=== PATIENT | male | born 1955 | race Caucasian/White ===

== ENCOUNTER 2019-02-26 15:16 | Inpatient (IN) | payer OTHER ==
[~2019-02-26] VITALS: Ht 188 cm; Wt 81.7 kg
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
[2019-02-26 16:32] VITALS: BP 134/88
[2019-02-26] MEDS ORDERED: METHYL SALICYLATE/MENTHOL TOPICAL OINTMENT 29GM TUBE. TP PRN (16:45)
[2019-02-26] MEDS ORDERED: MAG HYDROX/AL HYDROX/SIMETH 30 ML ORAL.SUSP PO PRN (16:45)
[2019-02-26] MEDS ORDERED: MAGNESIUM HYDROXIDE 2,400 MG/30 ML ORAL.SUSP. PO PRN (16:45)
[2019-02-26] MEDS ORDERED: ATOR40TA59 PO (17:08)
[2019-02-26] MEDS ORDERED: METF10007 PO (17:08)
[2019-02-26] MEDS ORDERED: ASPI-630 PO (17:08)
[2019-02-26] MEDS ORDERED: DULO60CA6 PO (17:08)
[2019-02-26] MEDS ORDERED: CYAN10005 PO (17:08)
[2019-02-26] MEDS ORDERED: SAXA5TAB PO (17:08)
[2019-02-26] MEDS ORDERED: CYAN10002 IJ ×2 (17:08→17:12)
[2019-02-26 17:24] LABS: BASO % 0 % (0-3); EOS # 0.1 x10^3/uL (0.0-0.7); EOS % 1 % (0-3); HEMATOCRIT 51.3 % (39.0-53.0); HEMOGLOBIN 17.2 g/dL (13.0-17.5); LYMPH # 0.8 x10^3/uL (1.0-4.8); LYMPH % 8 % (24-48); MEAN CORPUSCULAR HEMOGLOBIN 29 pg (25-35); MEAN CORPUSCULAR HGB CONC 34 g/dL (31-37); MEAN CORPUSCULAR VOLUME 87 fL (79-100); MONO # 0.5 x10^3/uL (0.0-1.1); MONO % 5 % (0-9); NEUT # 8.7 x10^3uL (1.8-7.7); NEUT % 86 % (31-73); PLATELET COUNT 187 x10^3/uL (140-400); WHITE BLOOD COUNT 10.2 x10^3/uL (4.0-11.0)
[2019-02-26] MEDS: metFORMIN 500 MG TABLET PO SCH (17:33)
[2019-02-26 17:35] LABS: ALBUMIN 3.6 g/dL (3.4-5.0); ALBUMIN/GLOBULIN RATIO 0.8 (1.0-1.7); CALCIUM 9.9 mg/dL (8.5-10.1); CREATININE 1.3 mg/dL (0.7-1.3); GFR 56.1; MAGNESIUM 1.8 mg/dL (1.8-2.4); POTASSIUM 4.1 mmol/L (3.5-5.1); TOTAL BILIRUBIN 0.3 mg/dL (0.2-1.0)
--- NOTE | 2019-02-26 20:00 | NUR ---
Behavior Intervention Response and Plan: BIRP Note: Behavior: Assumed Care of patient, patient located in Hallway at shift change. Patient exhibited the following behavior Disorganized, Calm, Cooperative. Brief assessment on rounds of vital signs, medication needs, lab studies, and pain. Treatment plan problems . Intervention: Patient assessed and the following interventions initiated safety checks 15 Minute Checks Cognitive Assessment , Head to toe Assessment , Medications. Response: After interactions and interventions patient responded in the following manner, Drowsy , Calm ,Sleeping. Continue to assess behaviors and condition will continue to monitor throughout the shift as needed. Patient educated on ADL's, and hand hygiene. Plan: Continue to monitor Master Treatment Plan for patient's progress toward short term goals of No harm To self/ others, Decreased Anxiety, senior care goals to return to previous living setting vs placement. Continue to assess patient for changes in above assessment. Monitor for medication needs, pain, and safety concerns. Hourly rounding performed to ensure safe environment.
[2019-02-26] MEDS: ATORVASTATIN CALCIUM 20 MG TABLET PO SCH (21:12)
--- NOTE | 2019-02-26 22:44 | PDOC ---
Exam Note: Da Note: Please also refer to the separate dictated note~for this date of service dictated separately. Discussed the patient with Nursing staff reviewed the chart.~Reviewed interim history and current functioning. Reviewed vital signs,~ Labs/ Radiology~and current medications noted below. Continue current treatment with the changes noted in the dictated addendum note Assessment: Vital Signs: Vital Signs Date Time Temp Pulse Resp B/P (MAP) Pulse Ox O2 Delivery O2 Flow Rate FiO2 02/26/19 16:32 97.6 84 19 134/88 (103) 99 Room Air Labs: Laboratory Tests Test 02/26/19 17:10 White Blood Count 10.2 x10^3/uL (4.0-11.0) Red Blood Count 5.90 x10^6/uL (4.30-5.70) H Hemoglobin 17.2 g/dL (13.0-17.5) Hematocrit 51.3 % (39.0-53.0) Mean Corpuscular Volume 87 fL (79-100) Mean Corpuscular Hemoglobin 29 pg (25-35) Mean Corpuscular Hemoglobin Concent 34 g/dL (31-37) Red Cell Distribution Width 14.0 % (11.5-14.5) Platelet Count 187 x10^3/uL (140-400) Neutrophils (%) (Auto) 86 % (31-73) H Lymphocytes (%) (Auto) 8 % (24-48) L Monocytes (%) (Auto) 5 % (0-9) Eosinophils (%) (Auto) 1 % (0-3) Basophils (%) (Auto) 0 % (0-3) Neutrophils # (Auto) 8.7 x10^3uL (1.8-7.7) H Lymphocytes # (Auto) 0.8 x10^3/uL (1.0-4.8) L Monocytes # (Auto) 0.5 x10^3/uL (0.0-1.1) Eosinophils # (Auto) 0.1 x10^3/uL (0.0-0.7) Basophils # (Auto) 0.0 x10^3/uL (0.0-0.2) Sodium Level 140 mmol/L (136-145) Potassium Level 4.1 mmol/L (3.5-5.1) Chloride Level 102 mmol/L (98-107) Carbon Dioxide Level 31 mmol/L (21-32) Anion Gap 7 (6-14) Blood Urea Nitrogen 18 mg/dL (8-26) Creatinine 1.3 mg/dL (0.7-1.3) Estimated GFR (Cockcroft-Gault) 56.1 BUN/Creatinine Ratio 14 (6-20) Glucose Level 187 mg/dL (70-99) H Calcium Level 9.9 mg/dL (8.5-10.1) Magnesium Level 1.8 mg/dL (1.8-2.4) Total Bilirubin 0.3 mg/dL (0.2-1.0) Aspartate Amino Transferase (AST) 14 U/L (15-37) L Alanine Aminotransferase (ALT) 24 U/L (16-63) Alkaline Phosphatase 125 U/L (46-116) H Total Protein 8.0 g/dL (6.4-8.2) Albumin 3.6 g/dL (3.4-5.0) Albumin/Globulin Ratio 0.8 (1.0-1.7) L Current Medications: Meds: Current Medications Acetaminophen (Tylenol) 650 mg PRN Q6HRS PRN PO PAIN / TEMP; Start 02/26/19 at 16:45 Multi-Ingredient Ointment (Analgesic [place]) 1 kory PRN QID PRN TP MUSCLE PAIN; Start 02/26/19 at 16:45 Al Hydroxide/Mg Hydroxide (Mylanta Plus Xs) 15 ml PRN AFTMEALHC PRN PO DYSPEPSIA; Start 02/26/19 at 16:45 Magnesium Hydroxide (Milk Of Magnesia) 2,400 mg PRN QHS PRN PO CONSTIPATION; Start 02/26/19 at 16:45 Cyanocobalamin (Vitamin B-12) 1,000 mcg WEEKLY IM ; Start 03/04/19 at 09:00; Stop 03/04/19 at 09:00; Status DC Cyanocobalamin (Vitamin B-12) 1,000 mcg DAILY PO ; Start 02/27/19 at 09:00 Aspirin (Children'S Aspirin) 81 mg DAILYWBKFT PO ; Start 02/27/19 at 08:00 Atorvastatin Calcium (Lipitor) 40 mg QHS PO Last administered on 02/26/19at 21:12 ; Start 02/26/19 at 21:00 Duloxetine HCl (Cymbalta) 90 mg DAILY PO ; Start 02/27/19 at 09:00 Metformin HCl (Glucophage) 1,000 mg BIDWMEALS PO Last administered on 02/26/19at 17:33; Start 02/26/19 at 17:00 Linagliptin (Tradjenta) 5 mg DAILY PO ; Start 02/27/19 at 09:00 Cyanocobalamin (Vitamin B-12) 1,000 mcg [id number] IM ; Start 04/15/19 at 09:00 Active Scripts Active Reported Cyanocobalamin Injection (Cyanocobalamin (Vitamin B-12)) 1,000 Mcg/1 Ml Vial 1, 000 Mcg IJ [id number] Onglyza (Saxagliptin Hcl) 5 Mg Tablet 5 Mg PO DAILY Metformin Hcl 1,000 Mg Tablet 1,000 Mg PO BIDWMEALS Cymbalta (Duloxetine Hcl) 60 Mg Capsule.dr 90 Mg PO DAILY Atorvastatin Calcium 40 Mg Tablet 40 Mg PO QHS Aspirin 81 Mg Tab.chew 81 Mg PO DAILY Cyanocobalamin Injection (Cyanocobalamin (Vitamin B-12)) 1,000 Mcg/1 Ml Vial 1, 000 Mcg IJ WEEKLY Vitamin B-12 (Cyanocobalamin (Vitamin B-12)) 1,000 Mcg Tablet 1,000 Mcg PO DAILY I have reviewed the current psychotropics carefully including drug interactions. Risk benefit ratio favors no change other than as noted in my dictated progress note. 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
[2019-02-27 03:07] LABS: HEMOGLOBIN A1C 7.8 % (4.8-5.6)
[2019-02-27 04:11] LABS: THYROXINE 7.5 ug/dL (4.5-12.0)
[2019-02-27 05:51] VITALS: BP 129/80
[2019-02-27 08:18] LABS: BACTERIA,URINE 0 /HPF (0-FEW); BILIRUBIN,URINE NEG (NEG); CLARITY,URINE CLEAR; COLOR,URINE YELLOW; GLUCOSE,URINE NEG (NEG); NITRITE,URINE NEG (NEG); RBC,URINE RARE /HPF (0-2); SQUAMOUS EPITHELIAL CELL,UR OCC /LPF; UROBILINOGEN,URINE 0.2 mg/dL (0.2 mg/dL); WBC,URINE OCC /HPF (0-4)
[2019-02-27] MEDS: metFORMIN 500 MG TABLET PO SCH ×2 (08:30→17:19)
[2019-02-27] MEDS: CYANOCOBALAMIN (VITAMIN B-12) 1,000 MCG TABLET. PO SCH (08:31)
[2019-02-27] MEDS: LINAGLIPTIN 5 MG TABLET PO SCH (08:31)
[2019-02-27] MEDS: DULoxetine HCL 30 MG CAPSULE.DR PO SCH (08:31)
[2019-02-27] MEDS: ASPIRIN 81 MG TAB.CHEW PO SCH (08:31)
--- NOTE | 2019-02-27 08:35 | NUR ---
On 02/26/19, 9:29am, call placed to Ashely at [employer] to verify Loki has in patient psychiatric benefits. Ashely confirmed Loki has benefits. Upon admit to [facility], SW will need to call [phone] to provide diagnosis to determine if pre-authorization and concurrent reviews will be necessary. Call reference number is [id number].
--- NOTE | 2019-02-27 09:23 | NUR ---
SW received a call from pt sister to make sure that pt had all of the paperwork needed for pt admission. SW informed pt sister that she has not reviewed pt paperwork yet, as he was just admitted last night. However, SW will look through pt chart and will let pt sister know. She is just mainly concerned about whether or not his information from the physician was transferred with him. Her concerns are that pt is to receive a B12 shot and wants to make sure that he is able to receive that while here. REJI will return his sister's call with that information.
--- NOTE | 2019-02-27 11:09 | NUR ---
Nursing Note Calm, compliant w/ medications taken whole, talkative about acquiring antique radios and television and reselling them via the computer. Gave very detailed info about where he traveled, things he acquired, and what rare type of wood some the radios were made of. Pt lost his train of thought a number of times during the conversation.
--- NOTE | 2019-02-27 11:23 | NUR ---
REJI contacted arnie to complete potential prior authorization and spoke with Kat who would not take the prior auth over the phone. She requested that SW complete the online form and attach clinicals. Kat walked REJI through the process and made sure SW knew that they had a 24 hour time frame to inform SW of pt PA status and whether or not a concurrent review will be recommended.
[2019-02-27 13:54] LABS: THYROID STIM HORMONE (TSH) 2.281 uIU/mL (0.358-3.740)
[2019-02-27 16:50] VITALS: BP 106/70
--- NOTE | 2019-02-27 17:04 | RAD ---
CT HEAD WO CONTRAST Indication: BASELINE, FORGETFULLNESS, LOOSES TRAIN OF THOUGHT. Exposure: One or more of the following individualized dose reduction techniques were utilized for this examination: 1. Automated exposure control 2. Adjustment of the mA and/or kV according to patient size 3. Use of iterative reconstruction technique. Technique: Standard imaging without intravenous contrast. No prior study for comparison. Posterior fossa unremarkable. No acute intracranial hemorrhage, mass effect, midline shift or abnormal extra-axial fluid collection. Mild prominence of ventricles and sulci compatible with generalized atrophy. The partially visualized paranasal sinuses are clear. No acute skull abnormality. Orbits appear unremarkable. No evidence of large area of scalp swelling. IMPRESSION: No evidence of acute intracranial hemorrhage or mass effect. Consider MR brain if continued workup is warranted. Electronically signed by: Gabe Varner MD (02/27/2019 5:01 PM) [facility]
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
[2019-02-27] MEDS: QUEtiapine 25 MG TABLET. PO SCH (19:55)
[2019-02-27] MEDS: CHOLECALCIFEROL (VITAMIN D3) 50,000 UNIT CAPSULE PO SCH (19:55)
[2019-02-27] MEDS: ATORVASTATIN CALCIUM 20 MG TABLET PO SCH (19:55)
--- NOTE | 2019-02-27 22:36 | PDOC ---
Exam Note: Da Note: Please also refer to the separate dictated note~for this date of service dictated separately.~Patient seen individually. Discussed the patient with Nursing staff reviewed the chart.~Reviewed interim history and current functioning. Reviewed vital signs,~Labs/ Radiology~and current medications noted below. Continue current treatment with the changes noted in the dictated addendum note Assessment: Vital Signs: Vital Signs Date Time Temp Pulse Resp B/P (MAP) Pulse Ox O2 Delivery O2 Flow Rate FiO2 02/27/19 16:50 97.4 86 20 106/70 (82) 97 02/26/19 16:32 Room Air I&O Intake and Output 02/27/19 07:00 Intake Total 480 ml Balance 480 ml Intake Oral 480 ml Labs: Laboratory Tests Test 02/27/19 07:45 02/27/19 07:50 Urine Collection Type Void Urine Color Yellow Urine Clarity Clear Urine pH 5.0 Urine Specific [place] 1.025 Urine Protein Neg (NEG-TRACE) Urine Glucose (UA) Neg mg/dL (NEG) Urine Ketones (Stick) Neg mg/dL (NEG) Urine Blood Neg (NEG) Urine Nitrite Neg (NEG) Urine Bilirubin Neg (NEG) Urine Urobilinogen Dipstick 0.2 mg/dL (0.2 mg/dL) Urine Leukocyte Esterase Neg (NEG) Urine RBC Rare /HPF (0-2) Urine WBC Occ /HPF (0-4) Urine Squamous Epithelial Cells Occ /LPF Urine Bacteria 0 /HPF (0-FEW) Urine Mucus Slight /LPF Glucose (Fingerstick) 138 mg/dL (70-99) H Current Medications: Meds: Current Medications Acetaminophen (Tylenol) 650 mg PRN Q6HRS PRN PO PAIN / TEMP; Start 02/26/19 at 16:45 Multi-Ingredient Ointment (Analgesic [place]) 1 kory PRN QID PRN TP MUSCLE PAIN; Start 02/26/19 at 16:45 Al Hydroxide/Mg Hydroxide (Mylanta Plus Xs) 15 ml PRN AFTMEALHC PRN PO DYSPEPSIA; Start 02/26/19 at 16:45 Magnesium Hydroxide (Milk Of Magnesia) 2,400 mg PRN QHS PRN PO CONSTIPATION; Start 02/26/19 at 16:45 Cyanocobalamin (Vitamin B-12) 1,000 mcg WEEKLY IM ; Start 03/04/19 at 09:00; Stop 03/04/19 at 09:00; Status DC Cyanocobalamin (Vitamin B-12) 1,000 mcg DAILY PO Last administered on 02/27/19 08:31; Start 02/27/19 at 09:00 Aspirin (Children'S Aspirin) 81 mg DAILYWBKFT PO Last administered on 02/27/19 08:31; Start 02/27/19 at 08:00 Atorvastatin Calcium (Lipitor) 40 mg QHS PO Last administered on 02/27/19 19:55 ; Start 02/26/19 at 21:00 Duloxetine HCl (Cymbalta) 90 mg DAILY PO Last administered on 02/27/19 08:31; Start 02/27/19 at 09:00 Metformin HCl (Glucophage) 1,000 mg BIDWMEALS PO Last administered on 02/27/19 17:19; Start 02/26/19 at 17:00 Linagliptin (Tradjenta) 5 mg DAILY PO Last administered on 02/27/19 08:31; Start 02/27/19 at 09:00 Cyanocobalamin (Vitamin B-12) 1,000 mcg [id number] IM ; Start 04/15/19 at 09:00 Rivastigmine (Exelon) 1 patch DAILY TD ; Start 02/28/19 at 09:00; Stop 03/04/19 at 23:50 Rivastigmine (Exelon) 1 patch DAILY TD ; Start 03/05/19 at 09:00 Quetiapine Fumarate (SEROquel) 25 mg QHS PO Last administered on 02/27/19 19:55 ; Start 02/27/19 at 21:00 Vitamin D (Vitamin D3) 50,000 unit WEEKLY PO Last administered on 02/27/19 19: 55; Start 02/27/19 at 18:30 Active Scripts Active Reported Cyanocobalamin Injection (Cyanocobalamin (Vitamin B-12)) 1,000 Mcg/1 Ml Vial 1, 000 Mcg IJ [id number] Onglyza (Saxagliptin Hcl) 5 Mg Tablet 5 Mg PO DAILY Metformin Hcl 1,000 Mg Tablet 1,000 Mg PO BIDWMEALS Cymbalta (Duloxetine Hcl) 60 Mg Capsule.dr 90 Mg PO DAILY Atorvastatin Calcium 40 Mg Tablet 40 Mg PO QHS Aspirin 81 Mg Tab.chew 81 Mg PO DAILY Cyanocobalamin Injection (Cyanocobalamin (Vitamin B-12)) 1,000 Mcg/1 Ml Vial 1, 000 Mcg IJ WEEKLY Vitamin B-12 (Cyanocobalamin (Vitamin B-12)) 1,000 Mcg Tablet 1,000 Mcg PO DAILY I have reviewed the current psychotropics carefully including drug interactions. Risk benefit ratio favors no change other than as noted in my dictated progress note. 

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
[2019-02-28 06:05] VITALS: BP 102/67
[2019-02-28] MEDS: DULoxetine HCL 30 MG CAPSULE.DR PO SCH (08:41)
[2019-02-28] MEDS: CYANOCOBALAMIN (VITAMIN B-12) 1,000 MCG TABLET. PO SCH (08:41)
[2019-02-28] MEDS: ASPIRIN 81 MG TAB.CHEW PO SCH (08:41)
[2019-02-28] MEDS: LINAGLIPTIN 5 MG TABLET PO SCH (08:41)
[2019-02-28] MEDS: metFORMIN 500 MG TABLET PO SCH ×2 (08:41→16:55)
[2019-02-28] MEDS: RIVASTIGMINE 4.6MG PATCH. TD SCH (08:43)
[2019-02-28] MEDS: ACETAMINOPHEN 325 MG TABLET PO PRN (09:30)
--- NOTE | 2019-02-28 09:30 | NUR ---
Nursing Note Pt calm, talkative, compliant w/ meds taken whole. Pt C/O headache 03/06, Tylenol 650mg given. Will continue to monitor.
--- NOTE | 2019-02-28 10:09 | NUR ---
WEEKLY ACTIVITY THERAPY NOTE Date of Admission: 02/26/2019 Date of AT assessment: TBD Goal aimed: TBD Initial goal: TBD Weekly progress towards goal: NA Group participation level: NA Weekly highlights: TBD Beneficial adaptations: TBD Behaviors observed: TBD Plan: meet/ assess Pt
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
[2019-02-28 16:16] VITALS: BP 104/66
--- NOTE | 2019-02-28 16:53 | NUR ---
Nursing Note Pt rec a phone call from sister Lissy and seemed that call went well.
[2019-02-28] MEDS: ATORVASTATIN CALCIUM 20 MG TABLET PO SCH (20:54)
[2019-02-28] MEDS: QUEtiapine 25 MG TABLET. PO SCH (20:54)
--- NOTE | 2019-02-28 22:44 | PDOC ---
Exam Note: Da Note: Please also refer to the separate dictated note~for this date of service dictated separately.~Patient seen individually. Discussed the patient with Nursing staff reviewed the chart.~Reviewed interim history and current functioning. Reviewed vital signs,~Labs/ Radiology~and current medications noted below. Continue current treatment with the changes noted in the dictated addendum note Assessment: Vital Signs: Vital Signs Date Time Temp Pulse Resp B/P (MAP) Pulse Ox O2 Delivery O2 Flow Rate FiO2 02/28/19 16:16 97.2 87 19 104/66 (79) 99 Room Air I&O Intake and Output 02/28/19 07:00 Intake Total 1080 ml Balance 1080 ml Intake Oral 1080 ml Labs: Laboratory Tests Test 02/28/19 07:33 Glucose (Fingerstick) 150 mg/dL (70-99) H Current Medications: Meds: Current Medications Acetaminophen (Tylenol) 650 mg PRN Q6HRS PRN PO PAIN / TEMP Last administered on 02/28/19at 09:30; Start 02/26/19 at 16:45 Multi-Ingredient Ointment (Analgesic [place]) 1 kory PRN QID PRN TP MUSCLE PAIN; Start 02/26/19 at 16:45 Al Hydroxide/Mg Hydroxide (Mylanta Plus Xs) 15 ml PRN AFTMEALHC PRN PO DYSPEPSIA; Start 02/26/19 at 16:45 Magnesium Hydroxide (Milk Of Magnesia) 2,400 mg PRN QHS PRN PO CONSTIPATION; Start 02/26/19 at 16:45 Cyanocobalamin (Vitamin B-12) 1,000 mcg WEEKLY IM ; Start 03/04/19 at 09:00; Stop 03/04/19 at 09:00; Status DC Cyanocobalamin (Vitamin B-12) 1,000 mcg DAILY PO Last administered on 02/28/19at 08:41; Start 02/27/19 at 09:00 Aspirin (Children'S Aspirin) 81 mg [id number] PO Last administered on 02/28/19at 08:41; Start 02/27/19 at 08:00 Atorvastatin Calcium (Lipitor) 40 mg QHS PO Last administered on 02/28/19at 20:54 ; Start 02/26/19 at 21:00 Duloxetine HCl (Cymbalta) 90 mg DAILY PO Last administered on 4/4/19at 08:41; Start 02/27/19 at 09:00 Metformin HCl (Glucophage) 1,000 mg BIDWMEALS PO Last administered on 02/28/19 16:55; Start 02/26/19 at 17:00 Linagliptin (Tradjenta) 5 mg DAILY PO Last administered on 02/28/19 08:41; Start 02/27/19 at 09:00 Cyanocobalamin (Vitamin B-12) 1,000 mcg [id number] IM ; Start 04/15/19 at 09:00 Rivastigmine (Exelon) 1 patch DAILY TD Last administered on 02/28/19 08:43; Start 02/28/19 at 09:00; Stop 03/04/19 at 23:50 Rivastigmine (Exelon) 1 patch DAILY TD ; Start 03/05/19 at 09:00 Quetiapine Fumarate (SEROquel) 25 mg QHS PO Last administered on 02/28/19 20:54 ; Start 02/27/19 at 21:00 Vitamin D (Vitamin D3) 50,000 unit WEEKLY PO Last administered on 02/27/19 19: 55; Start 02/27/19 at 18:30 Cetirizine HCl (ZyrTEC) 10 mg DAILY PO ; Start 03/01/19 at 09:00 Active Scripts Active Reported Cyanocobalamin Injection (Cyanocobalamin (Vitamin B-12)) 1,000 Mcg/1 Ml Vial 1, 000 Mcg IJ [id number] Onglyza (Saxagliptin Hcl) 5 Mg Tablet 5 Mg PO DAILY Metformin Hcl 1,000 Mg Tablet 1,000 Mg PO BIDWMEALS Cymbalta (Duloxetine Hcl) 60 Mg Capsule.dr 90 Mg PO DAILY Atorvastatin Calcium 40 Mg Tablet 40 Mg PO QHS Aspirin 81 Mg Tab.chew 81 Mg PO DAILY Cyanocobalamin Injection (Cyanocobalamin (Vitamin B-12)) 1,000 Mcg/1 Ml Vial 1, 000 Mcg IJ WEEKLY Vitamin B-12 (Cyanocobalamin (Vitamin B-12)) 1,000 Mcg Tablet 1,000 Mcg PO DAILY I have reviewed the current psychotropics carefully including drug interactions. Risk benefit ratio favors no change other than as noted in my dictated progress note. 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
[2019-02-28] MEDS ORDERED: ONDANSETRON ODT 4 MG TAB.RAPDIS PO PRN (23:30)
[2019-02-28] MEDS ORDERED: BISACODYL 10 MG SUPP.RECT PR PRN (23:30)
--- NOTE | 2019-02-28 23:55 | NUR ---
Pt had two rounds of emesis this evening. On assessment pt denies any pain or abdominal discomfort. Pt has active bowel sounds, but LBM is 4/1. Pt reports, "I just feel it rumble before I vomit". Pt given a basin and sprite to sip on. Dr. Wayne notified, new orders for PRN Zofran and Dulcolax ordered at this time. Zofran and Dulcolax administered. Pt tolerated well, will continue to monitor.
[2019-03-01 05:41] VITALS: BP 117/76
[2019-03-01] MEDS: RIVASTIGMINE 4.6MG PATCH. TD SCH (08:10)
[2019-03-01] MEDS: LINAGLIPTIN 5 MG TABLET PO SCH (08:10)
[2019-03-01] MEDS: CYANOCOBALAMIN (VITAMIN B-12) 1,000 MCG TABLET. PO SCH (08:10)
[2019-03-01] MEDS: metFORMIN 500 MG TABLET PO SCH ×2 (08:10→18:02)
[2019-03-01] MEDS: DULoxetine HCL 30 MG CAPSULE.DR PO SCH (08:10)
[2019-03-01] MEDS: ASPIRIN 81 MG TAB.CHEW PO SCH (08:10)
[2019-03-01] MEDS: CETIRIZINE HCL 10 MG TABLET PO SCH (08:14)
[2019-03-01] MEDS: ACETAMINOPHEN 325 MG TABLET PO PRN (08:20)
--- NOTE | 2019-03-01 11:41 | NUR ---
Behavior Intervention Response and Plan: BIRP Note: Behavior: Assumed Care of patient, patient located in Patient Room at shift change. Patient exhibited the following behavior Disorganized, Calm, Withdrawn. Brief assessment on rounds of vital signs, medication needs, lab studies, and pain. Treatment plan problems . Intervention: Patient assessed and the following interventions initiated safety checks 15 Minute Checks Cognitive Assessment , Head to toe Assessment , Medications. Response: After interactions and interventions patient responded in the following manner, Disorganized , Calm ,Compliant. Continue to assess behaviors and condition will continue to monitor throughout the shift as needed. Patient educated on ADL's, and hand hygiene. Plan: Continue to monitor Master Treatment Plan for patient's progress toward short term goals of Decreased Agitation, Decreased Aggression, fci goals to return to previous living setting vs placement. Continue to assess patient for changes in above assessment. Monitor for medication needs, pain, and safety concerns. Hourly rounding performed to ensure safe environment.
--- NOTE | 2019-03-01 12:00 | NUR ---
PSYCHOSOCIAL ASSESSMENT ADMISSION DATE: 02/26/19 CONTACT INFORMATION: DPOA/Guardian Contact Name: Lissy Pleitez Contact Address: Contact Phone #: ETHNIC ORIGIN: REASONS FOR ADMISSION: Confusion/Disoriented Hallucinations Poor impulse control Suspicious/paranoid ADDITIONAL ADMISSION COMMENTS: REASON FOR ADMISSION IN PATIENT/FAMILY'S OWN WORDS: Concerns that pt really has Dementia but trying to cover it with other behaviors. PATIENT/FAMILY EXPECTATIONS FOR ADMISSION: Finalize more of an appropriate diagnosis LIVING SITUATION: Patient lives with: Alone FAMILY RELATIONS: Marital Status: Single # of Marriages: 0 # of Children: 0 [facility] Family Support: Concerned Involved in DC Planning Additional Comments r/t Family: Pt sister reports that pt never and never had children. Pt has not dated in over 30 years. SIGNIFICANT PSYCHIATRIC/MEDICAL HISTORY: Psychiatric/Treatment History: Pertinent Family History: Hx of depression and anxiety in the family. HISTORICAL DATA: Childhood Environment: [place] [facility] Supportive Comment: Pt sister reports that she and her brothers (3 boys and 1 girl) had a great family life. Their parents worked and they took family trips. As pt got older, he spent a lot of time with his father tinkering on cars and talked to his mother a couple times a day. When his parents (father 10 years ago and his mother 7 years ago), it was very traumatic for pt. Psychological Abuse: None Additional Comments: None that pt sister is aware Drug Abuse History last 12 months: No Comment: Last drank 30 years ago. 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 [employer] service: N Judaism background: No Preference Sexual orientation: N/A Educational Level: Bachelors Degree Past/Present Interests/Hobbies: computers, cars, games (trivia) Financial support/resources: [facility] Monthly income: Person handling finances: Pt sister helps with finances Do you have a history of legal problems: N Cultural considerations: None SOCIAL RELATIONSHIPS-CURRENT/PAST: Psychiatrist: Deysi [place] [facility] PCP: Tejinder Deng Counselor/Therapist: [facility]: Support Group: Junior Mechanical Engineer/Respiratory Services Manager: Other relationships: STRENGTHS & WEAKNESSES: Patient's strengths: Good family support Good verbal skills Other patient strengths: Patient's weaknesses: Impulsive Other patient weaknesses: Poor coping skills PRELIMINARY PLAN OF TREATMENT: Preliminary plan: Dec. Hallucination/Delus Decrease Isolation Promote Coping Skill Medication Stabilization Other preliminary treatment comments: DISCHARGE PLANNING: Discharge planning/disposition: Current Living Arrange. Other Additional discharge needs identified: Pt sister is concerned that pt may not be able to return home or if he does, he will need extra services. ADDITIONAL INFORMATION: Other Pertinent Data: REJI completed pt assessment with pt sister who expressed a lot of concerns about pt medical status. Pt sister reports that on Monday pt is to get a B12 shot that is to help with pt low levels. Pt levels were at 200 and she was informed that the normal levels were between 700 and 800. Pt sister is concerned about pt diagnosis as to whether or not this is Dementia, Clinical Depression or PTSD as pt suffered 5 losses within a year time frame. Pt sister also reports that pt is either not seeing well or his brain just can't compute things. REJI will continue to keep pt sister up to date and work with the insurance company in pt stay and discharge.
--- NOTE | 2019-03-01 13:00 | NUR ---
Activity Therapy Assessment Completed based on observation, interview, and [facility]. Pt. was in the dining room when therapist approached. Pt. asked for help finding a blanket, getting a glass of water and getting a file for his nails. Therapist assisted Pt. in obtaining these items and then Pt. agreed to meet in his room. Pt. is tall, ambulates independently, wears glasses, and is generally friendly with others, albeit reserved and withdrawn to his room unless invited to a group. Pt. talked at length about his old boss, how he lost his job, had difficulty finding another job and had to sell his home, and how he may lose his apartment soon, even though his sister and DPOA, Lissy, has been trying to help him. Pt. jumped topics frequently and would 'ramble' at times, easily getting off topic. 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 Pt. has been living in a high stress environment for a number of years and seems on edge or anxious often. Pt. 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 Pt. stated he is here because ' i think i have been hallucinating'. DPOA seems concerned that he may have dementia and is seeking a clearer diagnosis. Pt. needs significant financial and housing support upon discharge. Initial goal set to increase stress management skills: Pt. will participate in at least three Activity Therapy groups per week (needs invitation/reminder).
--- NOTE | 2019-03-01 13:45 | NUR ---
SW faxed over psychiatry, nursing notes and medication list for concurrent review to [facility] for continued stay on [facility]. REJI will await fax to receive information pt approval/denial.
--- NOTE | 2019-03-01 18:42 | PN ---
DATE: 02/27/2019 PSYCHIATRIC PROGRESS NOTE This late entry 02/27/2019 covers elements not covered in my initial note. SUBJECTIVE: I met with the patient in the evening. The patient slept 8-3/4 hours previous night. At night, he was compliant, disorganized. On 02/27/2019, compliant with his medications, more interactive. We will check a CT head if not done in one month. REVIEW OF SYSTEMS: No CV, , pulmonary, eye, ENT system symptoms on review. Reliability poor. MENTAL STATUS EXAM: Oriented to himself and situation. Speech has some latency, coherent, rapid at times. Abstraction fair, computation impaired, language function intact, attention span short. Mood and affect somewhat anxious, labile. LABORATORY DATA: Reviewed. IMPRESSION: Unchanged from initial note. PLAN: Start Exelon patch 4.6 mg a day, increasing in 5 days to 9.5 mg. Start Seroquel 25 mg at bedtime for his paranoia. Maintain Cymbalta [address] head as noted, get past psychiatric records. MAN Karyn STEVENS MD DR: YECENIA/will JOB#: [id number] / [id number]
--- NOTE | 2019-03-01 18:52 | NUR ---
pt up adl to meals. has been complaint with meds and cares. pt very disorganized. tried to put water into his cup of meds.
[2019-03-01] MEDS: ATORVASTATIN CALCIUM 20 MG TABLET PO SCH (19:43)
[2019-03-01] MEDS: QUEtiapine 25 MG TABLET. PO SCH (19:43)
[2019-03-01 21:00] VITALS: BP 117/76
--- NOTE | 2019-03-01 22:39 | PDOC ---
Exam Note: Ad Note: Please also refer to the separate dictated note~for this date of service dictated separately.~Patient seen individually. Discussed the patient with Nursing staff reviewed the chart.~Reviewed interim history and current functioning. Reviewed vital signs,~Labs/ Radiology~and current medications noted below. Continue current treatment with the changes noted in the dictated addendum note Assessment: Vital Signs: Vital Signs Date Time Temp Pulse Resp B/P (MAP) Pulse Ox O2 Delivery O2 Flow Rate FiO2 03/01/19 05:41 98.6 84 18 117/76 (90) 98 Room Air I&O Intake and Output 03/01/19 07:00 Intake Total 960 ml Balance 960 ml Intake Oral 960 ml # Bowel Movements 1 Labs: Laboratory Tests Test 03/01/19 07:31 Glucose (Fingerstick) 138 mg/dL (70-99) H Current Medications: Meds: Current Medications Acetaminophen (Tylenol) 650 mg PRN Q6HRS PRN PO PAIN / TEMP Last administered on 03/01/19at 08:20; Start 02/26/19 at 16:45 Multi-Ingredient Ointment (Analgesic [place]) 1 kory PRN QID PRN TP MUSCLE PAIN; Start 02/26/19 at 16:45 Al Hydroxide/Mg Hydroxide (Mylanta Plus Xs) 15 ml PRN AFTMEALHC PRN PO DYSPEPSIA; Start 02/26/19 at 16:45 Magnesium Hydroxide (Milk Of Magnesia) 2,400 mg PRN QHS PRN PO CONSTIPATION; Start 02/26/19 at 16:45 Cyanocobalamin (Vitamin B-12) 1,000 mcg WEEKLY IM ; Start 03/04/19 at 09:00; Stop 03/04/19 at 09:00; Status DC Cyanocobalamin (Vitamin B-12) 1,000 mcg DAILY PO Last administered on 03/01/19at 08:10; Start 02/27/19 at 09:00 Aspirin (Children'S Aspirin) 81 mg [id number] PO Last administered on 03/01/19at 08:10; Start 02/27/19 at 08:00 Atorvastatin Calcium (Lipitor) 40 mg QHS PO Last administered on 03/01/19at 19:43 ; Start 02/26/19 at 21:00 Duloxetine HCl (Cymbalta) 90 mg DAILY PO Last administered on 03/01/19 08:10; Start 02/27/19 at 09:00 Metformin HCl (Glucophage) 1,000 mg BIDWMEALS PO Last administered on 03/01/19 18:02; Start 02/26/19 at 17:00 Linagliptin (Tradjenta) 5 mg DAILY PO Last administered on 03/01/19 08:10; Start 02/27/19 at 09:00 Cyanocobalamin (Vitamin B-12) 1,000 mcg [id number] IM ; Start 04/15/19 at 09:00 Rivastigmine (Exelon) 1 patch DAILY TD Last administered on 03/01/19 08:10; Start 02/28/19 at 09:00; Stop 03/04/19 at 23:50 Rivastigmine (Exelon) 1 patch DAILY TD ; Start 03/05/19 at 09:00 Quetiapine Fumarate (SEROquel) 25 mg QHS PO Last administered on 03/01/19 19:43 ; Start 02/27/19 at 21:00 Vitamin D (Vitamin D3) 50,000 unit WEEKLY PO Last administered on 02/27/19 19: 55; Start 02/27/19 at 18:30 Cetirizine HCl (ZyrTEC) 10 mg DAILY PO Last administered on 03/01/19 08:14; Start 03/01/19 at 09:00 Ondansetron HCl (Zofran Odt) 4 mg PRN Q4HRS PRN PO NAUSEA/VOMITING Last administered on 02/28/19 23:51; Start 02/28/19 at 23:30 Bisacodyl (Dulcolax Supp) 10 mg PRN DAILY PRN AL CONSTIPATION Last administered on 02/28/19 23:51; Start 02/28/19 at 23:30 Cyanocobalamin (Vitamin B-12) 1,000 mcg [id number] IM ; Start 04/02/19 at 09:00 Active Scripts Active Reported Cyanocobalamin Injection (Cyanocobalamin (Vitamin B-12)) 1,000 Mcg/1 Ml Vial 1, 000 Mcg IJ [id number] Onglyza (Saxagliptin Hcl) 5 Mg Tablet 5 Mg PO DAILY Metformin Hcl 1,000 Mg Tablet 1,000 Mg PO BIDWMEALS Cymbalta (Duloxetine Hcl) 60 Mg Capsule.dr 90 Mg PO DAILY Atorvastatin Calcium 40 Mg Tablet 40 Mg PO QHS Aspirin 81 Mg Tab.chew 81 Mg PO DAILY Cyanocobalamin Injection (Cyanocobalamin (Vitamin B-12)) 1,000 Mcg/1 Ml Vial 1, 000 Mcg IJ WEEKLY Vitamin B-12 (Cyanocobalamin (Vitamin B-12)) 1,000 Mcg Tablet 1,000 Mcg PO DAILY I have reviewed the current psychotropics carefully including drug interactions. Risk benefit ratio favors no change other than as noted in my dictated progress note. 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
--- NOTE | 2019-03-02 02:17 | NUR ---
Nursing Note The patient was located in the day room for his assessment and medication pass. The patient was compliant with his medications and took them whole. The patient was very interactive and talked to this nurse about a wide variety of topics. The patient was appropriate during interactions with this nurse and peers. The patient is currently sleeping in his room.
[2019-03-02 06:10] VITALS: BP 104/72
[2019-03-02 07:32] LABS: BASO % 1 % (0-3); EOS # 0.3 x10^3/uL (0.0-0.7); EOS % 5 % (0-3); HEMATOCRIT 43.2 % (39.0-53.0); HEMOGLOBIN 14.8 g/dL (13.0-17.5); LYMPH # 1.7 x10^3/uL (1.0-4.8); LYMPH % 33 % (24-48); MEAN CORPUSCULAR HEMOGLOBIN 30 pg (25-35); MEAN CORPUSCULAR HGB CONC 34 g/dL (31-37); MEAN CORPUSCULAR VOLUME 86 fL (79-100); MONO # 0.6 x10^3/uL (0.0-1.1); MONO % 12 % (0-9); NEUT # 2.6 x10^3uL (1.8-7.7); NEUT % 50 % (31-73); PLATELET COUNT 172 x10^3/uL (140-400); RED BLOOD COUNT 5.02 x10^6/uL (4.30-5.70); RED CELL DISTRIBUTION WIDTH 13.8 % (11.5-14.5); WHITE BLOOD COUNT 5.2 x10^3/uL (4.0-11.0)
[2019-03-02] MEDS: DULoxetine HCL 30 MG CAPSULE.DR PO SCH (07:43)
[2019-03-02] MEDS: CETIRIZINE HCL 10 MG TABLET PO SCH (07:43)
[2019-03-02] MEDS: RIVASTIGMINE 4.6MG PATCH. TD SCH (07:43)
[2019-03-02] MEDS: metFORMIN 500 MG TABLET PO SCH ×2 (07:43→17:00)
[2019-03-02] MEDS: CYANOCOBALAMIN (VITAMIN B-12) 1,000 MCG TABLET. PO SCH (07:43)
[2019-03-02] MEDS: LINAGLIPTIN 5 MG TABLET PO SCH (07:44)
[2019-03-02] MEDS: ASPIRIN 81 MG TAB.CHEW PO SCH (07:44)
[2019-03-02 07:55] LABS: ALBUMIN 3.2 g/dL (3.4-5.0); ALBUMIN/GLOBULIN RATIO 0.9 (1.0-1.7); CALCIUM 9.4 mg/dL (8.5-10.1); CREATININE 1.1 mg/dL (0.7-1.3); GFR 68.1; POTASSIUM 4.2 mmol/L (3.5-5.1); TOTAL BILIRUBIN 0.4 mg/dL (0.2-1.0); TOTAL PROTEIN 6.9 g/dL (6.4-8.2)
--- NOTE | 2019-03-02 11:47 | NUR ---
Behavior Intervention Response and Plan: BIRP Note: Behavior: Assumed Care of patient, patient located in Patient Room at shift change. Patient exhibited the following behavior Disorganized, Calm, Withdrawn. Brief assessment on rounds of vital signs, medication needs, lab studies, and pain. Treatment plan problems . Intervention: Patient assessed and the following interventions initiated safety checks 15 Minute Checks Cognitive Assessment , Head to toe Assessment , Medications. Response: After interactions and interventions patient responded in the following manner, Disorganized , Calm ,Compliant. Continue to assess behaviors and condition will continue to monitor throughout the shift as needed. Patient educated on ADL's, and hand hygiene. Plan: Continue to monitor Master Treatment Plan for patient's progress toward short term goals of Decreased Agitation, Decreased Aggression, fdc goals to return to previous living setting vs placement. Continue to assess patient for changes in above assessment. Monitor for medication needs, pain, and safety concerns. Hourly rounding performed to ensure safe environment.
[2019-03-02 16:58] VITALS: BP 106/65
--- NOTE | 2019-03-02 18:05 | NUR ---
pt up for meals.. compliant with meds. pt very disorganized. withdrawn to room at times.
[2019-03-02] MEDS: QUEtiapine 25 MG TABLET. PO SCH (20:14)
[2019-03-02] MEDS: ATORVASTATIN CALCIUM 20 MG TABLET PO SCH (20:15)
--- NOTE | 2019-03-02 23:03 | PN ---
DATE: 02/28/2019 PSYCHIATRIC PROGRESS NOTE This late entry, date of service 02/28/2019, covers elements not covered in my initial note. SUBJECTIVE: Met with the patient in the evening. The patient was staffed at a treatment team meeting with the entire team in the morning. He slept 8-3/4 hours. Appetite is 100%, reasonably oriented, somewhat paranoid. Reviewed the patient's history and background information at length. He lives in an apartment by himself and his sister lives close by, helps take care of him. He has been getting increasingly forgetful. REVIEW OF SYSTEMS: No CV, , pulmonary, eye, ENT system symptoms on review. MENTAL STATUS EXAM: Oriented to himself and situation. Speech is coherent, abstraction fair, computation impaired, language function intact. Attention span is short. Short-term memory is impaired. LABORATORY DATA: Reviewed. IMPRESSION: Unchanged from initial note. PLAN: No change from initial note. Maintain Cymbalta, Seroquel. Gradually increase the Exelon patch. MAN Karyn STEVENS MD DR: YECENIA/will JOB#: [id number] / [id number]
[2019-03-03 05:44] VITALS: BP 102/69
[2019-03-03] MEDS: DULoxetine HCL 30 MG CAPSULE.DR PO SCH (07:24)
[2019-03-03] MEDS: metFORMIN 500 MG TABLET PO SCH ×2 (07:25→17:00)
[2019-03-03] MEDS: RIVASTIGMINE 4.6MG PATCH. TD SCH (07:25)
[2019-03-03] MEDS: CYANOCOBALAMIN (VITAMIN B-12) 1,000 MCG TABLET. PO SCH (07:25)
[2019-03-03] MEDS: ASPIRIN 81 MG TAB.CHEW PO SCH (07:25)
[2019-03-03] MEDS: LINAGLIPTIN 5 MG TABLET PO SCH (07:25)
[2019-03-03] MEDS: CETIRIZINE HCL 10 MG TABLET PO SCH (07:25)
--- NOTE | 2019-03-03 08:42 | NUR ---
Behavior Intervention Response and Plan: BIRP Note: Behavior: Assumed Care of patient, patient located in Patient Room at shift change. Patient exhibited the following behavior Disorganized, Calm, Withdrawn. Brief assessment on rounds of vital signs, medication needs, lab studies, and pain. Treatment plan problems . Intervention: Patient assessed and the following interventions initiated safety checks 15 Minute Checks Cognitive Assessment , Head to toe Assessment , Medications. Response: After interactions and interventions patient responded in the following manner, Disorganized , Calm ,Compliant. Continue to assess behaviors and condition will continue to monitor throughout the shift as needed. Patient educated on ADL's, and hand hygiene. Plan: Continue to monitor Master Treatment Plan for patient's progress toward short term goals of Decreased Agitation, Decreased Aggression, residential goals to return to previous living setting vs placement. Continue to assess patient for changes in above assessment. Monitor for medication needs, pain, and safety concerns. Hourly rounding performed to ensure safe environment.
--- NOTE | 2019-03-03 08:43 | NUR ---
Behavior Intervention Response and Plan: BIRP Note: Behavior: Assumed Care of patient, patient located in Patient Room at shift change. Patient exhibited the following behavior Disorganized, Calm, Withdrawn. Brief assessment on rounds of vital signs, medication needs, lab studies, and pain. Treatment plan problems . Intervention: Patient assessed and the following interventions initiated safety checks 15 Minute Checks Cognitive Assessment , Head to toe Assessment , Medications. Response: After interactions and interventions patient responded in the following manner, Disorganized , Calm ,Compliant. Continue to assess behaviors and condition will continue to monitor throughout the shift as needed. Patient educated on ADL's, and hand hygiene. Plan: Continue to monitor Master Treatment Plan for patient's progress toward short term goals of Decreased Agitation, Decreased Aggression, group home goals to return to previous living setting vs placement. Continue to assess patient for changes in above assessment. Monitor for medication needs, pain, and safety concerns. Hourly rounding performed to ensure safe environment.
--- NOTE | 2019-03-03 09:50 | PDOC ---
Exam Note: Da Note: Late entry for DOS 03/02/2019. Please also refer to the separate dictated note~ for this date of service dictated separately.~Patient seen individually. Discussed the patient with Nursing staff reviewed the chart.~Reviewed interim history and current functioning. Reviewed vital signs,~Labs/ Radiology~and current medications noted below. Continue current treatment with the changes noted in the dictated addendum note Assessment: Vital Signs: VS - Last 72 Hours, by Label Date Time Temp Pulse Resp B/P (MAP) Pulse Ox O2 Delivery O2 Flow Rate FiO2 03/03/19 05:44 97.5 75 18 102/69 (80) 98 03/02/19 16:58 98.1 89 16 106/65 (79) 97 Room Air 03/02/19 06:10 97.8 89 104/72 (83) 98 03/01/19 21:00 98.6 84 117/76 (90) 98 03/01/19 05:41 98.6 84 18 117/76 (90) 98 Room Air 02/28/19 16:16 97.2 87 19 104/66 (79) 99 Room Air Vital Signs Date Time Temp Pulse Resp B/P (MAP) Pulse Ox O2 Delivery O2 Flow Rate FiO2 03/03/19 05:44 97.5 75 18 102/69 (80) 98 03/02/19 16:58 Room Air I&O Intake and Output 03/03/19 07:00 Intake Total 1440 ml Balance 1440 ml Intake Oral 1440 ml # Voids 1 Labs: Laboratory Tests Test 03/03/19 07:25 Glucose (Fingerstick) 115 mg/dL (70-99) H Current Medications: Meds: Current Medications Acetaminophen (Tylenol) 650 mg PRN Q6HRS PRN PO PAIN / TEMP Last administered on 03/01/19at 08:20; Start 02/26/19 at 16:45 Multi-Ingredient Ointment (Analgesic [place]) 1 kory PRN QID PRN TP MUSCLE PAIN; Start 02/26/19 at 16:45 Al Hydroxide/Mg Hydroxide (Mylanta Plus Xs) 15 ml PRN AFTMEALHC PRN PO DYSPEPSIA; Start 02/26/19 at 16:45 Magnesium Hydroxide (Milk Of Magnesia) 2,400 mg PRN QHS PRN PO CONSTIPATION; Start 02/26/19 at 16:45 Cyanocobalamin (Vitamin B-12) 1,000 mcg WEEKLY IM ; Start 03/04/19 at 09:00; Stop 03/04/19 at 09:00; Status DC Cyanocobalamin (Vitamin B-12) 1,000 mcg DAILY PO Last administered on 03/03/19 07:25; Start 02/27/19 at 09:00 Aspirin (Children'S Aspirin) 81 mg [id number] PO Last administered on 03/03/19 07:25; Start 02/27/19 at 08:00 Atorvastatin Calcium (Lipitor) 40 mg QHS PO Last administered on 03/02/19 20:15 ; Start 02/26/19 at 21:00 Duloxetine HCl (Cymbalta) 90 mg DAILY PO Last administered on 03/03/19 07:24; Start 02/27/19 at 09:00 Metformin HCl (Glucophage) 1,000 mg BIDWMEALS PO Last administered on 03/03/19 07:25; Start 02/26/19 at 17:00 Linagliptin (Tradjenta) 5 mg DAILY PO Last administered on 03/03/19 07:25; Start 02/27/19 at 09:00 Cyanocobalamin (Vitamin B-12) 1,000 mcg [id number] IM ; Start 04/15/19 at 09:00 Rivastigmine (Exelon) 1 patch DAILY TD Last administered on 03/03/19 07:25; Start 02/28/19 at 09:00; Stop 03/04/19 at 23:50 Rivastigmine (Exelon) 1 patch DAILY TD ; Start 03/05/19 at 09:00 Quetiapine Fumarate (SEROquel) 25 mg QHS PO Last administered on 03/02/19 20:14 ; Start 02/27/19 at 21:00 Vitamin D (Vitamin D3) 50,000 unit WEEKLY PO Last administered on 02/27/19 19: 55; Start 02/27/19 at 18:30 Cetirizine HCl (ZyrTEC) 10 mg DAILY PO Last administered on 03/03/19 07:25; Start 03/01/19 at 09:00 Ondansetron HCl (Zofran Odt) 4 mg PRN Q4HRS PRN PO NAUSEA/VOMITING Last administered on 02/28/19at 23:51; Start 02/28/19 at 23:30 Bisacodyl (Dulcolax Supp) 10 mg PRN DAILY PRN [place] CONSTIPATION Last administered on 02/28/19at 23:51; Start 02/28/19 at 23:30 Cyanocobalamin (Vitamin B-12) 1,000 mcg [id number] IM ; Start 04/02/19 at 09:00 Active Scripts Active Reported Cyanocobalamin Injection (Cyanocobalamin (Vitamin B-12)) 1,000 Mcg/1 Ml Vial 1, 000 Mcg IJ [id number] Onglyza (Saxagliptin Hcl) 5 Mg Tablet 5 Mg PO DAILY Metformin Hcl 1,000 Mg Tablet 1,000 Mg PO BIDWMEALS Cymbalta (Duloxetine Hcl) 60 Mg Capsule.dr 90 Mg PO DAILY Atorvastatin Calcium 40 Mg Tablet 40 Mg PO QHS Aspirin 81 Mg Tab.chew 81 Mg PO DAILY Cyanocobalamin Injection (Cyanocobalamin (Vitamin B-12)) 1,000 Mcg/1 Ml Vial 1, 000 Mcg IJ WEEKLY Vitamin B-12 (Cyanocobalamin (Vitamin B-12)) 1,000 Mcg Tablet 1,000 Mcg PO DAILY I have reviewed the current psychotropics carefully including drug interactions. Risk benefit ratio favors no change other than as noted in my dictated progress note. 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
--- NOTE | 2019-03-03 10:17 | PN ---
DATE: 03/01/2019 PSYCHIATRIC PROGRESS NOTE This late entry 03/01/2019 covers elements not covered in my initial note. SUBJECTIVE: I met with the patient in the evening. The patient slept 7-1/2 hours previous night. He was somewhat confused, trying to put water in his medications. He had some constipation and episode of vomiting the day before. REVIEW OF SYSTEMS: No CV, , pulmonary, eye system symptoms on review. I met with him in his room. He was complaining of various issues on the unit and I addressed with him. MENTAL STATUS EXAM: Oriented to himself and situation. Speech has some latency, coherent, rapid at times. Abstraction fair, computation impaired, language function intact, attention span short. Mood and affect remain somewhat anxious, labile at times. LABORATORY DATA: Reviewed. IMPRESSION: Major neurocognitive disorder, Alzheimer, vascular with delusion, depression, behavioral disturbance; anxiety disorder, unspecified; impulse control disorder, unspecified. PLAN: Continue current psychotropics including Cymbalta, Seroquel; Exelon patch has been gradually increased, may consider adding Namenda as well. We will check for CT head if not done. We will do one here. BRANDY STEVENS MD DR: YECENIA/will JOB#: [id number] / [id number]
[2019-03-03 16:47] VITALS: BP 117/78
--- NOTE | 2019-03-03 18:24 | NUR ---
pt up for meals and out to groups. disorganized. more confused in eveing. kept forgeting his way back to day room after going to the bath room. Was irritable once in afternoon. told staff he heard someone banging on door and yelling for help. Pt became irritable when told there was no one yelling.has been compliant with meds and cares.
[2019-03-03] MEDS: QUEtiapine 25 MG TABLET. PO SCH (20:21)
[2019-03-03] MEDS: ATORVASTATIN CALCIUM 20 MG TABLET PO SCH (20:21)
--- NOTE | 2019-03-03 22:56 | PDOC ---
Exam Note: Da Note: Please also refer to the separate dictated note~for this date of service dictated separately.~Patient seen individually. Discussed the patient with Nursing staff reviewed the chart.~Reviewed interim history and current functioning. Reviewed vital signs,~Labs/ Radiology~and current medications noted below. Continue current treatment with the changes noted in the dictated addendum note Assessment: Vital Signs: Vital Signs Date Time Temp Pulse Resp B/P (MAP) Pulse Ox O2 Delivery O2 Flow Rate FiO2 03/03/19 16:47 98.0 85 18 117/78 (91) 98 03/02/19 16:58 Room Air I&O Intake and Output 03/03/19 07:00 Intake Total 1440 ml Balance 1440 ml Intake Oral 1440 ml # Voids 1 Labs: Laboratory Tests Test 03/03/19 07:25 Glucose (Fingerstick) 115 mg/dL (70-99) H Current Medications: Meds: Current Medications Acetaminophen (Tylenol) 650 mg PRN Q6HRS PRN PO PAIN / TEMP Last administered on 03/01/19at 08:20; Start 02/26/19 at 16:45 Multi-Ingredient Ointment (Analgesic [place]) 1 kory PRN QID PRN TP MUSCLE PAIN; Start 02/26/19 at 16:45 Al Hydroxide/Mg Hydroxide (Mylanta Plus Xs) 15 ml PRN AFTMEALHC PRN PO DYSPEPSIA; Start 02/26/19 at 16:45 Magnesium Hydroxide (Milk Of Magnesia) 2,400 mg PRN QHS PRN PO CONSTIPATION; Start 02/26/19 at 16:45 Cyanocobalamin (Vitamin B-12) 1,000 mcg WEEKLY IM ; Start 03/04/19 at 09:00; Stop 03/04/19 at 09:00; Status DC Cyanocobalamin (Vitamin B-12) 1,000 mcg DAILY PO Last administered on 03/03/19at 07:25; Start 02/27/19 at 09:00 Aspirin (Children'S Aspirin) 81 mg DAILYWBKFT PO Last administered on 03/03/19at 07:25; Start 02/27/19 at 08:00 Atorvastatin Calcium (Lipitor) 40 mg QHS PO Last administered on 03/03/19at 20:21 ; Start 02/26/19 at 21:00 Duloxetine HCl (Cymbalta) 90 mg DAILY PO Last administered on 03/03/19 07:24; Start 02/27/19 at 09:00 Metformin HCl (Glucophage) 1,000 mg BIDWMEALS PO Last administered on 03/03/19 17:00; Start 02/26/19 at 17:00 Linagliptin (Tradjenta) 5 mg DAILY PO Last administered on 03/03/19 07:25; Start 02/27/19 at 09:00 Cyanocobalamin (Vitamin B-12) 1,000 mcg [id number] IM ; Start 04/15/19 at 09:00 Rivastigmine (Exelon) 1 patch DAILY TD Last administered on 03/03/19 07:25; Start 02/28/19 at 09:00; Stop 03/04/19 at 23:50 Rivastigmine (Exelon) 1 patch DAILY TD ; Start 03/05/19 at 09:00 Quetiapine Fumarate (SEROquel) 25 mg QHS PO Last administered on 03/03/19 20:21 ; Start 02/27/19 at 21:00 Vitamin D (Vitamin D3) 50,000 unit WEEKLY PO Last administered on 02/27/19 19: 55; Start 02/27/19 at 18:30 Cetirizine HCl (ZyrTEC) 10 mg DAILY PO Last administered on 03/03/19 07:25; Start 03/01/19 at 09:00 Ondansetron HCl (Zofran Odt) 4 mg PRN Q4HRS PRN PO NAUSEA/VOMITING Last administered on 02/28/19 23:51; Start 02/28/19 at 23:30 Bisacodyl (Dulcolax Supp) 10 mg PRN DAILY PRN [place] CONSTIPATION Last administered on 02/28/19 23:51; Start 02/28/19 at 23:30 Cyanocobalamin (Vitamin B-12) 1,000 mcg [id number] IM ; Start 04/02/19 at 09:00 Active Scripts Active Reported Cyanocobalamin Injection (Cyanocobalamin (Vitamin B-12)) 1,000 Mcg/1 Ml Vial 1, 000 Mcg IJ [id number] Onglyza (Saxagliptin Hcl) 5 Mg Tablet 5 Mg PO DAILY Metformin Hcl 1,000 Mg Tablet 1,000 Mg PO BIDWMEALS Cymbalta (Duloxetine Hcl) 60 Mg Capsule.dr 90 Mg PO DAILY Atorvastatin Calcium 40 Mg Tablet 40 Mg PO QHS Aspirin 81 Mg Tab.chew 81 Mg PO DAILY Cyanocobalamin Injection (Cyanocobalamin (Vitamin B-12)) 1,000 Mcg/1 Ml Vial 1, 000 Mcg IJ WEEKLY Vitamin B-12 (Cyanocobalamin (Vitamin B-12)) 1,000 Mcg Tablet 1,000 Mcg PO DAILY I have reviewed the current psychotropics carefully including drug interactions. Risk benefit ratio favors no change other than as noted in my dictated progress note. 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
--- NOTE | 2019-03-03 23:30 | NUR ---
Nursing Note The patient was located in the day room for his assessment and medication pass. The patient was compliant with his medications and took them whole. The patient was appropriate during interactions with this nurse and peers. The patient is currently sleeping in his room.
[2019-03-04 05:37] VITALS: BP 99/67
[2019-03-04] MEDS: metFORMIN 500 MG TABLET PO SCH ×2 (08:30→17:33)
[2019-03-04] MEDS: DULoxetine HCL 30 MG CAPSULE.DR PO SCH (08:30)
[2019-03-04] MEDS: LINAGLIPTIN 5 MG TABLET PO SCH (08:31)
[2019-03-04] MEDS: CETIRIZINE HCL 10 MG TABLET PO SCH (08:31)
[2019-03-04] MEDS: ASPIRIN 81 MG TAB.CHEW PO SCH (08:31)
[2019-03-04] MEDS: RIVASTIGMINE 4.6MG PATCH. TD SCH (08:31)
[2019-03-04] MEDS: CYANOCOBALAMIN (VITAMIN B-12) 1,000 MCG TABLET. PO SCH (08:31)
[2019-03-04] MEDS ORDERED: CYANOCOBALAMIN (VITAMIN B-12) 1,000 MCG/ML VIAL IM SCH (09:00)
--- NOTE | 2019-03-04 09:30 | NUR ---
Nursing Note Pt located in his room at morning med pass. Pt calm, forgetful, compliant w/ medications taken whole. Pt was very talkative, and carrying a notebook taking notes about topics he wanted to remember details about.
--- NOTE | 2019-03-04 14:13 | NUR ---
REJI contacted pt sister and left a message wanting to clarify the discharge plans: home versus facility. REJI submitted pt insurance review; based on the notes submitted, REJI believes that pt will be discharging within the next few days.
[2019-03-04] MEDS ORDERED: POLYETHYLENE GLYCOL 3350 17 GM PACKET. PO PRN (15:30)
[2019-03-04 16:30] VITALS: BP 113/75
[2019-03-04] MEDS: QUEtiapine 25 MG TABLET. PO SCH (20:02)
[2019-03-04] MEDS: ATORVASTATIN CALCIUM 20 MG TABLET PO SCH (20:02)
[2019-03-04] MEDS: MEMANTINE 5 MG TABLET. PO SCH (20:04)
[2019-03-04] MEDS: DOCUSATE SODIUM 100 MG CAPSULE PO SCH (20:04)
--- NOTE | 2019-03-04 22:45 | PDOC ---
Exam Note: Da Note: Please also refer to the separate dictated note~for this date of service dictated separately.~Patient seen individually. Discussed the patient with Nursing staff reviewed the chart.~Reviewed interim history and current functioning. Reviewed vital signs,~Labs/ Radiology~and current medications noted below. Continue current treatment with the changes noted in the dictated addendum note Assessment: Vital Signs: Vital Signs Date Time Temp Pulse Resp B/P (MAP) Pulse Ox O2 Delivery O2 Flow Rate FiO2 03/04/19 16:30 97.7 91 18 113/75 (88) 100 03/02/19 16:58 Room Air I&O Intake and Output 03/04/19 06:59 Intake Total 1620 ml Balance 1620 ml Intake Oral 1620 ml # Voids 1 Labs: Laboratory Tests Test 03/04/19 07:34 Glucose (Fingerstick) 101 mg/dL (70-99) H Current Medications: Meds: Current Medications Acetaminophen (Tylenol) 650 mg PRN Q6HRS PRN PO PAIN / TEMP Last administered on 03/01/19at 08:20; Start 02/26/19 at 16:45 Multi-Ingredient Ointment (Analgesic [place]) 1 kory PRN QID PRN TP MUSCLE PAIN; Start 02/26/19 at 16:45 Al Hydroxide/Mg Hydroxide (Mylanta Plus Xs) 15 ml PRN AFTMEALHC PRN PO DYSPEPSIA; Start 02/26/19 at 16:45 Magnesium Hydroxide (Milk Of Magnesia) 2,400 mg PRN QHS PRN PO CONSTIPATION; Start 02/26/19 at 16:45 Cyanocobalamin (Vitamin B-12) 1,000 mcg WEEKLY IM ; Start 03/04/19 at 09:00; Stop 03/04/19 at 09:00; Status DC Cyanocobalamin (Vitamin B-12) 1,000 mcg DAILY PO Last administered on 03/04/19at 08:31; Start 02/27/19 at 09:00 Aspirin (Children'S Aspirin) 81 mg DAILYWBKFT PO Last administered on 03/04/19at 08:31; Start 02/27/19 at 08:00 Atorvastatin Calcium (Lipitor) 40 mg QHS PO Last administered on 03/04/19at 20:02 ; Start 02/26/19 at 21:00 Duloxetine HCl (Cymbalta) 90 mg DAILY PO Last administered on 03/04/19 08:30; Start 02/27/19 at 09:00; Stop 03/04/19 at 17:21; Status DC Metformin HCl (Glucophage) 1,000 mg BIDWMEALS PO Last administered on 03/04/19 17:33; Start 02/26/19 at 17:00 Linagliptin (Tradjenta) 5 mg DAILY PO Last administered on 03/04/19 08:31; Start 02/27/19 at 09:00 Cyanocobalamin (Vitamin B-12) 1,000 mcg [id number] IM ; Start 04/15/19 at 09:00 Rivastigmine (Exelon) 1 patch DAILY TD Last administered on 03/04/19 08:31; Start 02/28/19 at 09:00; Stop 03/04/19 at 23:50 Rivastigmine (Exelon) 1 patch DAILY TD ; Start 03/05/19 at 09:00 Quetiapine Fumarate (SEROquel) 25 mg QHS PO Last administered on 03/04/19 20:02 ; Start 02/27/19 at 21:00 Vitamin D (Vitamin D3) 50,000 unit WEEKLY PO Last administered on 02/27/19 19: 55; Start 02/27/19 at 18:30 Cetirizine HCl (ZyrTEC) 10 mg DAILY PO Last administered on 03/04/19 08:31; Start 03/01/19 at 09:00 Ondansetron HCl (Zofran Odt) 4 mg PRN Q4HRS PRN PO NAUSEA/VOMITING Last administered on 02/28/19 23:51; Start 02/28/19 at 23:30 Bisacodyl (Dulcolax Supp) 10 mg PRN DAILY PRN [place] CONSTIPATION Last administered on 02/28/19 23:51; Start 02/28/19 at 23:30 Cyanocobalamin (Vitamin B-12) 1,000 mcg [id number] IM ; Start 04/02/19 at 09:00 Cetirizine HCl (ZyrTEC) 10 mg DAILY PO ; Start 03/05/19 at 09:00 Fluticasone Propionate (Flonase) 2 spray DAILY NS ; Start 03/05/19 at 09:00 Docusate Sodium (Colace) 100 mg BID PO Last administered on 03/04/19at 20:04; Start 03/04/19 at 21:00 Polyethylene Glycol (miraLAX) 17 gm PRN DAILY PRN PO CONSTIPATION; Start at 15:30 Duloxetine HCl (Cymbalta) 60 mg DAILY PO ; Start 03/05/19 at 09:00 Memantine (Namenda) 5 mg BID PO Last administered on 03/04/19at 20:04; Start 03/04 at 21:00 Active Scripts Active Reported Cyanocobalamin Injection (Cyanocobalamin (Vitamin B-12)) 1,000 Mcg/1 Ml Vial 1, 000 Mcg IJ [id number] Onglyza (Saxagliptin Hcl) 5 Mg Tablet 5 Mg PO DAILY Metformin Hcl 1,000 Mg Tablet 1,000 Mg PO BIDWMEALS Cymbalta (Duloxetine Hcl) 60 Mg Capsule.dr 90 Mg PO DAILY Atorvastatin Calcium 40 Mg Tablet 40 Mg PO QHS Aspirin 81 Mg Tab.chew 81 Mg PO DAILY Cyanocobalamin Injection (Cyanocobalamin (Vitamin B-12)) 1,000 Mcg/1 Ml Vial 1, 000 Mcg IJ WEEKLY Vitamin B-12 (Cyanocobalamin (Vitamin B-12)) 1,000 Mcg Tablet 1,000 Mcg PO DAILY I have reviewed the current psychotropics carefully including drug interactions. Risk benefit ratio favors no change other than as noted in my dictated progress note. 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
[2019-03-05 06:06] VITALS: BP 106/68
[2019-03-05] MEDS: DOCUSATE SODIUM 100 MG CAPSULE PO SCH ×2 (07:44→19:14)
[2019-03-05] MEDS: LINAGLIPTIN 5 MG TABLET PO SCH (07:44)
[2019-03-05] MEDS: ASPIRIN 81 MG TAB.CHEW PO SCH (07:44)
[2019-03-05] MEDS: CYANOCOBALAMIN (VITAMIN B-12) 1,000 MCG TABLET. PO SCH (07:44)
[2019-03-05] MEDS: MEMANTINE 5 MG TABLET. PO SCH ×2 (07:44→19:14)
[2019-03-05] MEDS: CETIRIZINE HCL 10 MG TABLET PO SCH ×3 (07:44→07:47)
[2019-03-05] MEDS: metFORMIN 500 MG TABLET PO SCH ×2 (07:44→16:43)
[2019-03-05] MEDS: DULoxetine HCL 60 MG CAPSULE.DR PO SCH (07:46)
--- NOTE | 2019-03-05 08:25 | RAD ---
EXAM: Maxillofacial bone CT without contrast. HISTORY: Facial pressure. Headache. TECHNIQUE: Computed tomographic images of the maxillofacial bones were obtained without contrast. *One or more of the following individualized dose reduction techniques were utilized for this examination: 1. Automated exposure control. 2. Adjustment of the mA and/or kV according to patient size. 3. Use of iterative reconstruction technique. COMPARISON: None. FINDINGS: There is minimal bilateral maxillary sinus mucosal thickening. The ostiomeatal units are patent. There is minimal rightward nasal septal deviation. There is no sinus opacification or air-fluid level. There is no sinus wall erosion or sclerosis. The mastoid air cells are clear. The temporomandibular joints are intact. The orbits and visualized portions of the brain and calvarium are unremarkable. There are degenerative changes involving the proximal cervical spine, resulting in mild left foraminal stenosis at C2-C3 and mild right and moderate left foraminal stenosis at C3-C4. IMPRESSION: 1. Minimal bilateral maxillary sinus mucosal thickening. 2. No convincing acute sinusitis. Electronically signed by: Jennyfer Garber MD (03/05/2019 8:22 AM) [place] [id number]
[2019-03-05] MEDS: RIVASTIGMINE 9.5MG PATCH. TD SCH (08:48)
[2019-03-05] MEDS: FLUTICASONE 50MCG/NASAL SPRAY 16GM BOTTLE. NS SCH (08:48)
--- NOTE | 2019-03-05 09:29 | PN ---
DATE: 03/02/2019 PSYCHIATRIC PROGRESS NOTE This late entry 03/02/2019 covers elements not covered in my initial note. SUBJECTIVE: I met with the patient in the evening. Overall, the patient has been disorganized, but compliant, somewhat withdrawn. As I met with him, he had many questions on his diagnosis what he can do to help with his memory, prognosis, which were appropriate. REVIEW OF SYSTEMS: No CV, , pulmonary, eye system symptoms on review. MENTAL STATUS EXAM: Oriented to himself at times situation. Insight, judgment, recent memory is impaired. Language function intact. Attention span short. Mood and affect somewhat anxious. LABORATORY DATA: Reviewed. IMPRESSION: Major neurocognitive disorder, Alzheimer, vascular with delusion, depression, behavioral disturbance; anxiety disorder, unspecified; impulse control disorder, unspecified; obsessive compulsive disorder, psychotic disorder, unspecified. PLAN: Continue psychotropics from initial note including Cymbalta 90 mg a day, Exelon patch being increased to 9.5 mg a day, Seroquel 25 mg at bedtime, may need to be adjusted. MAN Karyn STEVENS MD DR: YECENIA/will JOB#: [id number] / [id number]
--- NOTE | 2019-03-05 09:31 | PN ---
DATE: 03/03/2019 PSYCHIATRIC PROGRESS NOTE This late entry 03/03/2019, covers elements not covered in my initial note. SUBJECTIVE: I met with the patient in the evening. The patient slept 7-1/4 hours previous night. He has been confused, anxious at times, suspicious, but no CV, , pulmonary, eye system symptoms on review. MENTAL STATUS EXAM: Oriented to himself and situation. Speech has some latency, coherent. Abstraction fair, computation impaired, language function intact. Attention span short, language function as noted is intact. LABORATORY DATA: Reviewed. IMPRESSION: Unchanged from initial note. PLAN: No change from initial note, but we may reduce the Cymbalta, consider starting Namenda. Maintain Seroquel for now and increase the Exelon patch gradually. MAN Karyn STEVENS MD DR: YECENIA/will JOB#: [id number] / [id number]
--- NOTE | 2019-03-05 13:34 | NUR ---
REJI received a letter stating that pt last covered day was 03/04/19. REJI attempted to contact pt sister again and left a voicemail asking her to contact REJI SHABNAM to make arrangements for pt to discharge today. REJI will continue to contact pt sister throughout the day.
--- NOTE | 2019-03-05 15:06 | NUR ---
SW returned call to Amarilys Pritchard at [facility] in [place], who expressed concerns about pt discharge plans. SW explained that she left a couple messges for pt sister to clarify pt plans, as he is unexpectedly having to discharge and none of those calls have been returned. Amarilys reports that pt sister/DPOA automatically called her. SW explained that pt may have to go home with an increase in services; however, [facility] reports that this is not an option as they have deemed pt unsafe to be at home. She states that the only place pt can go is to a facility. Pt has been assigned a payee and was just approved for disability; moreover, could not tell SW the amount that he was approved for. SW will follow up with a couple of facilities and get back to her. SW did note that pt would potentially be charged a bill as he is currently here without insurance coverage.
[2019-03-05] MEDS ORDERED: DOCU100C28 PO (15:34)
[2019-03-05] MEDS ORDERED: FLUT16SP21 NS (15:39)
[2019-03-05] MEDS ORDERED: MAG30ORA2 PO (15:45)
--- NOTE | 2019-03-05 15:45 | NUR ---
SW received a call from pt sister who reports that she took on a part-time gig and has to have her phone off when she works. She received my messages and reports that she cannot care for pt 19/06 if he were to come home. REJI informed pt sister/DPOA that SW had sent over a few referrals to see if they could take pt SHABNAM. Pt sister is concerned as to why insurance would refuse pt placement with [facility]. REJI went over concurrent reviews and how pt is not having behaviors, nor is he admitting to any SI, HI or hallucinations. His only behavior is confusion which will continue over time. Pt is compliant, interactive with staff and his peers. There is nothing showing that pt needs to stay on the unit. REJI informed pt sister that she has spoken to [facility] and has sent out referrals to facilities within the [facility] and will keep them up to date when a facility has been found.
[2019-03-05] MEDS ORDERED: MAGN2400 PO (15:47)
[2019-03-05] MEDS ORDERED: MEMA10TA PO (15:50)
[2019-03-05] MEDS ORDERED: ONDA4TAB12 PO (15:56)
[2019-03-05] MEDS ORDERED: POLY17PO5 PO (15:59)
[2019-03-05] MEDS ORDERED: METH29OI TP (16:09)
[2019-03-05] MEDS ORDERED: QUET25TA5 PO (16:11)
[2019-03-05] MEDS ORDERED: RIVA1PAT23 TD (16:12)
[2019-03-05 16:15] VITALS: BP 125/81
--- NOTE | 2019-03-05 16:38 | NUR ---
Referrals sent: [facility] -- considering [facility] -- no male beds available [facility] -- no male beds available [facility] -- considering [facility] -- considering [facility] -- considering
[2019-03-05] MEDS: ATORVASTATIN CALCIUM 20 MG TABLET PO SCH (19:14)
[2019-03-05] MEDS: QUEtiapine 25 MG TABLET. PO SCH (19:14)
--- NOTE | 2019-03-05 19:22 | NUR ---
Pt has been calm, cooperative, and compliant throughout shift. Pt was seen bear-crawling in hallway and was asked why he was doing so. Pt stated "my knee gave out and I can't walk." Pt was encouraged to use the handrail to stand himself upright; pt obliged and continued to walk to dining room unaffected. Pt told this nurse that another pt was telling him she loved him and wanted to him. This pt also had another pt tell him the same thing for her. Pt is very uncomfortable with this situation and was instructed to tell staff if it happens again. Pt verbalized understanding.
--- NOTE | 2019-03-05 22:34 | PDOC ---
Exam Note: Da Note: Please also refer to the separate dictated note~for this date of service dictated separately.~Patient seen individually. Discussed the patient with Nursing staff reviewed the chart.~Reviewed interim history and current functioning. Reviewed vital signs,~Labs/ Radiology~and current medications noted below. Continue current treatment with the changes noted in the dictated addendum note Assessment: Vital Signs: Vital Signs Date Time Temp Pulse Resp B/P (MAP) Pulse Ox O2 Delivery O2 Flow Rate FiO2 03/05/19 16:15 98.0 94 22 125/81 (96) 97 03/02/19 16:58 Room Air I&O Intake and Output 03/05/19 06:59 Intake Total 1200 ml Balance 1200 ml Intake Oral 1200 ml Labs: Laboratory Tests Test 03/05/19 07:39 Glucose (Fingerstick) 95 mg/dL (70-99) Current Medications: Meds: Current Medications Acetaminophen (Tylenol) 650 mg PRN Q6HRS PRN PO PAIN / TEMP Last administered on 03/01/19at 08:20; Start 02/26/19 at 16:45 Multi-Ingredient Ointment (Analgesic [place]) 1 ashlyn PRN QID PRN TP MUSCLE PAIN; Start 02/26/19 at 16:45 Al Hydroxide/Mg Hydroxide (Mylanta Plus Xs) 15 ml PRN AFTMEALHC PRN PO DYSPEPSIA; Start 02/26/19 at 16:45 Magnesium Hydroxide (Milk Of Magnesia) 2,400 mg PRN QHS PRN PO CONSTIPATION; Start 02/26/19 at 16:45 Cyanocobalamin (Vitamin B-12) 1,000 mcg WEEKLY IM ; Start 03/04/19 at 09:00; Stop 03/04/19 at 09:00; Status DC Cyanocobalamin (Vitamin B-12) 1,000 mcg DAILY PO Last administered on 03/05/19at 07:44; Start 02/27/19 at 09:00 Aspirin (Children'S Aspirin) 81 mg DAILYWBKFT PO Last administered on 03/05/19at 07:44; Start 02/27/19 at 08:00 Atorvastatin Calcium (Lipitor) 40 mg QHS PO Last administered on 03/05/19at 19:14 ; Start 02/26/19 at 21:00 Duloxetine HCl (Cymbalta) 90 mg DAILY PO Last administered on 03/04/19 08:30; Start 02/27/19 at 09:00; Stop 03/04/19 at 17:21; Status DC Metformin HCl (Glucophage) 1,000 mg BIDWMEALS PO Last administered on 03/05/19 16:43; Start 02/26/19 at 17:00 Linagliptin (Tradjenta) 5 mg DAILY PO Last administered on 03/05/19 07:44; Start 02/27/19 at 09:00 Cyanocobalamin (Vitamin B-12) 1,000 mcg [id number] IM ; Start 04/15/19 at 09:00 Rivastigmine (Exelon) 1 patch DAILY TD Last administered on 03/04/19 08:31; Start 02/28/19 at 09:00; Stop 03/04/19 at 23:50; Status DC Rivastigmine (Exelon) 1 patch DAILY TD Last administered on 03/05/19 08:48; Start 03/05/19 at 09:00 Quetiapine Fumarate (SEROquel) 25 mg QHS PO Last administered on 03/05/19 19:14 ; Start 02/27/19 at 21:00 Vitamin D (Vitamin D3) 50,000 unit WEEKLY PO Last administered on 02/27/19 19: 55; Start 02/27/19 at 18:30 Cetirizine HCl (ZyrTEC) 10 mg DAILY PO Last administered on 03/04/19 08:31; Start 03/01/19 at 09:00 Ondansetron HCl (Zofran Odt) 4 mg PRN Q4HRS PRN PO NAUSEA/VOMITING Last administered on 02/28/19 23:51; Start 02/28/19 at 23:30 Bisacodyl (Dulcolax Supp) 10 mg PRN DAILY PRN [place] CONSTIPATION Last administered on 02/28/19 23:51; Start 02/28/19 at 23:30 Cyanocobalamin (Vitamin B-12) 1,000 mcg [id number] IM ; Start 04/02/19 at 09:00 Cetirizine HCl (ZyrTEC) 10 mg DAILY PO Last administered on 03/05/19 07:46; Start 03/05/19 at 09:00 Fluticasone Propionate (Flonase) 2 spray DAILY NS Last administered on at 08:48; Start 03/05/19 at 09:00 Docusate Sodium (Colace) 100 mg BID PO Last administered on 03/05/19at 19:14; Start 03/04/19 at 21:00 Polyethylene Glycol (miraLAX) 17 gm PRN DAILY PRN PO CONSTIPATION; Start at 15:30 Duloxetine HCl (Cymbalta) 60 mg DAILY PO ; Start 03/05/19 at 09:00 Memantine (Namenda) 5 mg BID PO Last administered on 03/05/19at 19:14; Start 03/04 at 21:00 Active Scripts Active Reported EXELON 9.5mg/24hr (Rivastigmine) 1 Each Patch.td24 1 Patch TD DAILY Seroquel (Quetiapine Fumarate) 25 Mg Tablet 25 Mg PO QHS Analgesic [place] (Methyl Salicylate/Menthol) 28 Gm Oint...g. 1 Ashlyn TP QID Miralax (Polyethylene Glycol 3350) 17 Gm Powd.pack 17 Gm PO DAILY Ondansetron Odt (Ondansetron) 4 Mg Tab.rapdis 4 Mg PO Q4HRS Namenda (Memantine Hcl) 10 Mg Tablet 5 Mg PO BID Milk Of Magnesia (Magnesium Hydroxide) 2,400 Mg/10 Ml Oral.susp 2,400 Mg PO QHS Mag-Al Plus Xs Suspension (Mag Hydrox/Al Hydrox/Simeth) 30 Ml Oral.susp 15 Ml PO AFTMEALHC Fluticasone Propionate Nasal [place] (Fluticasone Propionate) 16 Gm [place].susp 2 Spr NS DAILY Docusate Sodium 100 Mg Capsule 100 Mg PO BID PRN Cyanocobalamin Injection (Cyanocobalamin (Vitamin B-12)) 1,000 Mcg/1 Ml Vial 1, 000 Mcg IJ [id number] Onglyza (Saxagliptin Hcl) 5 Mg Tablet 5 Mg PO DAILY Metformin Hcl 1,000 Mg Tablet 1,000 Mg PO BIDWMEALS Cymbalta (Duloxetine Hcl) 60 Mg Capsule.dr 90 Mg PO DAILY Atorvastatin Calcium 40 Mg Tablet 40 Mg PO QHS Aspirin 81 Mg Tab.chew 81 Mg PO DAILY Cyanocobalamin Injection (Cyanocobalamin (Vitamin B-12)) 1,000 Mcg/1 Ml Vial 1, 000 Mcg IJ WEEKLY Vitamin B-12 (Cyanocobalamin (Vitamin B-12)) 1,000 Mcg Tablet 1,000 Mcg PO DAILY I have reviewed the current psychotropics carefully including drug interactions. Risk benefit ratio favors no change other than as noted in my dictated progress note. 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
--- NOTE | 2019-03-05 22:51 | NUR ---
Nursing Note Pt resting in bed during time of assessment and medications. Pt calm, appropriate and compliant with medications. Pt encouraged to get up for snack and not withdrawto his room. Pt did go down to day room for snack and was interacting with peers.
--- NOTE | 2019-03-05 23:09 | PN ---
DATE: 03/04/2019 This late entry for 03/04/2019 covers elements not covered in my initial note. SUBJECTIVE: I met with the patient in the evening. The patient has been calm, talkative, somewhat forgetful, confused how to take his medications. He keeps a notebook to try and remember things. REVIEW OF SYSTEMS: No CV, , pulmonary, eye system symptoms on review. MENTAL STATUS EXAM: I met with him in his room. He is lying in bed, did sit up. Speech has some latency, coherent. Abstraction fair, computation impaired, language function intact. Short-term memory is impaired. No suicidal or homicidal ideation. LABORATORY DATA: Reviewed. IMPRESSION: Major neurocognitive disorder, Alzheimer, vascular with delusion, depression, behavioral disturbance. PLAN: Reduce Cymbalta from 90 mg a day to 60 mg a day and start Namenda 5 mg b.i.d., gradually increase Exelon patch. Continue Seroquel 25 mg at bedtime. BRANDY STEVENS MD DR: YECENIA/will JOB#: [id number] / [id number]
[2019-03-06] MEDS ORDERED: ACET325T9 PO (00:37)
[2019-03-06] MEDS ORDERED: BISA10SU2 RC (00:38)
[2019-03-06] MEDS ORDERED: CETI10TA16 PO (00:40)
[2019-03-06] MEDS ORDERED: CHOL500021 PO (00:41)
[2019-03-06 06:00] VITALS: BP 100/62
[2019-03-06] MEDS: DOCUSATE SODIUM 100 MG CAPSULE PO SCH (07:51)
[2019-03-06] MEDS: RIVASTIGMINE 9.5MG PATCH. TD SCH (07:51)
[2019-03-06] MEDS: CYANOCOBALAMIN (VITAMIN B-12) 1,000 MCG TABLET. PO SCH (07:51)
[2019-03-06] MEDS: CETIRIZINE HCL 10 MG TABLET PO SCH ×2 (07:51→07:53)
[2019-03-06] MEDS: LINAGLIPTIN 5 MG TABLET PO SCH (07:52)
[2019-03-06] MEDS: metFORMIN 500 MG TABLET PO SCH (07:52)
[2019-03-06] MEDS: ASPIRIN 81 MG TAB.CHEW PO SCH (07:52)
[2019-03-06] MEDS: MEMANTINE 5 MG TABLET. PO SCH (07:52)
[2019-03-06] MEDS: CHOLECALCIFEROL (VITAMIN D3) 50,000 UNIT CAPSULE PO SCH (07:52)
[2019-03-06] MEDS: DULoxetine HCL 60 MG CAPSULE.DR PO SCH (07:52)
[2019-03-06] MEDS: FLUTICASONE 50MCG/NASAL SPRAY 16GM BOTTLE. NS SCH (07:53)
--- NOTE | 2019-03-06 11:05 | NUR ---
Pt has been calm, cooperative, compliant, and pleasant. Pt was drowsy after breakfast and laid down for a short nap. Pt is sociable.
--- NOTE | 2019-03-06 12:58 | NUR ---
[facility] Social Work Discharge Planning Form Patient Name LORENZO LOWERY Admit Date: 02/26/19 DISCHARGE PLAN Discharge Destination: [facility] Care Assessment:Completed; attached with discharge papers Level II Assessment: N/A Transportation: [facility] will be picking pt up this afternoon Special Instructions/Notes: Please fax over all discharge forms and medication list to pt facility listed below. DISCHARGE TO FACILITY Facility: [facility] ; preferred FAX Address: [address] [place] [address] [address], [place] [address] Contact Name: Jimmie Serrano; Physical Therapy Resident: Contact Name: Ask for the nurse caring for pt upon admission: PCP: Tejinder Deng
--- NOTE | 2019-03-06 13:15 | NUR ---
REJI left a message for pt sister, Lissy to inform her that pt was discharged to [facility]. REJI also left on the message that pt was denied by by [facility] which was her request. Pt was accepted to [facility] but they did not wish to have him admitted until tomorrow. If pt sister has any questions, she can call up here or call and speak to nursing at [facility].
--- NOTE | 2019-03-06 13:58 | NUR ---
Transition Record was faxed to follow-up provider with the following elements: Reason for admission, procedures, tests, principal diagnosis, pending studies, patient instructions, 19/06 contact information for unit, phone number to obtain pending test results, plan for follow-up care, physician follow-up, advanced directive information, and medication list with dose, duration and instructions. This information was included in the following documents: History and physical, lab results, study results, progress notes, social work planning form, DC instruction form, patient visit summary, and medication reconciliation form. Date & time record faxed: 03/06/19 @ 1400 Record faxed to: Sage Quinn, Record discussed with/ report given to: COLIN Garcia @ [phone]
--- NOTE | 2019-03-06 22:43 | PDOC ---
Exam Note: Da Note: Please also refer to the separate dictated note~for this date of service dictated separately.~Patient seen individually. Discussed the patient with Nursing staff reviewed the chart.~Reviewed interim history and current functioning. Reviewed vital signs,~Labs/ Radiology~and current medications noted below. Continue current treatment with the changes noted in the dictated addendum note Assessment: Vital Signs: Vital Signs Date Time Temp Pulse Resp B/P (MAP) Pulse Ox O2 Delivery O2 Flow Rate FiO2 03/06/19 06:00 97.2 72 16 100/62 (75) 98 03/02/19 16:58 Room Air I&O Intake and Output 03/06/19 07:00 Intake Total 1080 ml Balance 1080 ml Intake Oral 1080 ml Labs: Laboratory Tests Test 03/06/19 07:31 Glucose (Fingerstick) 94 mg/dL (70-99) Current Medications: Meds: Current Medications Acetaminophen (Tylenol) 650 mg PRN Q6HRS PRN PO PAIN / TEMP Last administered on 03/01/19at 08:20; Start 02/26/19 at 16:45; Stop 03/06/19 at 14:13; Status DC Multi-Ingredient Ointment (Analgesic [place]) 1 ashlyn PRN QID PRN TP MUSCLE PAIN; Start 02/26/19 at 16:45; Stop 03/06/19 at 14:13; Status DC Al Hydroxide/Mg Hydroxide (Mylanta Plus Xs) 15 ml PRN AFTMEALHC PRN PO DYSPEPSIA; Start 02/26/19 at 16:45; Stop 03/06/19 at 14:13; Status DC Magnesium Hydroxide (Milk Of Magnesia) 2,400 mg PRN QHS PRN PO CONSTIPATION; Start 02/26/19 at 16:45; Stop 03/06/19 at 14:13; Status DC Cyanocobalamin (Vitamin B-12) 1,000 mcg WEEKLY IM ; Start 03/04/19 at 09:00; Stop 03/04/19 at 09:00; Status DC Cyanocobalamin (Vitamin B-12) 1,000 mcg DAILY PO Last administered on at 07:51; Start 02/27/19 at 09:00; Stop 03/06/19 at 14:13; Status DC Aspirin (Children'S Aspirin) 81 mg DAILYWBKFT PO Last administered on 07:52; Start 02/27/19 at 08:00; Stop 03/06/19 at 14:13; Status DC Atorvastatin Calcium (Lipitor) 40 mg QHS PO Last administered on 03/05/19 19:14 ; Start 02/26/19 at 21:00; Stop 03/06/19 at 14:13; Status DC Duloxetine HCl (Cymbalta) 90 mg DAILY PO Last administered on 03/04/19 08:30; Start 02/27/19 at 09:00; Stop 03/04/19 at 17:21; Status DC Metformin HCl (Glucophage) 1,000 mg BIDWMEALS PO Last administered on 07:52; Start 02/26/19 at 17:00; Stop 03/06/19 at 14:13; Status DC Linagliptin (Tradjenta) 5 mg DAILY PO Last administered on 03/06/19 07:52; Start 02/27/19 at 09:00; Stop 03/06/19 at 14:13; Status DC Cyanocobalamin (Vitamin B-12) 1,000 mcg [id number] IM ; Start 04/15/19 at 09:00; Stop 04/15/19 at 09:00; Status DC Rivastigmine (Exelon) 1 patch DAILY TD Last administered on 03/04/19 08:31; Start 02/28/19 at 09:00; Stop 03/04/19 at 23:50; Status DC Rivastigmine (Exelon) 1 patch DAILY TD Last administered on 03/06/19 07:51; Start 03/05/19 at 09:00; Stop 03/06/19 at 14:13; Status DC Quetiapine Fumarate (SEROquel) 25 mg QHS PO Last administered on 03/05/19 19:14 ; Start 02/27/19 at 21:00; Stop 03/06/19 at 14:13; Status DC Vitamin D (Vitamin D3) 50,000 unit WEEKLY PO Last administered on 03/06/19 07: 52; Start 02/27/19 at 18:30; Stop 03/06/19 at 14:13; Status DC Cetirizine HCl (ZyrTEC) 10 mg DAILY PO Last administered on 03/06/19 07:51; Start 03/01/19 at 09:00; Stop 03/06/19 at 14:13; Status DC Ondansetron HCl (Zofran Odt) 4 mg PRN Q4HRS PRN PO NAUSEA/VOMITING Last administered on 02/28/19 23:51; Start 02/28/19 at 23:30; Stop 03/06/19 at 14:13; Status DC Bisacodyl (Dulcolax Supp) 10 mg PRN DAILY PRN [place] CONSTIPATION Last administered on 02/28/19 23:51; Start 02/28/19 at 23:30; Stop 03/06/19 at 14:13; Status DC Cyanocobalamin (Vitamin B-12) 1,000 mcg [id number] IM ; Start 04/02/19 at 09:00; Stop 04/02/19 at 09:00; Status DC Cetirizine HCl (ZyrTEC) 10 mg DAILY PO Last administered on 03/05/19 07:46; Start 03/05/19 at 09:00; Stop 03/06/19 at 14:13; Status DC Fluticasone Propionate (Flonase) 2 spray DAILY NS Last administered on 07:53; Start 03/05/19 at 09:00; Stop 03/06/19 at 14:13; Status DC Docusate Sodium (Colace) 100 mg BID PO Last administered on 03/06/19 07:51; Start 03/04/19 at 21:00; Stop 03/06/19 at 14:13; Status DC Polyethylene Glycol (miraLAX) 17 gm PRN DAILY PRN PO CONSTIPATION; Start at 15:30; Stop 03/06/19 at 14:13; Status DC Duloxetine HCl (Cymbalta) 60 mg DAILY PO Last administered on 03/06/19 07:52; Start 03/05/19 at 09:00; Stop 03/06/19 at 14:13; Status DC Memantine (Namenda) 5 mg BID PO Last administered on 03/06/19 07:52; Start 03/04/19 at 21:00; Stop 03/06/19 at 14:13; Status DC Active Scripts Active Reported D3-50 (Cholecalciferol (Vitamin D3)) 50,000 Unit Capsule 50,000 Unit PO WEEKLY Cetirizine Hcl 10 Mg Tablet 10 Mg PO DAILY Bisacodyl 10 Mg Supp.rect 10 Mg RC PRN DAILY PRN Tylenol (Acetaminophen) 325 Mg Tablet 650 Mg PO PRN Q6HRS EXELON 9.5mg/24hr (Rivastigmine) 1 Each Patch.td24 1 Patch TD DAILY Seroquel (Quetiapine Fumarate) 25 Mg Tablet 25 Mg PO QHS Analgesic [place] (Methyl Salicylate/Menthol) 28 Gm Oint...g. 1 [place] TP PRN QID PRN Miralax (Polyethylene Glycol 3350) 17 Gm Powd.pack 17 Gm PO PRN DAILY PRN Ondansetron Odt (Ondansetron) 4 Mg Tab.rapdis 4 Mg PO PRN Q4HRS PRN Dissolve on tongue Namenda (Memantine Hcl) 10 Mg Tablet 5 Mg PO BID Milk Of Magnesia (Magnesium Hydroxide) 2,400 Mg/10 Ml Oral.susp 2,400 Mg PO PRN QHS PRN Mag-Al Plus Xs Suspension (Mag Hydrox/Al Hydrox/Simeth) 30 Ml Oral.susp 15 Ml PO AFTMEALHC Fluticasone Propionate Nasal [place] (Fluticasone Propionate) 16 Gm [place].susp 2 Spr NS DAILY Use in each nostril Docusate Sodium 100 Mg Capsule 100 Mg PO BID Cyanocobalamin Injection (Cyanocobalamin (Vitamin B-12)) 1,000 Mcg/1 Ml Vial 1, 000 Mcg IJ [id number] Onglyza (Saxagliptin Hcl) 5 Mg Tablet 5 Mg PO DAILY Metformin Hcl 1,000 Mg Tablet 1,000 Mg PO BIDWMEALS Cymbalta (Duloxetine Hcl) 60 Mg Capsule.dr 60 Mg PO DAILY Atorvastatin Calcium 40 Mg Tablet 40 Mg PO QHS Aspirin 81 Mg Tab.chew 81 Mg PO DAILY Cyanocobalamin Injection (Cyanocobalamin (Vitamin B-12)) 1,000 Mcg/1 Ml Vial 1, 000 Mcg IJ WEEKLY Vitamin B-12 (Cyanocobalamin (Vitamin B-12)) 1,000 Mcg Tablet 1,000 Mcg PO DAILY I have reviewed the current psychotropics carefully including drug interactions. Risk benefit ratio favors no change other than as noted in my dictated progress note. 

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
--- NOTE | 2019-03-07 19:54 | PN ---
DATE: 03/05/2019 PSYCHIATRIC PROGRESS NOTE This late entry on 03/05/2019 covers elements not covered in my initial note. SUBJECTIVE: I met with the patient at some length in his room in the evening. The patient slept 6-1/2 hours previous night, but he is somewhat disorganized and per nursing report was "bear" crawling on the floor, "acting as if his knee had given out." He did redirect and there was no knee problems That the nursing staff noticed. I addressed this with him. REVIEW OF SYSTEMS: No CV, , pulmonary, eye system symptoms on review. MENTAL STATUS EXAM: Oriented to himself and situation. Speech has some latency, often responses are monosyllabic. Abstraction fair, computation impaired, language function intact. Short term memory is impaired. No suicidal or homicidal ideation. No overt paranoia and no active hallucinations. LABORATORY DATA: Reviewed. IMPRESSION: Major neurocognitive disorder, Alzheimer's, vascular with delusion, depression; anxiety disorder, unspecified; impulse control disorder, unspecified. PLAN: No change from initial note with possible transition to a lower level of care on 03/06/2019. MAN Karyn STEVENS MD DR: YECENIA/will JOB#: [id number] / [id number]
--- NOTE | 2019-03-07 22:36 | PN ---
DATE: 03/05/2019 The note that I just dictated on the patient just now under dictation number [id number] was for 03/05/2019. This note clarifies this. MAN Karyn STEVENS MD DR: Gustabo JOB#: [id number] / [id number]
[2019-04-02] MEDS ORDERED: CYANOCOBALAMIN (VITAMIN B-12) 1,000 MCG/ML VIAL IM SCH (09:00)
[2019-04-15] MEDS ORDERED: CYANOCOBALAMIN (VITAMIN B-12) 1,000 MCG/ML VIAL IM SCH (09:00)
== END 2019-03-06 13:15 | DRG 57 ==
LOC: GEROPSY 16:04
PROVIDERS: ADMIT Psychiatry & Neurology Psychiatry; ATTEND Psychiatry & Neurology Psychiatry
DX: G30.9 Alzheimer's disease, unspecified (principal); F10.27 Alcohol dependence with alcohol-induced persisting dementia; F41.9 Anxiety disorder, unspecified; F01.50 Vascular dementia, unspecified severity, without behavioral disturbance, psychotic disturbance, mood disturbance, and anxiety; F02.80 Dementia in other diseases classified elsewhere, unspecified severity, without behavioral disturbance, psychotic disturbance, mood disturbance, and anxiety; E11.9 Type 2 diabetes mellitus without complications; R31.9 Hematuria, unspecified; F32.9 Major depressive disorder, single episode, unspecified; F63.9 Impulse disorder, unspecified; E55.9 Vitamin D deficiency, unspecified; F42.9 Obsessive-compulsive disorder, unspecified; E78.5 Hyperlipidemia, unspecified; Z86.718 Personal history of other venous thrombosis and embolism; Z79.899 Other long term (current) drug therapy; Z87.891 Personal history of nicotine dependence
CPT/HCPCS: 36415; 70450; 70486; 80053; 80061; 81001; 82306; 82947; 83036; 83540; 83550; 83735; 84436; 84443; 84480; 85025; 86592; Q0162

== ENCOUNTER 2021-03-12 15:27 | Inpatient (IN) | payer MEDICARE, OTHER ==
[~2021-03-12] VITALS: Ht 185.4 cm; Wt 73.5 kg
[~2021-03-12 15:27] MED LIST: ACET325T9 PO; ASPI-630 PO; ATOR40TA59 PO; BISA10SU4 RC; CETI10TA16 PO; CHOL500021 PO; CYAN-25 PO; CYAN10002 IJ; DOCU100C28 PO; DULO60CA6 PO; FLUT16SP21 NS; MAG30ORA2 PO; MAGN24003 PO; MEMA10TA PO; METF10007 PO; METH28OI2 TP; ONDA4TAB12 PO; POLY17PO5 PO; QUET25TA5 PO; RIVA1PAT23 TD; SAXA5TAB PO
[2021-03-12 18:10] VITALS: BP 134/79
[2021-03-12] MEDS ORDERED: MAG HYDROX/AL HYDROX/SIMETH 30 ML ORAL.SUSP PO PRN (18:15)
[2021-03-12] MEDS ORDERED: MAGNESIUM HYDROXIDE 2,400 MG/30 ML ORAL.SUSP. PO PRN (18:15)
[2021-03-12] MEDS ORDERED: METHYL SALICYLATE/MENTHOL TOPICAL OINTMENT 57GM TUBE. TP PRN (18:15)
[2021-03-12] MEDS ORDERED: ACETAMINOPHEN 325 MG TABLET PO PRN (18:15)
[2021-03-12] MEDS ORDERED: EXELON 13.3 MG TOP (18:30)
[2021-03-12] MEDS ORDERED: MIRT-37 PO (18:30)
[2021-03-12] MEDS ORDERED: GABA-586 PO (18:30)
[2021-03-12] MEDS ORDERED: SITA50TA PO (18:30)
[2021-03-12] MEDS ORDERED: VENL150T PO (18:30)
[2021-03-12] MEDS: GABAPENTIN 300 MG CAPSULE. PO SCH (20:40)
[2021-03-12] MEDS: MEMANTINE 10 MG TABLET. PO SCH (20:40)
--- NOTE | 2021-03-12 22:10 | PDOC ---
Exam Note: Da Note: Please also refer to the separate dictated note~for this date of service dictated separately.~Patient seen individually. Discussed the patient with Nursing staff reviewed the chart.~Reviewed interim history and current functioning. Reviewed vital signs,~Labs/ Radiology~and current medications noted below. Continue current treatment with the changes noted in the dictated addendum note Assessment: Vital Signs/I&O: Vital Signs Date Time Temp Pulse Resp B/P (MAP) Pulse Ox O2 Delivery O2 Flow Rate FiO2 03/12/21 18:10 97.2 97 22 134/79 (97) 96 Room Air Labs: Laboratory Tests Test 03/12/21 19:20 Glucose (Fingerstick) 184 mg/dL (70-99) H Current Medications: Meds: Current Medications Medications (Trade) Dose Ordered Sig/Cierra Route PRN Reason Start Time Stop Time Status Last Admin Dose Admin Gabapentin (Neurontin) 300 mg BID PO 03/12/21 21:00 03/12/21 20:40 Memantine (Namenda) 10 mg BID PO 03/12/21 21:00 03/12/21 20:40 I have reviewed the current psychotropics carefully including drug interactions. Risk benefit ratio favors no change other than as noted in my dictated progress note. Diagnosis: Problems: (1) Dementia with behavioral disturbance (2) Anxiety disorder (3) Dementia, vascular, with delusions (4) Dementia, vascular, with depression (5) Dementia in Alzheimer's disease with delusions (6) Dementia in Alzheimer's disease with depression (7) Impulse control disorder BRANDY STEVENS MD Mar 12, 2021 22:10
[2021-03-13 06:31] VITALS: BP 143/85
[2021-03-13 07:26] LABS: BASO % 0 % (0-3); EOS # 0.2 x10^3/uL (0.0-0.7); EOS % 2 % (0-3); HEMOGLOBIN 15.7 g/dL (13.0-17.5); LYMPH # 1.8 x10^3/uL (1.0-4.8); LYMPH % 21 % (24-48); MEAN CORPUSCULAR HEMOGLOBIN 29 pg (25-35); MEAN CORPUSCULAR HGB CONC 33 g/dL (31-37); MEAN CORPUSCULAR VOLUME 88 fL (79-100); MONO # 0.8 x10^3/uL (0.0-1.1); MONO % 9 % (0-9); NEUT # 5.9 x10^3uL (1.8-7.7); NEUT % 68 % (31-73); PLATELET COUNT 165 x10^3/uL (140-400); RED BLOOD COUNT 5.43 x10^6/uL (4.30-5.70); RED CELL DISTRIBUTION WIDTH 13.9 % (11.5-14.5); WHITE BLOOD COUNT 8.7 x10^3/uL (4.0-11.0)
[2021-03-13 07:52] LABS: ALBUMIN 3.5 g/dL (3.4-5.0); ALBUMIN/GLOBULIN RATIO 0.8 (1.0-1.7); CALCIUM 9.4 mg/dL (8.5-10.1); GFR 75.5; MAGNESIUM 1.8 mg/dL (1.8-2.4); POTASSIUM 3.6 mmol/L (3.5-5.1); TOTAL BILIRUBIN 0.6 mg/dL (0.2-1.0); TOTAL PROTEIN 7.7 g/dL (6.4-8.2)
[2021-03-13] MEDS: MEMANTINE 10 MG TABLET. PO SCH ×2 (08:18→19:47)
[2021-03-13] MEDS: GABAPENTIN 300 MG CAPSULE. PO SCH ×2 (08:18→19:47)
[2021-03-13] MEDS: VENLAFAXINE 50 MG TABLET. PO SCH ×3 (08:19→19:48)
[2021-03-13] MEDS: metFORMIN 500 MG TABLET PO SCH ×2 (08:20→17:27)
[2021-03-13] MEDS: MIRTAZAPINE 7.5 MG TABLET. PO SCH (08:20)
[2021-03-13] MEDS: DOCUSATE SODIUM 100 MG CAPSULE PO SCH ×2 (08:20→19:47)
[2021-03-13] MEDS: RIVASTIGMINE 13.3MG PATCH. TD SCH (08:25)
[2021-03-13 10:47] LABS: THYROID STIM HORMONE (TSH) 2.078 uIU/mL (0.358-3.740)
[2021-03-13 16:14] VITALS: BP 124/79
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
--- NOTE | 2021-03-13 21:05 | HP ---
ADMIT DATE: 03/12/2021 PSYCHIATRIC ADMISSION HISTORY/EVALUATION This late entry for date of service 03/12/2021 and covers the elements not covered in my initial note of 03/12/2021. IDENTIFYING DATA: The patient is a 65-year-old male referred to us from [facility] by his primary care physician/psychiatrist on account of worsening confusion within the context of his major neurocognitive disorder, vascular with delusion, depression, behavioral disturbance; anxiety disorder, unspecified; impulse control disorder, unspecified. Behaviors were significantly worsening out of control. He was urinating and defecating on the floor. He was wandering and attempting to elope. He was repeatedly pulling the fire alarm. He was hitting staff on the head and face. He was agitated, pacing, believes he was being stalked. He is paranoid, suspicious, more confused, worse with sundowning, had failed outpatient psychiatric interventions resulting in this referral. I met with the patient in the evening of 03/12/2021 for this evaluation. CHIEF COMPLAINT: "No." HISTORY OF PRESENT ILLNESS: The patient has a history of the above diagnosis with worsening dementia, vascular type. He has been psychotic in addition to above, having sleep and appetite changes. No active suicidal or homicidal ideation. No clear history of bipolar disorder. PAST PSYCHIATRIC HISTORY: As above. MEDICAL HISTORY: Hyperlipidemia, type 2 diabetes mellitus, COVID positive status in 08/2020. DIET: Diabetic. ACCU-CHEKS: Before meals and at bedtime. CODE STATUS: Full code. ALLERGIES: Negative. Takes medications crushed and mixed with ice cream. Ambulates ad edmond. CURRENT PSYCHOTROPICS: Effexor 50 mg t.i.d., Namenda 10 mg b.i.d., Neurontin 300 mg b.i.d., Remeron 7.5 mg daily, and Exelon patch 13.3 mg a day. FAMILY HISTORY: Noncontributory. SOCIAL HISTORY: No history of alcohol, drug abuse, physical, sexual or elder abuse. He is not known to be a perpetrator. REACTION TO HOSPITALIZATION: The patient oblivious of this. ASSETS: Supportive living at the above facility. REVIEW OF SYSTEMS: No CV, , pulmonary, eye, ENT system symptoms on review. Reliability is poor. He is smiling, oblivious of his surroundings, even unable to answer his name when I directly and repeatedly questioned him on this. MENTAL STATUS EXAMINATION: The patient is oriented to himself, quite withdrawn, otherwise smiling. Insight, judgment, recent and remote memory, attention, concentration, fund of knowledge poor, consistent with his diagnosis. IMPRESSION: Major neurocognitive disorder, vascular with delusion, depression, behavioral disturbance; anxiety disorder, unspecified; impulse control disorder, unspecified. Rest as above. PLAN: Admit to Geropsychiatry Unit at [facility]. I see the patient daily individually from a psychiatric standpoint. Medical followup with Dr. Wayne/Dr. Zambrano. Continue current psychotropics. Observe baseline. Add trazodone and staff called me around 1:00 a.m. and we did initiate this early this morning, 50 mg at bedtime p.r.n. insomnia, may repeat x 2 p.r.n. Consider changing Effexor to Zoloft. Consider using low dose Depakote as a mood stabilizer. We will make all of these decisions post baseline assessment. ESTIMATED LENGTH OF STAY: 10-12 days. DISPOSITION: Plans back to retirement when stable. MAN Karyn STEVENS MD DR: YECENIA/will JOB#: [id number] / [id number]
--- NOTE | 2021-03-13 21:17 | PN ---
DATE: 03/13/2021 PSYCHIATRIC PROGRESS NOTE This late entry date of service 03/13/2021 covers elements not covered in my initial note. SUBJECTIVE: I met with the patient in the evening of 03/13/2021. I had been called by the nursing staff middle of last night and then talked with him in the morning. The patient has had marked insomnia, initially slept just one hour, total of 5-3/4 hours. Discussed with nursing staff. He has been restless, anxious, but did go out to the [facility] area, totally oblivious of his surroundings. REVIEW OF SYSTEMS: No CV, , pulmonary, eye, ENT system symptoms on review. Reliability poor. MENTAL STATUS EXAM: Oriented to himself. Insight, judgment, recent and remote memory, attention, concentration, fund of knowledge poor, consistent with his diagnosis. IMPRESSION: Major neurocognitive disorder, Alzheimer, vascular with delusion, depression, behavioral disturbance; anxiety disorder, unspecified; impulse control disorder, unspecified. Rest unchanged. PLAN: Continue current psychotropics. Trazodone has been added bedtime p.r.n. for insomnia. Consider Depakote as a mood stabilizer. We will make further changes as clinically indicated post baseline assessment. BRANDY STEVENS MD DR: YECENIA/will JOB#: [id number] / [id number]
--- NOTE | 2021-03-13 21:56 | PDOC ---
Exam Note: Da Note: Please also refer to the separate dictated note~for this date of service dictated separately.~Patient seen individually. Discussed the patient with Nursing staff reviewed the chart.~Reviewed interim history and current functioning. Reviewed vital signs,~Labs/ Radiology~and current medications noted below. Continue current treatment with the changes noted in the dictated addendum note Assessment: Vital Signs/I&O: Vital Signs Date Time Temp Pulse Resp B/P (MAP) Pulse Ox O2 Delivery O2 Flow Rate FiO2 03/13/21 16:14 98.0 92 19 124/79 (94) 99 Room Air I & O 03/12/21 03/12/21 03/13/21 15:00 23:00 07:00 Intake Total 480 ml Balance 480 ml Labs: Laboratory Tests Test 03/13/21 06:22 White Blood Count 8.7 x10^3/uL (4.0-11.0) Red Blood Count 5.43 x10^6/uL (4.30-5.70) Hemoglobin 15.7 g/dL (13.0-17.5) Hematocrit 48.0 % (39.0-53.0) Mean Corpuscular Volume 88 fL (79-100) Mean Corpuscular Hemoglobin 29 pg (25-35) Mean Corpuscular Hemoglobin Concent 33 g/dL (31-37) Red Cell Distribution Width 13.9 % (11.5-14.5) Platelet Count 165 x10^3/uL (140-400) Neutrophils (%) (Auto) 68 % (31-73) Lymphocytes (%) (Auto) 21 % (24-48) L Monocytes (%) (Auto) 9 % (0-9) Eosinophils (%) (Auto) 2 % (0-3) Basophils (%) (Auto) 0 % (0-3) Neutrophils # (Auto) 5.9 x10^3uL (1.8-7.7) Lymphocytes # (Auto) 1.8 x10^3/uL (1.0-4.8) Monocytes # (Auto) 0.8 x10^3/uL (0.0-1.1) Eosinophils # (Auto) 0.2 x10^3/uL (0.0-0.7) Basophils # (Auto) 0.0 x10^3/uL (0.0-0.2) D-Dimer ([place]) 2.56 mg/L (0.00-0.50) H Sodium Level 140 mmol/L (136-145) Potassium Level 3.6 mmol/L (3.5-5.1) Chloride Level 104 mmol/L (98-107) Carbon Dioxide Level 28 mmol/L (21-32) Anion Gap 8 (6-14) Blood Urea Nitrogen 20 mg/dL (8-26) Creatinine 1.0 mg/dL (0.7-1.3) Estimated GFR (Cockcroft-Gault) 75.5 BUN/Creatinine Ratio 20 (6-20) Glucose Level 152 mg/dL (70-99) H Calcium Level 9.4 mg/dL (8.5-10.1) Magnesium Level 1.8 mg/dL (1.8-2.4) Iron Level 84 ug/dL (65-175) Total Iron Binding Capacity 295 ug/dL (250-450) Iron Saturation 28 % (15-34) Total Bilirubin 0.6 mg/dL (0.2-1.0) Aspartate Amino Transferase (AST) 14 U/L (15-37) L Alanine Aminotransferase (ALT) 23 U/L (16-63) Alkaline Phosphatase 90 U/L (46-116) Total Protein 7.7 g/dL (6.4-8.2) Albumin 3.5 g/dL (3.4-5.0) Albumin/Globulin Ratio 0.8 (1.0-1.7) L Triglycerides Level 85 mg/dL (0-150) Cholesterol Level 216 mg/dL (0-200) H LDL Cholesterol, Calculated 163 mg/dL (0-100) H VLDL Cholesterol, Calculated 17 mg/dL (0-40) Non-HDL Cholesterol Calculated 180 mg/dL (0-129) H HDL Cholesterol 36 mg/dL (40-60) L Cholesterol/HDL Ratio 6.0 Thyroid Stimulating Hormone (TSH) 2.078 uIU/mL (0.358-3.740) Current Medications: Meds: Laboratory Tests Test 03/13/21 06:22 White Blood Count 8.7 x10^3/uL Red Blood Count 5.43 x10^6/uL Hemoglobin 15.7 g/dL Hematocrit 48.0 % Mean Corpuscular Volume 88 fL Mean Corpuscular Hemoglobin 29 pg Mean Corpuscular Hemoglobin Concent 33 g/dL Red Cell Distribution Width 13.9 % Platelet Count 165 x10^3/uL Neutrophils (%) (Auto) 68 % Lymphocytes (%) (Auto) 21 % Monocytes (%) (Auto) 9 % Eosinophils (%) (Auto) 2 % Basophils (%) (Auto) 0 % Neutrophils # (Auto) 5.9 x10^3uL Lymphocytes # (Auto) 1.8 x10^3/uL Monocytes # (Auto) 0.8 x10^3/uL Eosinophils # (Auto) 0.2 x10^3/uL Basophils # (Auto) 0.0 x10^3/uL D-Dimer ([place]) 2.56 mg/L Sodium Level 140 mmol/L Potassium Level 3.6 mmol/L Chloride Level 104 mmol/L Carbon Dioxide Level 28 mmol/L Anion Gap 8 Blood Urea Nitrogen 20 mg/dL Creatinine 1.0 mg/dL Estimated GFR (Cockcroft-Gault) 75.5 BUN/Creatinine Ratio 20 Glucose Level 152 mg/dL Calcium Level 9.4 mg/dL Magnesium Level 1.8 mg/dL Iron Level 84 ug/dL Total Iron Binding Capacity 295 ug/dL Iron Saturation 28 % Total Bilirubin 0.6 mg/dL Aspartate Amino Transf (AST/SGOT) 14 U/L Alanine Aminotransferase (ALT/SGPT) 23 U/L Alkaline Phosphatase 90 U/L Total Protein 7.7 g/dL Albumin 3.5 g/dL Albumin/Globulin Ratio 0.8 Triglycerides Level 85 mg/dL Cholesterol Level 216 mg/dL LDL Cholesterol, Calculated 163 mg/dL VLDL Cholesterol, Calculated 17 mg/dL Non-HDL Cholesterol Calculated 180 mg/dL HDL Cholesterol 36 mg/dL Cholesterol/HDL Ratio 6.0 Thyroid Stimulating Hormone (TSH) 2.078 uIU/mL Current Medications Medications (Trade) Dose Ordered Sig/Cierra Route PRN Reason Start Time Stop Time Status Last Admin Dose Admin Acetaminophen (Tylenol) 650 mg PRN Q6HRS PRN PO MILD PAIN / TEMP > 100.3'F 03/12/21 18:15 Multi-Ingredient Ointment (Analgesic [place]) 1 kory PRN QID PRN TP MUSCLE PAIN 03/12/21 18:15 Al Hydroxide/Mg Hydroxide (Mylanta Plus Xs) 15 ml PRN AFTMEALHC PRN PO DYSPEPSIA 03/12/21 18:15 Magnesium Hydroxide (Milk Of Magnesia) 2,400 mg PRN QHS PRN PO CONSTIPATION 03/12/21 18:15 Rivastigmine (Exelon 13.3mg) 1 patch DAILY TD 03/13/21 09:00 03/13/21 08:25 Gabapentin (Neurontin) 300 mg BID PO 03/12/21 21:00 03/13/21 19:47 Memantine (Namenda) 10 mg BID PO 03/12/21 21:00 03/13/21 19:47 Mirtazapine (Remeron) 7.5 mg DAILY PO 03/13/21 09:00 03/13/21 08:20 Venlafaxine HCl (Effexor) 50 mg TID PO 03/13/21 09:00 03/13/21 19:48 Docusate Sodium (Colace) 100 mg BID PO 03/13/21 09:00 03/13/21 19:47 Metformin HCl (Glucophage) 1,000 mg BIDWMEALS PO 03/13/21 08:00 03/13/21 17:27 Olanzapine (ZyPREXA ZYDIS) 2.5 mg PRN Q2HR PRN PO PSYCHOSIS 03/13/21 07:30 Trazodone HCl (Desyrel) 50 mg PRN QHS PRN PO INSOMNIA 03/13/21 07:30 Current Medications Medications (Trade) Dose Ordered Sig/Cierra Route PRN Reason Start Time Stop Time Status Last Admin Dose Admin Rivastigmine (Exelon 13.3mg) 1 patch DAILY TD 03/13/21 09:00 03/13/21 08:25 Mirtazapine (Remeron) 7.5 mg DAILY PO 03/13/21 09:00 03/13/21 08:20 Venlafaxine HCl (Effexor) 50 mg TID PO 03/13/21 09:00 03/13/21 19:48 Docusate Sodium (Colace) 100 mg BID PO 03/13/21 09:00 03/13/21 19:47 Metformin HCl (Glucophage) 1,000 mg BIDWMEALS PO 03/13/21 08:00 03/13/21 17:27 I have reviewed the current psychotropics carefully including drug interactions. Risk benefit ratio favors no change other than as noted in my dictated progress note. Diagnosis: Problems: (1) Anxiety disorder (2) Dementia associated with alcoholism with behavioral disturbance (3) Dementia, vascular, with delusions (4) Dementia, vascular, with depression (5) Dementia in Alzheimer's disease with delusions (6) Dementia in Alzheimer's disease with depression (7) Impulse control disorder BRANDY STEVENS MD Mar 13, 2021 21:56
[2021-03-14 05:39] LABS: HEMOGLOBIN A1C 7.3 % (4.8-5.6)
[2021-03-14 06:45] VITALS: BP 134/76
--- NOTE | 2021-03-14 07:38 | PDOC ---
Exam Note: Da Note: This note is a late entry in addition to my dictated note on the patient on 03/13/2021. Discussed with [facility] nursing staff. The patient has been wandering and he has had a fall but no injury. His DPOA sister indicated that this happens a lot per nursing report because of his poor vision. Assessment: Vital Signs/I&O: Vital Signs Date Time Temp Pulse Resp B/P (MAP) Pulse Ox O2 Delivery O2 Flow Rate FiO2 03/14/21 06:45 97.7 86 23 134/76 (95) 96 03/13/21 16:14 Room Air I & O 03/13/21 03/13/21 03/14/21 15:00 23:00 07:00 Intake Total 600 ml 480 ml Balance 600 ml 480 ml Labs: Laboratory Tests Test 03/14/21 07:25 Glucose (Fingerstick) 193 mg/dL (70-99) H Current Medications: Meds: Laboratory Tests Test 03/14/21 07:25 Glucose (Fingerstick) 193 mg/dL Current Medications Medications (Trade) Dose Ordered Sig/Cierra Route PRN Reason Start Time Stop Time Status Last Admin Dose Admin Acetaminophen (Tylenol) 650 mg PRN Q6HRS PRN PO MILD PAIN / TEMP > 100.3'F 03/12/21 18:15 Multi-Ingredient Ointment (Analgesic [place]) 1 kory PRN QID PRN TP MUSCLE PAIN 03/12/21 18:15 Al Hydroxide/Mg Hydroxide (Mylanta Plus Xs) 15 ml PRN AFTMEALHC PRN PO DYSPEPSIA 03/12/21 18:15 Magnesium Hydroxide (Milk Of Magnesia) 2,400 mg PRN QHS PRN PO CONSTIPATION 03/12/21 18:15 Rivastigmine (Exelon 13.3mg) 1 patch DAILY TD 03/13/21 09:00 03/13/21 08:25 Gabapentin (Neurontin) 300 mg BID PO 03/12/21 21:00 03/13/21 19:47 Memantine (Namenda) 10 mg BID PO 03/12/21 21:00 03/13/21 19:47 Mirtazapine (Remeron) 7.5 mg DAILY PO 03/13/21 09:00 03/13/21 08:20 Venlafaxine HCl (Effexor) 50 mg TID PO 03/13/21 09:00 03/13/21 19:48 Docusate Sodium (Colace) 100 mg BID PO 03/13/21 09:00 03/13/21 19:47 Metformin HCl (Glucophage) 1,000 mg BIDWMEALS PO 03/13/21 08:00 03/13/21 17:27 Olanzapine (ZyPREXA ZYDIS) 2.5 mg PRN Q2HR PRN PO PSYCHOSIS 03/13/21 07:30 Trazodone HCl (Desyrel) 50 mg PRN QHS PRN PO INSOMNIA 03/13/21 07:30 Current Medications Medications (Trade) Dose Ordered Sig/Cierra Route PRN Reason Start Time Stop Time Status Last Admin Dose Admin Rivastigmine (Exelon 13.3mg) 1 patch DAILY TD 03/13/21 09:00 03/13/21 08:25 Mirtazapine (Remeron) 7.5 mg DAILY PO 03/13/21 09:00 03/13/21 08:20 Venlafaxine HCl (Effexor) 50 mg TID PO 03/13/21 09:00 03/13/21 19:48 Docusate Sodium (Colace) 100 mg BID PO 03/13/21 09:00 03/13/21 19:47 Metformin HCl (Glucophage) 1,000 mg BIDWMEALS PO 03/13/21 08:00 03/13/21 17:27 I have reviewed the current psychotropics carefully including drug interactions. Risk benefit ratio favors no change other than as noted in my dictated progress note. Diagnosis: Problems: (1) Major neurocognitive disorder (2) Dementia with behavioral disturbance (3) Anxiety disorder (4) Dementia associated with alcoholism with behavioral disturbance (5) Dementia, vascular, with delusions (6) Dementia, vascular, with depression (7) Dementia in Alzheimer's disease with delusions (8) Dementia in Alzheimer's disease with depression (9) Impulse control disorder BRANDY STEVENS MD Mar 14, 2021 07:38
[2021-03-14] MEDS: metFORMIN 500 MG TABLET PO SCH ×2 (08:10→17:17)
[2021-03-14] MEDS: VENLAFAXINE 50 MG TABLET. PO SCH ×2 (08:11→17:17)
[2021-03-14] MEDS: DOCUSATE SODIUM 100 MG CAPSULE PO SCH ×2 (08:11→20:51)
[2021-03-14] MEDS: MEMANTINE 10 MG TABLET. PO SCH ×2 (08:11→20:51)
[2021-03-14] MEDS: RIVASTIGMINE 13.3MG PATCH. TD SCH (08:11)
[2021-03-14] MEDS: GABAPENTIN 300 MG CAPSULE. PO SCH ×2 (08:11→20:51)
[2021-03-14] MEDS: MIRTAZAPINE 7.5 MG TABLET. PO SCH (08:12)
[2021-03-14 16:07] VITALS: BP 123/85
[2021-03-14 19:17] LABS: BACTERIA,URINE FEW /HPF (0-FEW); BILIRUBIN,URINE NEG (NEG); COLOR,URINE YELLOW; GLUCOSE,URINE NEG (NEG); NITRITE,URINE NEG (NEG); SQUAMOUS EPITHELIAL CELL,UR OCC /LPF; WBC,URINE 20-40 /HPF (0-4)
[2021-03-14 19:18] LABS: CLARITY,URINE CLEAR
--- NOTE | 2021-03-14 22:03 | PDOC ---
Exam Note: Da Note: Please also refer to the separate dictated note~for this date of service dictated separately.~Patient seen individually. Discussed the patient with Nursing staff reviewed the chart.~Reviewed interim history and current functioning. Reviewed vital signs,~Labs/ Radiology~and current medications noted below. Continue current treatment with the changes noted in the dictated addendum note Assessment: Vital Signs/I&O: Vital Signs Date Time Temp Pulse Resp B/P (MAP) Pulse Ox O2 Delivery O2 Flow Rate FiO2 03/14/21 16:07 97.2 83 18 123/85 (98) 98 03/13/21 16:14 Room Air I & O 03/13/21 03/13/21 03/14/21 15:00 23:00 07:00 Intake Total 600 ml 480 ml Balance 600 ml 480 ml Labs: Laboratory Tests Test 03/14/21 07:25 03/14/21 18:10 Glucose (Fingerstick) 193 mg/dL (70-99) H Urine Collection Type U cath Urine Color Yellow Urine Clarity Clear Urine pH 6.0 Urine Specific [place] >=1.030 Urine Protein Neg (NEG-TRACE) Urine Glucose (UA) Neg mg/dL (NEG) Urine Ketones (Stick) Neg mg/dL (NEG) Urine Blood Trace (NEG) Urine Nitrite Neg (NEG) Urine Bilirubin Neg (NEG) Urine Urobilinogen Dipstick 1.0 mg/dL (0.2 mg/dL) Urine Leukocyte Esterase Trace (NEG) Urine RBC 1-2 /HPF (0-2) Urine WBC 20-40 /HPF (0-4) Urine Squamous Epithelial Cells Occ /LPF Urine Bacteria Few /HPF (0-FEW) Current Medications: Meds: Laboratory Tests Test 03/14/21 07:25 03/14/21 18:10 Glucose (Fingerstick) 193 mg/dL Urine Collection Type U cath Urine Color Yellow Urine Clarity Clear Urine pH 6.0 Urine Specific [place] >=1.030 Urine Protein Neg Urine Glucose (UA) Neg mg/dL Urine Ketones (Stick) Neg mg/dL Urine Blood Trace Urine Nitrite Neg Urine Bilirubin Neg Urine Urobilinogen Dipstick 1.0 mg/dL Urine Leukocyte Esterase Trace Urine RBC 1-2 /HPF Urine WBC 20-40 /HPF Urine Squamous Epithelial Cells Occ /LPF Urine Bacteria Few /HPF Current Medications Medications (Trade) Dose Ordered Sig/Cierra Route PRN Reason Start Time Stop Time Status Last Admin Dose Admin Acetaminophen (Tylenol) 650 mg PRN Q6HRS PRN PO MILD PAIN / TEMP > 100.3'F 03/12/21 18:15 Multi-Ingredient Ointment (Analgesic [place]) 1 kory PRN QID PRN TP MUSCLE PAIN 03/12/21 18:15 Al Hydroxide/Mg Hydroxide (Mylanta Plus Xs) 15 ml PRN AFTMEALHC PRN PO DYSPEPSIA 03/12/21 18:15 Magnesium Hydroxide (Milk Of Magnesia) 2,400 mg PRN QHS PRN PO CONSTIPATION 03/12/21 18:15 Rivastigmine (Exelon 13.3mg) 1 patch DAILY TD 03/13/21 09:00 03/14/21 08:11 Gabapentin (Neurontin) 300 mg BID PO 03/12/21 21:00 03/14/21 20:51 Memantine (Namenda) 10 mg BID PO 03/12/21 21:00 03/14/21 20:51 Mirtazapine (Remeron) 7.5 mg DAILY PO 03/13/21 09:00 03/14/21 08:12 Venlafaxine HCl (Effexor) 50 mg TID PO 03/13/21 09:00 03/14/21 17:30 DC 03/14/21 17:17 Docusate Sodium (Colace) 100 mg BID PO 03/13/21 09:00 03/14/21 20:51 Metformin HCl (Glucophage) 1,000 mg BIDWMEALS PO 03/13/21 08:00 03/14/21 17:17 Olanzapine (ZyPREXA ZYDIS) 2.5 mg PRN Q2HR PRN PO PSYCHOSIS 03/13/21 07:30 Trazodone HCl (Desyrel) 50 mg PRN QHS PRN PO INSOMNIA 03/13/21 07:30 Sertraline HCl (Zoloft) 50 mg DAILY PO 03/15/21 09:00 I have reviewed the current psychotropics carefully including drug interactions. Risk benefit ratio favors no change other than as noted in my dictated progress note. Diagnosis: Problems: (1) Major neurocognitive disorder (2) Anxiety disorder (3) Dementia associated with alcoholism with behavioral disturbance (4) Dementia, vascular, with delusions (5) Dementia, vascular, with depression (6) Dementia in Alzheimer's disease with delusions (7) Dementia in Alzheimer's disease with depression (8) Impulse control disorder BRANDY STEVENS MD Mar 14, 2021 22:03
--- NOTE | 2021-03-15 06:28 | EKG ---
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
--- NOTE | 2021-03-15 06:32 | PDOC ---
Exam Note: Da Note: This note is a late entry for 03/14/2021 covers elements not covered in my initial note. Subjective: The patient was seen individually in the evening of 03/14/2021 with Neha SHAW, discussed and reviewed the chart. The patient slept 7 hours previous night. He remains confused, withdrawn. He was lying in bed in his room, which is where I met with him. He is compliant with his medications. Review of Systems: No CV, , pulmonary, eye system symptoms on review. He was lying in bed in his room, which is where I met with him. Later I saw him in the hallway. Reliability poor. Reliability poor. Mental Status Exam: The patient is oriented just to himself. Insight and judgment, recent and remote memory, attention and concentration, fund of knowledge is poor consistent with his diagnoses. Laboratory Data: Reviewed. Impression: Major neurocognitive disorder Alzheimer vascular with delusion, depression, behavioral disturbance. Impulse control disorder unspecified. Anxiety disorder unspecified. Plan: Change the patients Effexor 50 mg t.i.d. to Zoloft 50 mg a day. Maintain Neurontin, Namenda, Remeron Exelon patch along with trazodone p.r.n., Zyprexa p.r.n. Adjust further as clinically indicated. Assessment: Vital Signs/I&O: Vital Signs Date Time Temp Pulse Resp B/P (MAP) Pulse Ox O2 Delivery O2 Flow Rate FiO2 03/15/21 06:28 98.5 116 16 94 03/14/21 16:07 123/85 (98) 03/13/21 16:14 Room Air I & O 03/14/21 03/14/21 03/15/21 15:00 23:00 07:00 Intake Total 240 ml Output Total 30 ml Balance 210 ml Labs: Laboratory Tests Test 03/14/21 07:25 03/14/21 18:10 Glucose (Fingerstick) 193 mg/dL (70-99) H Urine Collection Type U cath Urine Color Yellow Urine Clarity Clear Urine pH 6.0 Urine Specific [place] >=1.030 Urine Protein Neg (NEG-TRACE) Urine Glucose (UA) Neg mg/dL (NEG) Urine Ketones (Stick) Neg mg/dL (NEG) Urine Blood Trace (NEG) Urine Nitrite Neg (NEG) Urine Bilirubin Neg (NEG) Urine Urobilinogen Dipstick 1.0 mg/dL (0.2 mg/dL) Urine Leukocyte Esterase Trace (NEG) Urine RBC 1-2 /HPF (0-2) Urine WBC 20-40 /HPF (0-4) Urine Squamous Epithelial Cells Occ /LPF Urine Bacteria Few /HPF (0-FEW) Current Medications: Meds: Laboratory Tests Test 03/14/21 07:25 03/14/21 18:10 Glucose (Fingerstick) 193 mg/dL Urine Collection Type U cath Urine Color Yellow Urine Clarity Clear Urine pH 6.0 Urine Specific [place] >=1.030 Urine Protein Neg Urine Glucose (UA) Neg mg/dL Urine Ketones (Stick) Neg mg/dL Urine Blood Trace Urine Nitrite Neg Urine Bilirubin Neg Urine Urobilinogen Dipstick 1.0 mg/dL Urine Leukocyte Esterase Trace Urine RBC 1-2 /HPF Urine WBC 20-40 /HPF Urine Squamous Epithelial Cells Occ /LPF Urine Bacteria Few /HPF Current Medications Medications (Trade) Dose Ordered Sig/Cierra Route PRN Reason Start Time Stop Time Status Last Admin Dose Admin Acetaminophen (Tylenol) 650 mg PRN Q6HRS PRN PO MILD PAIN / TEMP > 100.3'F 03/12/21 18:15 Multi-Ingredient Ointment (Analgesic [place]) 1 kory PRN QID PRN TP MUSCLE PAIN 03/12/21 18:15 Al Hydroxide/Mg Hydroxide (Mylanta Plus Xs) 15 ml PRN AFTMEALHC PRN PO DYSPEPSIA 03/12/21 18:15 Magnesium Hydroxide (Milk Of Magnesia) 2,400 mg PRN QHS PRN PO CONSTIPATION 03/12/21 18:15 Rivastigmine (Exelon 13.3mg) 1 patch DAILY TD 03/13/21 09:00 03/14/21 08:11 Gabapentin (Neurontin) 300 mg BID PO 03/12/21 21:00 03/14/21 20:51 Memantine (Namenda) 10 mg BID PO 03/12/21 21:00 03/14/21 20:51 Mirtazapine (Remeron) 7.5 mg DAILY PO 03/13/21 09:00 03/14/21 08:12 Venlafaxine HCl (Effexor) 50 mg TID PO 03/13/21 09:00 03/14/21 17:30 DC 03/14/21 17:17 Docusate Sodium (Colace) 100 mg BID PO 03/13/21 09:00 03/14/21 20:51 Metformin HCl (Glucophage) 1,000 mg BIDWMEALS PO 03/13/21 08:00 03/14/21 17:17 Olanzapine (ZyPREXA ZYDIS) 2.5 mg PRN Q2HR PRN PO PSYCHOSIS 03/13/21 07:30 Trazodone HCl (Desyrel) 50 mg PRN QHS PRN PO INSOMNIA 03/13/21 07:30 Sertraline HCl (Zoloft) 50 mg DAILY PO 03/15/21 09:00 I have reviewed the current psychotropics carefully including drug interactions. Risk benefit ratio favors no change other than as noted in my dictated progress note. Diagnosis: Problems: (1) Major neurocognitive disorder (2) Anxiety disorder (3) Dementia associated with alcoholism with behavioral disturbance (4) Dementia, vascular, with delusions (5) Dementia, vascular, with depression (6) Dementia in Alzheimer's disease with delusions (7) Dementia in Alzheimer's disease with depression (8) Impulse control disorder BRANDY STEVENS MD Mar 15, 2021 06:32
[2021-03-15] MEDS: MIRTAZAPINE 7.5 MG TABLET. PO SCH (08:18)
[2021-03-15] MEDS: SERTRALINE 25 MG TABLET. PO SCH (08:18)
[2021-03-15] MEDS: MEMANTINE 10 MG TABLET. PO SCH ×2 (08:18→19:59)
[2021-03-15] MEDS: RIVASTIGMINE 13.3MG PATCH. TD SCH (08:18)
[2021-03-15] MEDS: metFORMIN 500 MG TABLET PO SCH ×2 (08:19→16:18)
[2021-03-15] MEDS: DOCUSATE SODIUM 100 MG CAPSULE PO SCH (08:19)
[2021-03-15] MEDS: GABAPENTIN 300 MG CAPSULE. PO SCH ×2 (08:19→19:59)
[2021-03-15 15:50] VITALS: BP 129/78
[2021-03-15] MEDS: traZODone 50 MG TABLET. PO PRN (19:59)
--- NOTE | 2021-03-15 22:00 | PDOC ---
Exam Note: Da Note: Please also refer to the separate dictated note~for this date of service dictated separately.~Patient seen individually. Discussed the patient with Nursing staff reviewed the chart.~Reviewed interim history and current functioning. Reviewed vital signs,~Labs/ Radiology~and current medications noted below. Continue current treatment with the changes noted in the dictated addendum note Assessment: Vital Signs/I&O: Vital Signs Date Time Temp Pulse Resp B/P (MAP) Pulse Ox O2 Delivery O2 Flow Rate FiO2 03/15/21 15:50 98.3 74 18 129/78 (95) 98 03/13/21 16:14 Room Air I & O 03/14/21 03/14/21 03/15/21 14:59 22:59 06:59 Intake Total 240 ml Output Total 30 ml Balance 210 ml Labs: Laboratory Tests Test 03/15/21 07:37 Glucose (Fingerstick) 170 mg/dL (70-99) H Current Medications: Meds: Laboratory Tests Test 03/15/21 07:37 Glucose (Fingerstick) 170 mg/dL Current Medications Medications (Trade) Dose Ordered Sig/Cierra Route PRN Reason Start Time Stop Time Status Last Admin Dose Admin Acetaminophen (Tylenol) 650 mg PRN Q6HRS PRN PO MILD PAIN / TEMP > 100.3'F 03/12/21 18:15 Multi-Ingredient Ointment (Analgesic [place]) 1 kory PRN QID PRN TP MUSCLE PAIN 03/12/21 18:15 Al Hydroxide/Mg Hydroxide (Mylanta Plus Xs) 15 ml PRN AFTMEALHC PRN PO DYSPEPSIA 03/12/21 18:15 Magnesium Hydroxide (Milk Of Magnesia) 2,400 mg PRN QHS PRN PO CONSTIPATION 03/12/21 18:15 Rivastigmine (Exelon 13.3mg) 1 patch DAILY TD 03/13/21 09:00 03/15/21 08:18 Gabapentin (Neurontin) 300 mg BID PO 03/12/21 21:00 03/15/21 19:59 Memantine (Namenda) 10 mg BID PO 03/12/21 21:00 03/15/21 19:59 Mirtazapine (Remeron) 7.5 mg DAILY PO 03/13/21 09:00 03/15/21 12:40 DC 03/15/21 08:18 Venlafaxine HCl (Effexor) 50 mg TID PO 03/13/21 09:00 03/14/21 17:30 DC 03/14/21 17:17 Docusate Sodium (Colace) 100 mg BID PO 03/13/21 09:00 03/15/21 10:48 DC 03/15/21 08:19 Metformin HCl (Glucophage) 1,000 mg BIDWMEALS PO 03/13/21 08:00 03/15/21 16:18 Olanzapine (ZyPREXA ZYDIS) 2.5 mg PRN Q2HR PRN PO PSYCHOSIS 03/13/21 07:30 Trazodone HCl (Desyrel) 50 mg PRN QHS PRN PO INSOMNIA 03/13/21 07:30 03/15/21 19:59 Sertraline HCl (Zoloft) 50 mg DAILY PO 03/15/21 09:00 03/15/21 08:18 Mirtazapine (Remeron) 7.5 mg HS PO 03/16/21 21:00 Current Medications Medications (Trade) Dose Ordered Sig/Cierra Route PRN Reason Start Time Stop Time Status Last Admin Dose Admin Sertraline HCl (Zoloft) 50 mg DAILY PO 03/15/21 09:00 03/15/21 08:18 I have reviewed the current psychotropics carefully including drug interactions. Risk benefit ratio favors no change other than as noted in my dictated progress note. 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
[2021-03-16 06:02] VITALS: BP 104/65
--- NOTE | 2021-03-16 06:43 | PDOC ---
Exam Note: Da Note: This note is a late entry for 03/15/2021 covers elements not covered in my initial note. Subjective: The patient was reviewed in the morning of 03/15/2021 for a treatment team meeting with Edie Amanda, Dominique Mckay and Felicita (licensed master social worker), Letty, activity therapy and Neha SHAW, discussed and reviewed the chart. The patient slept 8 hours previous night. He has been confused. Often refuses to open his mouth for medications. We are awaiting his psychosocial history to clarify and fact is contributing to his dementia at such an early age. Review of Systems: No CV, , pulmonary, eye system symptoms on review. Reliability poor. Mental Status Exam: The patient is oriented to himself. Insight and judgment, recent and remote memory, attention and concentration, fund of knowledge is poor consistent with his diagnoses. Laboratory Data: Reviewed. Impression: Major neurocognitive disorder Alzheimer vascular with delusion, depression, behavioral disturbance. Impulse control disorder unspecified. Anxiety disorder unspecified. Plan: Change his Remeron 7.5 mg a.m. to 7.5 mg h.s. since the daytime dosage might worsen his sedation. Continue rest of the psychotropics unchanged. Assessment: Vital Signs/I&O: Vital Signs Date Time Temp Pulse Resp B/P (MAP) Pulse Ox O2 Delivery O2 Flow Rate FiO2 03/16/21 06:02 97.9 92 16 104/65 (78) 97 Room Air I & O 0 03/15/21 03/15/21 03/16/21 15:00 23:00 07:00 Intake Total 720 ml 360 ml 240 ml Balance 720 ml 360 ml 240 ml Labs: Laboratory Tests Test 03/15/21 07:37 Glucose (Fingerstick) 170 mg/dL (70-99) H Current Medications: Meds: Laboratory Tests Test 03/15/21 07:37 Glucose (Fingerstick) 170 mg/dL Current Medications Medications (Trade) Dose Ordered Sig/Cierra Route PRN Reason Start Time Stop Time Status Last Admin Dose Admin Acetaminophen (Tylenol) 650 mg PRN Q6HRS PRN PO MILD PAIN / TEMP > 100.3'F 03/12/21 18:15 Multi-Ingredient Ointment (Analgesic [place]) 1 kory PRN QID PRN TP MUSCLE PAIN 03/12/21 18:15 Al Hydroxide/Mg Hydroxide (Mylanta Plus Xs) 15 ml PRN AFTMEALHC PRN PO DYSPEPSIA 03/12/21 18:15 Magnesium Hydroxide (Milk Of Magnesia) 2,400 mg PRN QHS PRN PO CONSTIPATION 03/12/21 18:15 Rivastigmine (Exelon 13.3mg) 1 patch DAILY TD 03/13/21 09:00 03/15/21 08:18 Gabapentin (Neurontin) 300 mg BID PO 03/12/21 21:00 03/15/21 19:59 Memantine (Namenda) 10 mg BID PO 03/12/21 21:00 03/15/21 19:59 Mirtazapine (Remeron) 7.5 mg DAILY PO 03/13/21 09:00 03/15/21 12:40 DC 03/15/21 08:18 Venlafaxine HCl (Effexor) 50 mg TID PO 03/13/21 09:00 03/14/21 17:30 DC 03/14/21 17:17 Docusate Sodium (Colace) 100 mg BID PO 03/13/21 09:00 03/15/21 10:48 DC 03/15/21 08:19 Metformin HCl (Glucophage) 1,000 mg BIDWMEALS PO 03/13/21 08:00 03/15/21 16:18 Olanzapine (ZyPREXA ZYDIS) 2.5 mg PRN Q2HR PRN PO PSYCHOSIS 03/13/21 07:30 Trazodone HCl (Desyrel) 50 mg PRN QHS PRN PO INSOMNIA 03/13/21 07:30 03/15/21 19:59 Sertraline HCl (Zoloft) 50 mg DAILY PO 03/15/21 09:00 03/15/21 08:18 Mirtazapine (Remeron) 7.5 mg HS PO 03/16/21 21:00 Current Medications Medications (Trade) Dose Ordered Sig/Cierra Route PRN Reason Start Time Stop Time Status Last Admin Dose Admin Sertraline HCl (Zoloft) 50 mg DAILY PO 03/15/21 09:00 03/15/21 08:18 I have reviewed the current psychotropics carefully including drug interactions. Risk benefit ratio favors no change other than as noted in my dictated progress note. 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
[2021-03-16] MEDS: MEMANTINE 10 MG TABLET. PO SCH ×2 (08:06→21:13)
[2021-03-16] MEDS: metFORMIN 500 MG TABLET PO SCH ×2 (08:06→16:10)
[2021-03-16] MEDS: SERTRALINE 25 MG TABLET. PO SCH (08:06)
[2021-03-16] MEDS: RIVASTIGMINE 13.3MG PATCH. TD SCH (08:06)
[2021-03-16] MEDS: GABAPENTIN 300 MG CAPSULE. PO SCH ×2 (09:00→21:13)
--- NOTE | 2021-03-16 15:41 | TX PLAN ---
Interdisciplinary Tx Plan Admission Information Mar 12, 2021 at 15:55 Legal Status (on Admission): Voluntary DPOA/Guardian Name: Lissy Pleitez Contact [facility] Other Contact Verified Code Status: DNR Allergies: Coded Allergies: No Known Drug Allergies (Unverified , 02/26/19) Diagnoses Primary Diagnosis: Bipolar D/O recent episode, manic Reasons for Admission: Combative, Confusion/Disoriented, Poor impulse control, Other Problem in Patient's Words: His behavior is changing and becoming aggressive Additional Admission Comments: According to the intake, pt was urinating and defecating on the floor, wandering with elopement attempts, pulling fire alarms, hitting staff on the head and in the face, agitated, pacing, and believes he is being stalked Problems Active Problems: wandering confused disorganized Inactive Problems: medication compliance no aggression noted Pt Strengths/Limitations Ability for [place]: Poor Cognitive Functioning/Ability: Poor Communication Skills/Ability: Poor Financial Resources: Fair Insight/Judgement: Poor Intellectual Ability: Poor Physical Health: Poor Social Skills: Poor Stability in Family: Good Stability in School/Work: Poor Verbal Skills: Poor Discharge Criteria Discharge Criteria: No need for close observ., Adequate arrangements @DC, Improved behavior, Improved mood/thought Preliminary Discharge Plan Preliminary DC Plan: Current Living Arrange., Other Special Precautions Fall Risk: Low Initial D/C Plan Pt to [facility] Identified Discharge Needs: Pt sister believes that pt will return to placement; however has been told she needs to call and see if other placements have availability. Currently Utilized Resources Currently Utilized Resources/P: Primary Care Physician Identified Problems/Hx/Goals Objectives/Short-Term Goals Short Term Goals: Control abnormal behavior, Dec. Aggression, Dec. Outbursts, Medication Stabilization, Promote Coping Skill Short Term Goals in Patient's: N/A Interventions/Frequency Staff Interventions/Frequency&: Psychiatrist to assess pt at least 3x per week for medication mgmt. Social Work to assess pt at least 2x per week to identify barriers to care and discharge planning goals. Nursing to assess for medication effects, behavior modification and completion of 15 minute checks daily. Encourage participation in group activities (if applicable) or 1:1 engagement based off activity dept goals. 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 I am not sure what I am supposed to do next, but if you can guide me, I'll do what I can. Treatment Plan Explained Patient/Road Machine Operator had this treatment plan explained to him/her as indicated by the signature below and has been given the opportunity to ask questions and make suggestions: Date: Patient/Road Machine Operator Signature: Patient/Road Machine Operator Decline: No (Pt sister is actively involved in pt care.) SHASTA SAEED Mar 16, 2021 15:40
[2021-03-16 16:11] VITALS: BP 108/73
--- NOTE | 2021-03-16 18:50 | RAD ---
CT brain without contrast. HISTORY: Change in mental status CT scan of brain was done without contrast. Comparison is made with a study from February 2019. Sinuses are clear. A skull fracture is not identified. There is no intracranial hemorrhage or subdural hemato ma. There is no mass effect or shift of the midline. Ventricles are normal in size. An acute CVA is n ot identified. IMPRESSION: 1. No intracranial hemorrhage or acute finding noted. PQRS Compliance Statement: One or more of the following individualized dose reduction techniques were utilized for this examinat ion: 1. Automated exposure control 2. Adjustment of the mA and/or kV according to patient size 3. Use of iterative reconstruction technique Electronically signed by: Carter Celestin MD (03/16/2021 6:48 PM) [facility]
[2021-03-16] MEDS: MIRTAZAPINE 7.5 MG TABLET. PO SCH (21:13)
--- NOTE | 2021-03-16 23:04 | PDOC ---
Exam Note: Da Note: Please also refer to the separate dictated note~for this date of service dictated separately.~Patient seen individually. Discussed the patient with Nursing staff reviewed the chart.~Reviewed interim history and current functioning. Reviewed vital signs,~Labs/ Radiology~and current medications noted below. Continue current treatment with the changes noted in the dictated addendum note Assessment: Vital Signs/I&O: Vital Signs Date Time Temp Pulse Resp B/P (MAP) Pulse Ox O2 Delivery O2 Flow Rate FiO2 03/16/21 16:11 99.0 94 16 108/73 (85) 97 03/16/21 06:02 Room Air I & O 03/15/21 03/15/21 03/16/21 15:00 23:00 07:00 Intake Total 720 ml 360 ml 240 ml Balance 720 ml 360 ml 240 ml Labs: Laboratory Tests Test 03/16/21 07:40 03/16/21 12:03 Glucose (Fingerstick) 168 mg/dL (70-99) H 141 mg/dL (70-99) H Current Medications: Meds: Laboratory Tests Test 03/16/21 07:40 03/16/21 12:03 Glucose (Fingerstick) 168 mg/dL 141 mg/dL Current Medications Medications (Trade) Dose Ordered Sig/Cierra Route PRN Reason Start Time Stop Time Status Last Admin Dose Admin Acetaminophen (Tylenol) 650 mg PRN Q6HRS PRN PO MILD PAIN / TEMP > 100.3'F 03/12/21 18:15 Multi-Ingredient Ointment (Analgesic [place]) 1 kory PRN QID PRN TP MUSCLE PAIN 03/12/21 18:15 Al Hydroxide/Mg Hydroxide (Mylanta Plus Xs) 15 ml PRN AFTMEALHC PRN PO DYSPEPSIA 03/12/21 18:15 Magnesium Hydroxide (Milk Of Magnesia) 2,400 mg PRN QHS PRN PO CONSTIPATION 03/12/21 18:15 Rivastigmine (Exelon 13.3mg) 1 patch DAILY TD 03/13/21 09:00 03/16/21 08:06 Gabapentin (Neurontin) 300 mg BID PO 03/12/21 21:00 03/16/21 21:13 Memantine (Namenda) 10 mg BID PO 03/12/21 21:00 03/16/21 21:13 Mirtazapine (Remeron) 7.5 mg DAILY PO 03/13/21 09:00 03/15/21 12:40 DC 03/15/21 08:18 Venlafaxine HCl (Effexor) 50 mg TID PO 03/13/21 09:00 03/14/21 17:30 DC 03/14/21 17:17 Docusate Sodium (Colace) 100 mg BID PO 03/13/21 09:00 03/15/21 10:48 DC 03/15/21 08:19 Metformin HCl (Glucophage) 1,000 mg BIDWMEALS PO 03/13/21 08:00 03/16/21 16:10 Olanzapine (ZyPREXA ZYDIS) 2.5 mg PRN Q2HR PRN PO PSYCHOSIS 03/13/21 07:30 Trazodone HCl (Desyrel) 50 mg PRN QHS PRN PO INSOMNIA 03/13/21 07:30 03/15/21 19:59 Sertraline HCl (Zoloft) 50 mg DAILY PO 03/15/21 09:00 03/16/21 08:06 Mirtazapine (Remeron) 7.5 mg HS PO 03/16/21 21:00 03/16/21 21:13 Divalproex Sodium (Depakote Sprinkles) 125 mg 0900,1700 PO 03/17/21 09:00 Current Medications Medications (Trade) Dose Ordered Sig/Cierra Route PRN Reason Start Time Stop Time Status Last Admin Dose Admin Mirtazapine (Remeron) 7.5 mg HS PO 03/16/21 21:00 03/16/21 21:13 I have reviewed the current psychotropics carefully including drug interactions. Risk benefit ratio favors no change other than as noted in my dictated progress note. 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
[2021-03-17 05:56] VITALS: BP 112/74
[2021-03-17] MEDS: DIVALPROEX 125 MG CAP.SPRINK PO SCH ×2 (12:08→17:00)
[2021-03-17] MEDS: GABAPENTIN 300 MG CAPSULE. PO SCH ×2 (12:08→20:09)
[2021-03-17] MEDS: metFORMIN 500 MG TABLET PO SCH ×2 (12:08→17:00)
[2021-03-17] MEDS: MEMANTINE 10 MG TABLET. PO SCH (12:08)
[2021-03-17] MEDS: SERTRALINE 25 MG TABLET. PO SCH (12:08)
[2021-03-17] MEDS: RIVASTIGMINE 13.3MG PATCH. TD SCH (12:09)
[2021-03-17 15:42] VITALS: BP 116/77
[2021-03-17] MEDS: AMOXICILLIN 250 MG CAPSULE PO SCH (20:02)
[2021-03-17] MEDS: traZODone 50 MG TABLET. PO PRN (20:02)
[2021-03-17] MEDS: MIRTAZAPINE 7.5 MG TABLET. PO SCH (20:09)
--- NOTE | 2021-03-17 22:04 | PDOC ---
Exam Note: Da Note: Please also refer to the separate dictated note~for this date of service dictated separately.~Patient seen individually. Discussed the patient with Nursing staff reviewed the chart.~Reviewed interim history and current functioning. Reviewed vital signs,~Labs/ Radiology~and current medications noted below. Continue current treatment with the changes noted in the dictated addendum note Assessment: Vital Signs/I&O: Vital Signs Date Time Temp Pulse Resp B/P (MAP) Pulse Ox O2 Delivery O2 Flow Rate FiO2 03/17/21 15:42 97.7 77 18 116/77 (90) 94 03/16/21 06:02 Room Air I & O 03/16/21 03/16/21 03/17/21 15:00 23:00 07:00 Intake Total 480 ml 600 ml Balance 480 ml 600 ml Labs: Laboratory Tests Test 03/17/21 07:35 Glucose (Fingerstick) 152 mg/dL (70-99) H Current Medications: Meds: Laboratory Tests Test 03/17/21 07:35 Glucose (Fingerstick) 152 mg/dL Current Medications Medications (Trade) Dose Ordered Sig/Cierra Route PRN Reason Start Time Stop Time Status Last Admin Dose Admin Acetaminophen (Tylenol) 650 mg PRN Q6HRS PRN PO MILD PAIN / TEMP > 100.3'F 03/12/21 18:15 Multi-Ingredient Ointment (Analgesic [place]) 1 kory PRN QID PRN TP MUSCLE PAIN 03/12/21 18:15 Al Hydroxide/Mg Hydroxide (Mylanta Plus Xs) 15 ml PRN AFTMEALHC PRN PO DYSPEPSIA 03/12/21 18:15 Magnesium Hydroxide (Milk Of Magnesia) 2,400 mg PRN QHS PRN PO CONSTIPATION 03/12/21 18:15 03/17/21 21:27 Rivastigmine (Exelon 13.3mg) 1 patch DAILY TD 03/13/21 09:00 03/17/21 16:13 DC 03/17/21 12:09 Gabapentin (Neurontin) 300 mg BID PO 03/12/21 21:00 03/17/21 20:09 Memantine (Namenda) 10 mg BID PO 03/12/21 21:00 03/17/21 16:13 DC 03/17/21 12:08 Mirtazapine (Remeron) 7.5 mg DAILY PO 03/13/21 09:00 03/15/21 12:40 DC 03/15/21 08:18 Venlafaxine HCl (Effexor) 50 mg TID PO 03/13/21 09:00 03/14/21 17:30 DC 03/14/21 17:17 Docusate Sodium (Colace) 100 mg BID PO 03/13/21 09:00 03/15/21 10:48 DC 03/15/21 08:19 Metformin HCl (Glucophage) 1,000 mg BIDWMEALS PO 03/13/21 08:00 03/17/21 17:00 Olanzapine (ZyPREXA ZYDIS) 2.5 mg PRN Q2HR PRN PO PSYCHOSIS 03/13/21 07:30 Trazodone HCl (Desyrel) 50 mg PRN QHS PRN PO INSOMNIA 03/13/21 07:30 03/17/21 20:02 Sertraline HCl (Zoloft) 50 mg DAILY PO 03/15/21 09:00 03/17/21 16:13 DC 03/17/21 12:08 Mirtazapine (Remeron) 7.5 mg HS PO 03/16/21 21:00 03/17/21 20:09 Divalproex Sodium (Depakote Sprinkles) 125 mg 0900,1700 PO 03/17/21 09:00 03/17/21 17:00 Amoxicillin (Amoxil) 500 mg [id number] PO 03/17/21 21:00 03/24/21 21:00 03/17/21 20:02 Sertraline HCl (Zoloft) 75 mg DAILY PO 03/18/21 09:00 Current Medications Medications (Trade) Dose Ordered Sig/Cierra Route PRN Reason Start Time Stop Time Status Last Admin Dose Admin Divalproex Sodium (Depakote Sprinkles) 125 mg 0900,1700 PO 03/17/21 09:00 03/17/21 17:00 Amoxicillin (Amoxil) 500 mg [id number] PO 03/17/21 21:00 03/24/21 21:00 03/17/21 20:02 I have reviewed the current psychotropics carefully including drug interactions. Risk benefit ratio favors no change other than as noted in my dictated progress note. 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
[2021-03-18 05:45] VITALS: BP 113/76
[2021-03-18 09:55] VITALS: BP 112/76
[2021-03-18] MEDS: SERTRALINE 25 MG TABLET. PO SCH (11:40)
[2021-03-18] MEDS: DIVALPROEX 125 MG CAP.SPRINK PO SCH ×2 (11:41→18:21)
[2021-03-18] MEDS: AMOXICILLIN 250 MG CAPSULE PO SCH ×3 (11:41→20:05)
[2021-03-18] MEDS: metFORMIN 500 MG TABLET PO SCH ×2 (11:41→18:21)
[2021-03-18] MEDS: GABAPENTIN 300 MG CAPSULE. PO SCH ×2 (11:41→20:05)
[2021-03-18 16:08] VITALS: BP 130/83
--- NOTE | 2021-03-18 18:44 | CONS ---
DATE OF CONSULTATION: 03/17/2021 NEURO CONSULT REFERRING PHYSICIAN: Dr. Rosas REASON FOR CONSULTATION: Rule out seizure. HISTORY OF PRESENT ILLNESS: This is a 65-year-old right-handed male, who has had a longstanding history of dementia of Alzheimer versus vascular type, was admitted on 03/12/2021 on account of worsening of his behavior, depressions, delusions, and agitation. Neuro consult was requested as the patient woke up for lunch yesterday. He was very confused, lethargic and stumbling on his feet. He did not have any falls or complete loss of consciousness. The patient was not responding to verbal commands. His fingers were purple for a few minutes then he is back to normal. His vital signs at that time were reportedly within normal range. Currently, the patient is drowsy, not able to provide any information. However, he did not answer most of the questions. Neuro consult was requested as the patient has acute onset of mental status changes and a possible brief seizure-like activities. The patient has been on psychotropic medications and Depakote for mood disorder. Due to excessive sedation, Effexor was changed to Zoloft. The patient has not had any seizure activity since admission. PAST MEDICAL HISTORY: Significant for hyperlipidemia, diabetes mellitus type 2, COVID positive status in 08/2020, history of dementia, anxiety disorder and behavior disturbances as described above. FAMILY HISTORY: Not obtainable. SOCIAL HISTORY: The patient has no history of smoking, drinking alcohol or illegal drug use. He is and [facility] CURRENT MEDICATIONS: Depakote sprinkles 125 mg twice daily, mirtazapine 7.5 mg at bedtime, Zoloft 50 mg daily, Exelon patch 13.3 mg 1 patch daily, metformin 1000 mg b.i.d., trazodone 50 mg at bedtime, olanzapine 2.5 mg every 2 hours p.r.n. for agitation, memantine 10 mg twice daily, gabapentin 300 mg twice daily, Tylenol 650 mg q. 6 hours p.r.n. for pain. ALLERGIES: No known drug allergies. REVIEW OF SYSTEMS: A 12-point review of systems was performed as mentioned above, history of present illness, otherwise unremarkable. PHYSICAL EXAMINATION: GENERAL: Well-developed, well-nourished male in no acute distress. VITAL SIGNS: Blood pressure 112/74, respiratory rate 20, pulse is 87, temperature 97.9, oxygen saturation 95% on room air. HEENT: Normocephalic, atraumatic, otherwise unremarkable. NECK: Supple. Negative for carotid bruit, lymphadenopathy or thyromegaly. LUNGS: Clear to A and P. HEART: Regular rate and rhythm. Normal S1, S2. ABDOMEN: Soft. Bowel sounds positive. EXTREMITIES: Negative for cyanosis, clubbing or edema. NEUROLOGICAL: Mental status: The patient is drowsy, but arousable, but he does not follow any commands. His speech is low volume, but not able to communicate at this time and answer any questions. Further evaluation of his mental status is limited because of underlying severe dementia. Cranial nerves: Pupils are equal and reactive to light and accommodation. The extraocular movements are intact. There is no nystagmus. There is no facial motor or sensory deficit. Hearing appeared to be intact. Further evaluation is limited at this time. Motor examination: No focal muscle bulk wasting. The tone is slightly increased. The strength is 4/5 throughout. Sensory examination revealed normal pinprick and light touch senses. Deep tendon reflexes were asymmetric and hypoactive with absent Achilles responses. Gait not tested. LABORATORY DATA: From 03/13/2021 revealed white blood cells of 8.7, hemoglobin 15.7, hematocrit 48, platelet count 165,000. Chemistry revealed sodium of 140, potassium 3.6, chloride 104, CO2 of 28, BUN 20, creatinine 1, glucose 152. Hemoglobin A1c is 7.3. Liver enzymes not elevated. Lipid profile revealed high cholesterol and high LDL and low HDL. Vitamin D is low at 27.8. Thyroid profile is normal. Urinalysis performed on 03/14/2021 revealed evidence of urinary tract infections. IMAGING: Head CT scan performed on 03/16/2021 revealed no intracranial hemorrhage or acute changes. IMPRESSION: 1. Acute mental status changes, presented with excessive drowsiness and sedation, probably due to medication side effects. 2. Advanced dementia of Alzheimer versus vascular type. 3. Multiple medical problems include hyperlipidemia, diabetes mellitus type 2 and history of a positive COVID, anxiety disorder, behavior disturbances. RECOMMENDATIONS: 1. Avoid excessive sedation. 2. Continue with current medical and psychiatric care. LALA/DELIA DR: MEENA/will TID: [id number]
[2021-03-18] MEDS: MIRTAZAPINE 7.5 MG TABLET. PO SCH (20:05)
--- NOTE | 2021-03-18 21:55 | PDOC ---
Exam Note: Da Note: Please also refer to the separate dictated note~for this date of service dictated separately.~Patient seen individually. Discussed the patient with Nursing staff reviewed the chart.~Reviewed interim history and current functioning. Reviewed vital signs,~Labs/ Radiology~and current medications noted below. Continue current treatment with the changes noted in the dictated addendum note Assessment: Vital Signs/I&O: Vital Signs Date Time Temp Pulse Resp B/P (MAP) Pulse Ox O2 Delivery O2 Flow Rate FiO2 03/18/21 16:08 98.8 82 16 130/83 (99) 96 03/16/21 06:02 Room Air I & O 03/17/21 03/17/21 03/18/21 14:59 22:59 06:59 Intake Total 360 ml 480 ml Balance 360 ml 480 ml Labs: Laboratory Tests Test 03/18/21 07:52 Glucose (Fingerstick) 164 mg/dL (70-99) H Current Medications: Meds: Laboratory Tests Test 03/18/21 07:52 Glucose (Fingerstick) 164 mg/dL Current Medications Medications (Trade) Dose Ordered Sig/Cierra Route PRN Reason Start Time Stop Time Status Last Admin Dose Admin Acetaminophen (Tylenol) 650 mg PRN Q6HRS PRN PO MILD PAIN / TEMP > 100.3'F 03/12/21 18:15 Multi-Ingredient Ointment (Analgesic [place]) 1 kory PRN QID PRN TP MUSCLE PAIN 03/12/21 18:15 Al Hydroxide/Mg Hydroxide (Mylanta Plus Xs) 15 ml PRN AFTMEALHC PRN PO DYSPEPSIA 03/12/21 18:15 Magnesium Hydroxide (Milk Of Magnesia) 2,400 mg PRN QHS PRN PO CONSTIPATION 03/12/21 18:15 03/17/21 21:27 Rivastigmine (Exelon 13.3mg) 1 patch DAILY TD 03/13/21 09:00 03/17/21 16:13 DC 03/17/21 12:09 Gabapentin (Neurontin) 300 mg BID PO 03/12/21 21:00 03/18/21 20:05 Memantine (Namenda) 10 mg BID PO 03/12/21 21:00 03/17/21 16:13 DC 03/17/21 12:08 Mirtazapine (Remeron) 7.5 mg DAILY PO 03/13/21 09:00 03/15/21 12:40 DC 03/15/21 08:18 Venlafaxine HCl (Effexor) 50 mg TID PO 03/13/21 09:00 03/14/21 17:30 DC 03/14/21 17:17 Docusate Sodium (Colace) 100 mg BID PO 03/13/21 09:00 03/15/21 10:48 DC 03/15/21 08:19 Metformin HCl (Glucophage) 1,000 mg BIDWMEALS PO 03/13/21 08:00 03/18/21 18:21 Olanzapine (ZyPREXA ZYDIS) 2.5 mg PRN Q2HR PRN PO PSYCHOSIS 03/13/21 07:30 Trazodone HCl (Desyrel) 50 mg PRN QHS PRN PO INSOMNIA 03/13/21 07:30 03/17/21 20:02 Sertraline HCl (Zoloft) 50 mg DAILY PO 03/15/21 09:00 03/17/21 16:13 DC 03/17/21 12:08 Mirtazapine (Remeron) 7.5 mg HS PO 03/16/21 21:00 03/18/21 20:05 Divalproex Sodium (Depakote Sprinkles) 125 mg 0900,1700 PO 03/17/21 09:00 03/18/21 18:21 Amoxicillin (Amoxil) 500 mg [id number] PO 03/17/21 21:00 03/24/21 21:00 03/18/21 20:05 Sertraline HCl (Zoloft) 75 mg DAILY PO 03/18/21 09:00 03/18/21 11:40 Current Medications Medications (Trade) Dose Ordered Sig/Cierra Route PRN Reason Start Time Stop Time Status Last Admin Dose Admin Sertraline HCl (Zoloft) 75 mg DAILY PO 03/18/21 09:00 03/18/21 11:40 I have reviewed the current psychotropics carefully including drug interactions. Risk benefit ratio favors no change other than as noted in my dictated progress note. Diagnosis: Problems: (1) Major neurocognitive disorder (2) Anxiety disorder (3) Dementia, vascular, with delusions (4) Dementia, vascular, with depression (5) Dementia in Alzheimer's disease with delusions (6) Dementia in Alzheimer's disease with depression (7) Impulse control disorder (8) Dementia with behavioral disturbance BRANDY STEVENS MD Mar 18, 2021 21:55
[2021-03-19 05:49] VITALS: BP 123/72
[2021-03-19 06:46] LABS: BASO % 0 % (0-3); EOS # 0.1 x10^3/uL (0.0-0.7); EOS % 1 % (0-3); HEMATOCRIT 43.8 % (39.0-53.0); HEMOGLOBIN 14.8 g/dL (13.0-17.5); LYMPH # 1.4 x10^3/uL (1.0-4.8); LYMPH % 13 % (24-48); MEAN CORPUSCULAR HEMOGLOBIN 30 pg (25-35); MEAN CORPUSCULAR HGB CONC 34 g/dL (31-37); MEAN CORPUSCULAR VOLUME 88 fL (79-100); MONO # 1.1 x10^3/uL (0.0-1.1); MONO % 11 % (0-9); NEUT # 8.1 x10^3uL (1.8-7.7); NEUT % 75 % (31-73); PLATELET COUNT 131 x10^3/uL (140-400); RED CELL DISTRIBUTION WIDTH 13.3 % (11.5-14.5); WHITE BLOOD COUNT 10.7 x10^3/uL (4.0-11.0)
--- NOTE | 2021-03-19 06:53 | PDOC ---
Exam Note: Da Note: This note is a late entry for 03/16/2021 covers elements not covered in my initial note. Subjective: The patient was seen individually in the evening of 03/16/2021 with Neha SHAW, discussed and reviewed the chart. The patient slept 7 hours previous night. He has been confused in the morning. He took a nap later in the morning, woke up in the afternoon and then was more confused. He appeared quite perplexed per nursing report. He had another nap, then woke up and was much clearer after that. There was a question whether he had had a seizure like episode in post-ictal phase. We did do CT head which is unremarkable and we have consulted Dr. Whitfield, Neurology. We are also starting Depakote Sprinkle 125 mg 9 a.m. and 5 p.m. with a check of CBC, CMP, valproic acid level in 3 days both for his behavioral dyscontrol and questionable seizure control. Review of Systems: Impaired ambulation. No CV, , pulmonary, eye system symptoms on review. Unsteady in his gait. Reliability poor. Mental Status Exam: The patient is oriented to himself. Insight and judgment, recent and remote memory, attention and concentration, fund of knowledge is poor consistent with his diagnoses. Laboratory Data: Reviewed. His blood sugars, rest of the labs, vital signs were all unremarkable and he was reviewed by Dr. Zambrano. Impression: Major neurocognitive disorder Alzheimer vascular with delusion, depression, behavioral disturbance. Impulse control disorder unspecified. Anxiety disorder unspecified. Plan: No change from initial note other than what is noted above. Assessment: Vital Signs/I&O: Vital Signs Date Time Temp Pulse Resp B/P (MAP) Pulse Ox O2 Delivery O2 Flow Rate FiO2 03/19/21 05:49 98.1 88 20 123/72 (89) 96 03/16/21 06:02 Room Air I & O 03/18/21 03/18/21 03/19/21 15:00 23:00 07:00 Intake Total 240 ml 0 ml Balance 240 ml 0 ml Labs: Laboratory Tests Test 03/18/21 07:52 Glucose (Fingerstick) 164 mg/dL (70-99) H Current Medications: Meds: Laboratory Tests Test 03/18/21 07:52 Glucose (Fingerstick) 164 mg/dL Current Medications Medications (Trade) Dose Ordered Sig/Cierra Route PRN Reason Start Time Stop Time Status Last Admin Dose Admin Acetaminophen (Tylenol) 650 mg PRN Q6HRS PRN PO MILD PAIN / TEMP > 100.3'F 03/12/21 18:15 Multi-Ingredient Ointment (Analgesic [place]) 1 kory PRN QID PRN TP MUSCLE PAIN 03/12/21 18:15 Al Hydroxide/Mg Hydroxide (Mylanta Plus Xs) 15 ml PRN AFTMEALHC PRN PO DYSPEPSIA 03/12/21 18:15 Magnesium Hydroxide (Milk Of Magnesia) 2,400 mg PRN QHS PRN PO CONSTIPATION 03/12/21 18:15 03/17/21 21:27 Rivastigmine (Exelon 13.3mg) 1 patch DAILY TD 03/13/21 09:00 03/17/21 16:13 DC 03/17/21 12:09 Gabapentin (Neurontin) 300 mg BID PO 03/12/21 21:00 03/18/21 20:05 Memantine (Namenda) 10 mg BID PO 03/12/21 21:00 03/17/21 16:13 DC 03/17/21 12:08 Mirtazapine (Remeron) 7.5 mg DAILY PO 03/13/21 09:00 03/15/21 12:40 DC 03/15/21 08:18 Venlafaxine HCl (Effexor) 50 mg TID PO 03/13/21 09:00 03/14/21 17:30 DC 03/14/21 17:17 Docusate Sodium (Colace) 100 mg BID PO 03/13/21 09:00 03/15/21 10:48 DC 03/15/21 08:19 Metformin HCl (Glucophage) 1,000 mg BIDWMEALS PO 03/13/21 08:00 03/18/21 18:21 Olanzapine (ZyPREXA ZYDIS) 2.5 mg PRN Q2HR PRN PO PSYCHOSIS 03/13/21 07:30 Trazodone HCl (Desyrel) 50 mg PRN QHS PRN PO INSOMNIA 03/13/21 07:30 03/17/21 20:02 Sertraline HCl (Zoloft) 50 mg DAILY PO 03/15/21 09:00 03/17/21 16:13 DC 03/17/21 12:08 Mirtazapine (Remeron) 7.5 mg HS PO 03/16/21 21:00 03/18/21 20:05 Divalproex Sodium (Depakote Sprinkles) 125 mg 0900,1700 PO 03/17/21 09:00 03/18/21 18:21 Amoxicillin (Amoxil) 500 mg [id number] PO 03/17/21 21:00 03/24/21 21:00 03/18/21 20:05 Sertraline HCl (Zoloft) 75 mg DAILY PO 03/18/21 09:00 03/18/21 11:40 Current Medications Medications (Trade) Dose Ordered Sig/Cierra Route PRN Reason Start Time Stop Time Status Last Admin Dose Admin Sertraline HCl (Zoloft) 75 mg DAILY PO 03/18/21 09:00 03/18/21 11:40 I have reviewed the current psychotropics carefully including drug interactions. Risk benefit ratio favors no change other than as noted in my dictated progress note. Diagnosis: Problems: (1) Dementia with behavioral disturbance (2) Major neurocognitive disorder (3) Anxiety disorder (4) Dementia, vascular, with delusions (5) Dementia, vascular, with depression (6) Dementia in Alzheimer's disease with delusions (7) Dementia in Alzheimer's disease with depression (8) Impulse control disorder BRANDY STEVENS MD Mar 19, 2021 06:53
[2021-03-19 06:54] LABS: ALBUMIN/GLOBULIN RATIO 0.7 (1.0-1.7); CALCIUM 9.1 mg/dL (8.5-10.1); CREATININE 1.1 mg/dL (0.7-1.3); GFR 67.6; POTASSIUM 3.9 mmol/L (3.5-5.1); TOTAL BILIRUBIN 0.8 mg/dL (0.2-1.0); TOTAL PROTEIN 7.4 g/dL (6.4-8.2)
--- NOTE | 2021-03-19 07:15 | PDOC ---
Exam Note: Da Note: This note is a late entry for 03/17/2021 covers elements not covered in my initial note. Subjective: The patient was seen individually in the evening of 03/17/2021 with Antonina SHAW, discussed and reviewed the chart. The patient slept 6-3/4 hours previous night. He slept in, in the morning. No p.r.n.s. have been given. He remains confused but has not had any more episodes of sedation, which was quite significant almost like post-ictal but he has been seen by Dr. Whitfield who does not believe it was post-ictal per nursing report. Review of Systems: Impaired ambulation. No CV, , pulmonary, eye system symptoms on review. Unsteady in his gait. Mental Status Exam: The patient is oriented to himself. Insight and judgment, recent and remote memory, attention and concentration, fund of knowledge is poor consistent with his diagnoses. Laboratory Data: Reviewed. His blood sugars, rest of the labs, vital signs were all unremarkable and he was reviewed by Dr. Zambrano. Impression: Major neurocognitive disorder Alzheimer vascular with delusion, depression, behavioral disturbance. Impulse control disorder unspecified. Anxiety disorder unspecified. Plan: Stop Namenda and Exelon patch since they probably have a little benefit at this stage of his vascular dementia. Increase Zoloft to 75 mg a day. Maintain Remeron. Continue Neurontin and he is on Zyprexa and trazodone p.r.n. and Depakote Sprinkle initiated with labs to be checked on 03/20. Adjust further as clinically indicated. Assessment: Vital Signs/I&O: Vital Signs Date Time Temp Pulse Resp B/P (MAP) Pulse Ox O2 Delivery O2 Flow Rate FiO2 03/19/21 05:49 98.1 88 20 123/72 (89) 96 03/16/21 06:02 Room Air I & O 03/18/21 03/18/21 03/19/21 15:00 23:00 07:00 Intake Total 240 ml 0 ml Balance 240 ml 0 ml Labs: Laboratory Tests Test 03/18/21 07:52 03/19/21 06:05 Glucose (Fingerstick) 164 mg/dL (70-99) H White Blood Count 10.7 x10^3/uL (4.0-11.0) Red Blood Count 5.00 x10^6/uL (4.30-5.70) Hemoglobin 14.8 g/dL (13.0-17.5) Hematocrit 43.8 % (39.0-53.0) Mean Corpuscular Volume 88 fL (79-100) Mean Corpuscular Hemoglobin 30 pg (25-35) Mean Corpuscular Hemoglobin Concent 34 g/dL (31-37) Red Cell Distribution Width 13.3 % (11.5-14.5) Platelet Count 131 x10^3/uL (140-400) L Neutrophils (%) (Auto) 75 % (31-73) H Lymphocytes (%) (Auto) 13 % (24-48) L Monocytes (%) (Auto) 11 % (0-9) H Eosinophils (%) (Auto) 1 % (0-3) Basophils (%) (Auto) 0 % (0-3) Neutrophils # (Auto) 8.1 x10^3uL (1.8-7.7) H Lymphocytes # (Auto) 1.4 x10^3/uL (1.0-4.8) Monocytes # (Auto) 1.1 x10^3/uL (0.0-1.1) Eosinophils # (Auto) 0.1 x10^3/uL (0.0-0.7) Basophils # (Auto) 0.0 x10^3/uL (0.0-0.2) Sodium Level 137 mmol/L (136-145) Potassium Level 3.9 mmol/L (3.5-5.1) Chloride Level 101 mmol/L (98-107) Carbon Dioxide Level 28 mmol/L (21-32) Anion Gap 8 (6-14) Blood Urea Nitrogen 13 mg/dL (8-26) Creatinine 1.1 mg/dL (0.7-1.3) Estimated GFR (Cockcroft-Gault) 67.6 BUN/Creatinine Ratio 12 (6-20) Glucose Level 147 mg/dL (70-99) H Calcium Level 9.1 mg/dL (8.5-10.1) Total Bilirubin 0.8 mg/dL (0.2-1.0) Aspartate Amino Transferase (AST) 20 U/L (15-37) Alanine Aminotransferase (ALT) 26 U/L (16-63) Alkaline Phosphatase 108 U/L (46-116) Total Protein 7.4 g/dL (6.4-8.2) Albumin 3.0 g/dL (3.4-5.0) L Albumin/Globulin Ratio 0.7 (1.0-1.7) L Current Medications: Meds: Laboratory Tests Test 03/18/21 07:52 03/19/21 06:05 Glucose (Fingerstick) 164 mg/dL White Blood Count 10.7 x10^3/uL Red Blood Count 5.00 x10^6/uL Hemoglobin 14.8 g/dL Hematocrit 43.8 % Mean Corpuscular Volume 88 fL Mean Corpuscular Hemoglobin 30 pg Mean Corpuscular Hemoglobin Concent 34 g/dL Red Cell Distribution Width 13.3 % Platelet Count 131 x10^3/uL Neutrophils (%) (Auto) 75 % Lymphocytes (%) (Auto) 13 % Monocytes (%) (Auto) 11 % Eosinophils (%) (Auto) 1 % Basophils (%) (Auto) 0 % Neutrophils # (Auto) 8.1 x10^3uL Lymphocytes # (Auto) 1.4 x10^3/uL Monocytes # (Auto) 1.1 x10^3/uL Eosinophils # (Auto) 0.1 x10^3/uL Basophils # (Auto) 0.0 x10^3/uL Sodium Level 137 mmol/L Potassium Level 3.9 mmol/L Chloride Level 101 mmol/L Carbon Dioxide Level 28 mmol/L Anion Gap 8 Blood Urea Nitrogen 13 mg/dL Creatinine 1.1 mg/dL Estimated GFR (Cockcroft-Gault) 67.6 BUN/Creatinine Ratio 12 Glucose Level 147 mg/dL Calcium Level 9.1 mg/dL Total Bilirubin 0.8 mg/dL Aspartate Amino Transf (AST/SGOT) 20 U/L Alanine Aminotransferase (ALT/SGPT) 26 U/L Alkaline Phosphatase 108 U/L Total Protein 7.4 g/dL Albumin 3.0 g/dL Albumin/Globulin Ratio 0.7 Current Medications Medications (Trade) Dose Ordered Sig/Cierra Route PRN Reason Start Time Stop Time Status Last Admin Dose Admin Acetaminophen (Tylenol) 650 mg PRN Q6HRS PRN PO MILD PAIN / TEMP > 100.3'F 03/12/21 18:15 Multi-Ingredient Ointment (Analgesic [place]) 1 kory PRN QID PRN TP MUSCLE PAIN 03/12/21 18:15 Al Hydroxide/Mg Hydroxide (Mylanta Plus Xs) 15 ml PRN AFTMEALHC PRN PO DYSPEPSIA 03/12/21 18:15 Magnesium Hydroxide (Milk Of Magnesia) 2,400 mg PRN QHS PRN PO CONSTIPATION 03/12/21 18:15 03/17/21 21:27 Rivastigmine (Exelon 13.3mg) 1 patch DAILY TD 03/13/21 09:00 03/17/21 16:13 DC 03/17/21 12:09 Gabapentin (Neurontin) 300 mg BID PO 03/12/21 21:00 03/18/21 20:05 Memantine (Namenda) 10 mg BID PO 03/12/21 21:00 03/17/21 16:13 DC 03/17/21 12:08 Mirtazapine (Remeron) 7.5 mg DAILY PO 03/13/21 09:00 03/15/21 12:40 DC 03/15/21 08:18 Venlafaxine HCl (Effexor) 50 mg TID PO 03/13/21 09:00 03/14/21 17:30 DC 03/14/21 17:17 Docusate Sodium (Colace) 100 mg BID PO 03/13/21 09:00 03/15/21 10:48 DC 03/15/21 08:19 Metformin HCl (Glucophage) 1,000 mg BIDWMEALS PO 03/13/21 08:00 03/18/21 18:21 Olanzapine (ZyPREXA ZYDIS) 2.5 mg PRN Q2HR PRN PO PSYCHOSIS 03/13/21 07:30 Trazodone HCl (Desyrel) 50 mg PRN QHS PRN PO INSOMNIA 03/13/21 07:30 03/17/21 20:02 Sertraline HCl (Zoloft) 50 mg DAILY PO 03/15/21 09:00 03/17/21 16:13 DC 03/17/21 12:08 Mirtazapine (Remeron) 7.5 mg HS PO 03/16/21 21:00 03/18/21 20:05 Divalproex Sodium (Depakote Sprinkles) 125 mg 0900,1700 PO 03/17/21 09:00 03/18/21 18:21 Amoxicillin (Amoxil) 500 mg [id number] PO 03/17/21 21:00 03/24/21 21:00 03/18/21 20:05 Sertraline HCl (Zoloft) 75 mg DAILY PO 03/18/21 09:00 03/18/21 11:40 Current Medications Medications (Trade) Dose Ordered Sig/Cierra Route PRN Reason Start Time Stop Time Status Last Admin Dose Admin Sertraline HCl (Zoloft) 75 mg DAILY PO 03/18/21 09:00 03/18/21 11:40 I have reviewed the current psychotropics carefully including drug interactions. Risk benefit ratio favors no change other than as noted in my dictated progress note. 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
--- NOTE | 2021-03-19 07:37 | PDOC ---
Exam Note: Da Note: This note is a late entry for 03/18/2021 covers elements not covered in my initial note. Subjective: The patient was seen individually in the evening of 03/18/2021 with Neha SHAW, discussed and reviewed the chart. The patient slept 7 hours previous night. He does have UTI, was started on Amoxil. He had a fall at 9.[address] Wayne was consulted. He seemed to have tripped on the frame of the door of his room. No head injury noted. Review of Systems: Impaired ambulation. No CV, , pulmonary, eye system symptoms on review. Gait remains unsteady. Reliability poor. Mental Status Exam: The patient is oriented to himself. Insight and judgment, recent and remote memory, attention and concentration, fund of knowledge is poor consistent with his diagnoses. Laboratory Data: Reviewed. Impression: Major neurocognitive disorder Alzheimer vascular with delusion, depression, behavioral disturbance. Impulse control disorder unspecified. Anxiety disorder unspecified. Plan: No change from initial note. Assessment: Vital Signs/I&O: Vital Signs Date Time Temp Pulse Resp B/P (MAP) Pulse Ox O2 Delivery O2 Flow Rate FiO2 03/19/21 05:49 98.1 88 20 123/72 (89) 96 03/16/21 06:02 Room Air I & O 03/18/21 03/18/21 03/19/21 15:00 23:00 07:00 Intake Total 240 ml 0 ml Balance 240 ml 0 ml Labs: Laboratory Tests Test 03/18/21 07:52 03/19/21 06:05 Glucose (Fingerstick) 164 mg/dL (70-99) H White Blood Count 10.7 x10^3/uL (4.0-11.0) Red Blood Count 5.00 x10^6/uL (4.30-5.70) Hemoglobin 14.8 g/dL (13.0-17.5) Hematocrit 43.8 % (39.0-53.0) Mean Corpuscular Volume 88 fL (79-100) Mean Corpuscular Hemoglobin 30 pg (25-35) Mean Corpuscular Hemoglobin Concent 34 g/dL (31-37) Red Cell Distribution Width 13.3 % (11.5-14.5) Platelet Count 131 x10^3/uL (140-400) L Neutrophils (%) (Auto) 75 % (31-73) H Lymphocytes (%) (Auto) 13 % (24-48) L Monocytes (%) (Auto) 11 % (0-9) H Eosinophils (%) (Auto) 1 % (0-3) Basophils (%) (Auto) 0 % (0-3) Neutrophils # (Auto) 8.1 x10^3uL (1.8-7.7) H Lymphocytes # (Auto) 1.4 x10^3/uL (1.0-4.8) Monocytes # (Auto) 1.1 x10^3/uL (0.0-1.1) Eosinophils # (Auto) 0.1 x10^3/uL (0.0-0.7) Basophils # (Auto) 0.0 x10^3/uL (0.0-0.2) Sodium Level 137 mmol/L (136-145) Potassium Level 3.9 mmol/L (3.5-5.1) Chloride Level 101 mmol/L (98-107) Carbon Dioxide Level 28 mmol/L (21-32) Anion Gap 8 (6-14) Blood Urea Nitrogen 13 mg/dL (8-26) Creatinine 1.1 mg/dL (0.7-1.3) Estimated GFR (Cockcroft-Gault) 67.6 BUN/Creatinine Ratio 12 (6-20) Glucose Level 147 mg/dL (70-99) H Calcium Level 9.1 mg/dL (8.5-10.1) Total Bilirubin 0.8 mg/dL (0.2-1.0) Aspartate Amino Transferase (AST) 20 U/L (15-37) Alanine Aminotransferase (ALT) 26 U/L (16-63) Alkaline Phosphatase 108 U/L (46-116) Total Protein 7.4 g/dL (6.4-8.2) Albumin 3.0 g/dL (3.4-5.0) L Albumin/Globulin Ratio 0.7 (1.0-1.7) L Current Medications: Meds: Laboratory Tests Test 03/18/21 07:52 03/19/21 06:05 Glucose (Fingerstick) 164 mg/dL White Blood Count 10.7 x10^3/uL Red Blood Count 5.00 x10^6/uL Hemoglobin 14.8 g/dL Hematocrit 43.8 % Mean Corpuscular Volume 88 fL Mean Corpuscular Hemoglobin 30 pg Mean Corpuscular Hemoglobin Concent 34 g/dL Red Cell Distribution Width 13.3 % Platelet Count 131 x10^3/uL Neutrophils (%) (Auto) 75 % Lymphocytes (%) (Auto) 13 % Monocytes (%) (Auto) 11 % Eosinophils (%) (Auto) 1 % Basophils (%) (Auto) 0 % Neutrophils # (Auto) 8.1 x10^3uL Lymphocytes # (Auto) 1.4 x10^3/uL Monocytes # (Auto) 1.1 x10^3/uL Eosinophils # (Auto) 0.1 x10^3/uL Basophils # (Auto) 0.0 x10^3/uL Sodium Level 137 mmol/L Potassium Level 3.9 mmol/L Chloride Level 101 mmol/L Carbon Dioxide Level 28 mmol/L Anion Gap 8 Blood Urea Nitrogen 13 mg/dL Creatinine 1.1 mg/dL Estimated GFR (Cockcroft-Gault) 67.6 BUN/Creatinine Ratio 12 Glucose Level 147 mg/dL Calcium Level 9.1 mg/dL Total Bilirubin 0.8 mg/dL Aspartate Amino Transf (AST/SGOT) 20 U/L Alanine Aminotransferase (ALT/SGPT) 26 U/L Alkaline Phosphatase 108 U/L Total Protein 7.4 g/dL Albumin 3.0 g/dL Albumin/Globulin Ratio 0.7 Current Medications Medications (Trade) Dose Ordered Sig/Cierra Route PRN Reason Start Time Stop Time Status Last Admin Dose Admin Acetaminophen (Tylenol) 650 mg PRN Q6HRS PRN PO MILD PAIN / TEMP > 100.3'F 03/12/21 18:15 Multi-Ingredient Ointment (Analgesic [place]) 1 kory PRN QID PRN TP MUSCLE PAIN 03/12/21 18:15 Al Hydroxide/Mg Hydroxide (Mylanta Plus Xs) 15 ml PRN AFTMEALHC PRN PO DYSPEPSIA 03/12/21 18:15 Magnesium Hydroxide (Milk Of Magnesia) 2,400 mg PRN QHS PRN PO CONSTIPATION 03/12/21 18:15 03/17/21 21:27 Rivastigmine (Exelon 13.3mg) 1 patch DAILY TD 03/13/21 09:00 03/17/21 16:13 DC 03/17/21 12:09 Gabapentin (Neurontin) 300 mg BID PO 03/12/21 21:00 03/18/21 20:05 Memantine (Namenda) 10 mg BID PO 03/12/21 21:00 03/17/21 16:13 DC 03/17/21 12:08 Mirtazapine (Remeron) 7.5 mg DAILY PO 03/13/21 09:00 03/15/21 12:40 DC 03/15/21 08:18 Venlafaxine HCl (Effexor) 50 mg TID PO 03/13/21 09:00 03/14/21 17:30 DC 03/14/21 17:17 Docusate Sodium (Colace) 100 mg BID PO 03/13/21 09:00 03/15/21 10:48 DC 03/15/21 08:19 Metformin HCl (Glucophage) 1,000 mg BIDWMEALS PO 03/13/21 08:00 03/18/21 18:21 Olanzapine (ZyPREXA ZYDIS) 2.5 mg PRN Q2HR PRN PO PSYCHOSIS 03/13/21 07:30 Trazodone HCl (Desyrel) 50 mg PRN QHS PRN PO INSOMNIA 03/13/21 07:30 03/17/21 20:02 Sertraline HCl (Zoloft) 50 mg DAILY PO 03/15/21 09:00 03/17/21 16:13 DC 03/17/21 12:08 Mirtazapine (Remeron) 7.5 mg HS PO 03/16/21 21:00 03/18/21 20:05 Divalproex Sodium (Depakote Sprinkles) 125 mg 0900,1700 PO 03/17/21 09:00 03/18/21 18:21 Amoxicillin (Amoxil) 500 mg [id number] PO 03/17/21 21:00 03/24/21 21:00 03/18/21 20:05 Sertraline HCl (Zoloft) 75 mg DAILY PO 03/18/21 09:00 03/18/21 11:40 Current Medications Medications (Trade) Dose Ordered Sig/Cierra Route PRN Reason Start Time Stop Time Status Last Admin Dose Admin Sertraline HCl (Zoloft) 75 mg DAILY PO 03/18/21 09:00 03/18/21 11:40 I have reviewed the current psychotropics carefully including drug interactions. Risk benefit ratio favors no change other than as noted in my dictated progress note. Diagnosis: Problems: (1) Dementia with behavioral disturbance (2) Major neurocognitive disorder (3) Anxiety disorder (4) Dementia, vascular, with delusions (5) Dementia, vascular, with depression (6) Dementia in Alzheimer's disease with delusions (7) Dementia in Alzheimer's disease with depression (8) Impulse control disorder BRANDY STEVENS MD Mar 19, 2021 07:36
[2021-03-19] MEDS: AMOXICILLIN 250 MG CAPSULE PO SCH ×3 (08:31→20:56)
[2021-03-19] MEDS: GABAPENTIN 300 MG CAPSULE. PO SCH ×2 (08:31→20:56)
[2021-03-19] MEDS: DIVALPROEX 125 MG CAP.SPRINK PO SCH ×2 (08:32→17:14)
[2021-03-19] MEDS: metFORMIN 500 MG TABLET PO SCH ×2 (08:32→17:14)
[2021-03-19] MEDS: SERTRALINE 25 MG TABLET. PO SCH (08:32)
[2021-03-19 15:31] VITALS: BP 109/72
[2021-03-19] MEDS: LACTOBACILLUS RHAMNOSUS GG 1 CAPSULE. PO SCH (20:56)
[2021-03-19] MEDS: MIRTAZAPINE 7.5 MG TABLET. PO SCH (20:56)
--- NOTE | 2021-03-19 22:02 | PDOC ---
Exam Note: Da Note: Please also refer to the separate dictated note~for this date of service dictated separately.~Patient seen individually. Discussed the patient with Nursing staff reviewed the chart.~Reviewed interim history and current functioning. Reviewed vital signs,~Labs/ Radiology~and current medications noted below. Continue current treatment with the changes noted in the dictated addendum note Assessment: Vital Signs/I&O: Vital Signs Date Time Temp Pulse Resp B/P (MAP) Pulse Ox O2 Delivery O2 Flow Rate FiO2 03/19/21 15:31 97.6 85 17 109/72 (84) 97 Room Air I & O 03/18/21 03/18/21 03/19/21 15:00 23:00 07:00 Intake Total 240 ml 0 ml Balance 240 ml 0 ml Labs: Laboratory Tests Test 03/19/21 06:05 03/19/21 07:54 White Blood Count 10.7 x10^3/uL (4.0-11.0) Red Blood Count 5.00 x10^6/uL (4.30-5.70) Hemoglobin 14.8 g/dL (13.0-17.5) Hematocrit 43.8 % (39.0-53.0) Mean Corpuscular Volume 88 fL (79-100) Mean Corpuscular Hemoglobin 30 pg (25-35) Mean Corpuscular Hemoglobin Concent 34 g/dL (31-37) Red Cell Distribution Width 13.3 % (11.5-14.5) Platelet Count 131 x10^3/uL (140-400) L Neutrophils (%) (Auto) 75 % (31-73) H Lymphocytes (%) (Auto) 13 % (24-48) L Monocytes (%) (Auto) 11 % (0-9) H Eosinophils (%) (Auto) 1 % (0-3) Basophils (%) (Auto) 0 % (0-3) Neutrophils # (Auto) 8.1 x10^3uL (1.8-7.7) H Lymphocytes # (Auto) 1.4 x10^3/uL (1.0-4.8) Monocytes # (Auto) 1.1 x10^3/uL (0.0-1.1) Eosinophils # (Auto) 0.1 x10^3/uL (0.0-0.7) Basophils # (Auto) 0.0 x10^3/uL (0.0-0.2) Sodium Level 137 mmol/L (136-145) Potassium Level 3.9 mmol/L (3.5-5.1) Chloride Level 101 mmol/L (98-107) Carbon Dioxide Level 28 mmol/L (21-32) Anion Gap 8 (6-14) Blood Urea Nitrogen 13 mg/dL (8-26) Creatinine 1.1 mg/dL (0.7-1.3) Estimated GFR (Cockcroft-Gault) 67.6 BUN/Creatinine Ratio 12 (6-20) Glucose Level 147 mg/dL (70-99) H Calcium Level 9.1 mg/dL (8.5-10.1) Total Bilirubin 0.8 mg/dL (0.2-1.0) Aspartate Amino Transferase (AST) 20 U/L (15-37) Alanine Aminotransferase (ALT) 26 U/L (16-63) Alkaline Phosphatase 108 U/L (46-116) Total Protein 7.4 g/dL (6.4-8.2) Albumin 3.0 g/dL (3.4-5.0) L Albumin/Globulin Ratio 0.7 (1.0-1.7) L Glucose (Fingerstick) 138 mg/dL (70-99) H Current Medications: Meds: Laboratory Tests Test 03/19/21 06:05 03/19/21 07:54 White Blood Count 10.7 x10^3/uL Red Blood Count 5.00 x10^6/uL Hemoglobin 14.8 g/dL Hematocrit 43.8 % Mean Corpuscular Volume 88 fL Mean Corpuscular Hemoglobin 30 pg Mean Corpuscular Hemoglobin Concent 34 g/dL Red Cell Distribution Width 13.3 % Platelet Count 131 x10^3/uL Neutrophils (%) (Auto) 75 % Lymphocytes (%) (Auto) 13 % Monocytes (%) (Auto) 11 % Eosinophils (%) (Auto) 1 % Basophils (%) (Auto) 0 % Neutrophils # (Auto) 8.1 x10^3uL Lymphocytes # (Auto) 1.4 x10^3/uL Monocytes # (Auto) 1.1 x10^3/uL Eosinophils # (Auto) 0.1 x10^3/uL Basophils # (Auto) 0.0 x10^3/uL Sodium Level 137 mmol/L Potassium Level 3.9 mmol/L Chloride Level 101 mmol/L Carbon Dioxide Level 28 mmol/L Anion Gap 8 Blood Urea Nitrogen 13 mg/dL Creatinine 1.1 mg/dL Estimated GFR (Cockcroft-Gault) 67.6 BUN/Creatinine Ratio 12 Glucose Level 147 mg/dL Calcium Level 9.1 mg/dL Total Bilirubin 0.8 mg/dL Aspartate Amino Transf (AST/SGOT) 20 U/L Alanine Aminotransferase (ALT/SGPT) 26 U/L Alkaline Phosphatase 108 U/L Total Protein 7.4 g/dL Albumin 3.0 g/dL Albumin/Globulin Ratio 0.7 Glucose (Fingerstick) 138 mg/dL Current Medications Medications (Trade) Dose Ordered Sig/Cierra Route PRN Reason Start Time Stop Time Status Last Admin Dose Admin Acetaminophen (Tylenol) 650 mg PRN Q6HRS PRN PO MILD PAIN / TEMP > 100.3'F 03/12/21 18:15 Multi-Ingredient Ointment (Analgesic [place]) 1 kory PRN QID PRN TP MUSCLE PAIN 03/12/21 18:15 Al Hydroxide/Mg Hydroxide (Mylanta Plus Xs) 15 ml PRN AFTMEALHC PRN PO DYSPEPSIA 03/12/21 18:15 Magnesium Hydroxide (Milk Of Magnesia) 2,400 mg PRN QHS PRN PO CONSTIPATION 03/12/21 18:15 03/17/21 21:27 Rivastigmine (Exelon 13.3mg) 1 patch DAILY TD 03/13/21 09:00 03/17/21 16:13 DC 03/17/21 12:09 Gabapentin (Neurontin) 300 mg BID PO 03/12/21 21:00 03/19/21 20:56 Memantine (Namenda) 10 mg BID PO 03/12/21 21:00 03/17/21 16:13 DC 03/17/21 12:08 Mirtazapine (Remeron) 7.5 mg DAILY PO 03/13/21 09:00 03/15/21 12:40 DC 03/15/21 08:18 Venlafaxine HCl (Effexor) 50 mg TID PO 03/13/21 09:00 03/14/21 17:30 DC 03/14/21 17:17 Docusate Sodium (Colace) 100 mg BID PO 03/13/21 09:00 03/15/21 10:48 DC 03/15/21 08:19 Metformin HCl (Glucophage) 1,000 mg BIDWMEALS PO 03/13/21 08:00 03/19/21 17:14 Olanzapine (ZyPREXA ZYDIS) 2.5 mg PRN Q2HR PRN PO PSYCHOSIS 03/13/21 07:30 Trazodone HCl (Desyrel) 50 mg PRN QHS PRN PO INSOMNIA 03/13/21 07:30 03/17/21 20:02 Sertraline HCl (Zoloft) 50 mg DAILY PO 03/15/21 09:00 03/17/21 16:13 DC 03/17/21 12:08 Mirtazapine (Remeron) 7.5 mg HS PO 03/16/21 21:00 03/19/21 20:56 Divalproex Sodium (Depakote Sprinkles) 125 mg 0900,1700 PO 03/17/21 09:00 03/19/21 17:14 Amoxicillin (Amoxil) 500 mg [id number] PO 03/17/21 21:00 03/24/21 21:00 03/19/21 20:56 Sertraline HCl (Zoloft) 75 mg DAILY PO 03/18/21 09:00 03/19/21 08:32 Lactobacillus Rhamnosus (Culturelle) 1 cap BID PO 03/19/21 21:00 03/19/21 20:56 Current Medications Medications (Trade) Dose Ordered Sig/Cierra Route PRN Reason Start Time Stop Time Status Last Admin Dose Admin Lactobacillus Rhamnosus (Culturelle) 1 cap BID PO 03/19/21 21:00 03/19/21 20:56 I have reviewed the current psychotropics carefully including drug interactions. Risk benefit ratio favors no change other than as noted in my dictated progress note. 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
[2021-03-20 06:30] VITALS: BP 113/82
[2021-03-20] MEDS: metFORMIN 500 MG TABLET PO SCH ×2 (08:51→17:40)
[2021-03-20] MEDS: AMOXICILLIN 250 MG CAPSULE PO SCH ×3 (08:52→20:12)
[2021-03-20] MEDS: LACTOBACILLUS RHAMNOSUS GG 1 CAPSULE. PO SCH ×2 (08:52→20:13)
[2021-03-20] MEDS: DIVALPROEX 125 MG CAP.SPRINK PO SCH ×2 (08:52→17:40)
[2021-03-20] MEDS: GABAPENTIN 300 MG CAPSULE. PO SCH ×2 (08:52→20:13)
[2021-03-20] MEDS: SERTRALINE 25 MG TABLET. PO SCH (08:52)
[2021-03-20 10:38] LABS: BASO % 0 % (0-3); EOS # 0.1 x10^3/uL (0.0-0.7); EOS % 1 % (0-3); HEMATOCRIT 44.3 % (39.0-53.0); HEMOGLOBIN 14.8 g/dL (13.0-17.5); LYMPH # 1.4 x10^3/uL (1.0-4.8); LYMPH % 13 % (24-48); MEAN CORPUSCULAR HEMOGLOBIN 29 pg (25-35); MEAN CORPUSCULAR HGB CONC 33 g/dL (31-37); MEAN CORPUSCULAR VOLUME 88 fL (79-100); MONO # 1.1 x10^3/uL (0.0-1.1); MONO % 10 % (0-9); NEUT % 76 % (31-73); PLATELET COUNT 132 x10^3/uL (140-400); RED BLOOD COUNT 5.04 x10^6/uL (4.30-5.70); RED CELL DISTRIBUTION WIDTH 13.4 % (11.5-14.5); WHITE BLOOD COUNT 10.5 x10^3/uL (4.0-11.0)
[2021-03-20 10:57] LABS: ALBUMIN 2.9 g/dL (3.4-5.0); ALBUMIN/GLOBULIN RATIO 0.6 (1.0-1.7); ALK PHOS 111 U/L (46-116); ALT (SGPT) 20 U/L (16-63); ANION GAP 7 (6-14); AST (SGOT) 19 U/L (15-37); BLOOD UREA NITROGEN 16 mg/dL (8-26); BUN/CREATININE RATIO 15 (6-20); CALCIUM 9.1 mg/dL (8.5-10.1); CARBON DIOXIDE 28 mmol/L (21-32); CHLORIDE 102 mmol/L (98-107); CREATININE 1.1 mg/dL (0.7-1.3); GFR 67.6; GLUCOSE 161 mg/dL (70-99); POTASSIUM 4.2 mmol/L (3.5-5.1); SODIUM 137 mmol/L (136-145); TOTAL BILIRUBIN 0.5 mg/dL (0.2-1.0); TOTAL PROTEIN 7.5 g/dL (6.4-8.2)
[2021-03-20 10:59] LABS: VAL ACID 17 mcg/mL (50-100)
[2021-03-20 15:46] VITALS: BP 116/77
[2021-03-20] MEDS: MIRTAZAPINE 7.5 MG TABLET. PO SCH (20:13)
--- NOTE | 2021-03-20 21:53 | PDOC ---
Exam Note: Da Note: Please also refer to the separate dictated note~for this date of service dictated separately.~Patient seen individually. Discussed the patient with Nursing staff reviewed the chart.~Reviewed interim history and current functioning. Reviewed vital signs,~Labs/ Radiology~and current medications noted below. Continue current treatment with the changes noted in the dictated addendum note Assessment: Vital Signs/I&O: Vital Signs Date Time Temp Pulse Resp B/P (MAP) Pulse Ox O2 Delivery O2 Flow Rate FiO2 03/20/21 15:46 96.9 84 18 116/77 (90) 97 03/19/21 15:31 Room Air I & O 03/19/21 03/19/21 03/20/21 15:00 23:00 07:00 Intake Total 240 ml 240 ml 120 ml Balance 240 ml 240 ml 120 ml Labs: Laboratory Tests Test 03/20/21 07:41 03/20/21 09:55 Glucose (Fingerstick) 164 mg/dL (70-99) H White Blood Count 10.5 x10^3/uL (4.0-11.0) Red Blood Count 5.04 x10^6/uL (4.30-5.70) Hemoglobin 14.8 g/dL (13.0-17.5) Hematocrit 44.3 % (39.0-53.0) Mean Corpuscular Volume 88 fL (79-100) Mean Corpuscular Hemoglobin 29 pg (25-35) Mean Corpuscular Hemoglobin Concent 33 g/dL (31-37) Red Cell Distribution Width 13.4 % (11.5-14.5) Platelet Count 132 x10^3/uL (140-400) L Neutrophils (%) (Auto) 76 % (31-73) H Lymphocytes (%) (Auto) 13 % (24-48) L Monocytes (%) (Auto) 10 % (0-9) H Eosinophils (%) (Auto) 1 % (0-3) Basophils (%) (Auto) 0 % (0-3) Neutrophils # (Auto) 8.0 x10^3uL (1.8-7.7) H Lymphocytes # (Auto) 1.4 x10^3/uL (1.0-4.8) Monocytes # (Auto) 1.1 x10^3/uL (0.0-1.1) Eosinophils # (Auto) 0.1 x10^3/uL (0.0-0.7) Basophils # (Auto) 0.0 x10^3/uL (0.0-0.2) Sodium Level 137 mmol/L (136-145) Potassium Level 4.2 mmol/L (3.5-5.1) Chloride Level 102 mmol/L (98-107) Carbon Dioxide Level 28 mmol/L (21-32) Anion Gap 7 (6-14) Blood Urea Nitrogen 16 mg/dL (8-26) Creatinine 1.1 mg/dL (0.7-1.3) Estimated GFR (Cockcroft-Gault) 67.6 BUN/Creatinine Ratio 15 (6-20) Glucose Level 161 mg/dL (70-99) H Calcium Level 9.1 mg/dL (8.5-10.1) Total Bilirubin 0.5 mg/dL (0.2-1.0) Aspartate Amino Transferase (AST) 19 U/L (15-37) Alanine Aminotransferase (ALT) 20 U/L (16-63) Alkaline Phosphatase 111 U/L (46-116) Total Protein 7.5 g/dL (6.4-8.2) Albumin 2.9 g/dL (3.4-5.0) L Albumin/Globulin Ratio 0.6 (1.0-1.7) L Valproic Acid Level 17 mcg/mL (50-100) L Valproic Acid Last Dose Date 03/19/2021 Valproic Acid Last Dose Time 1700 Current Medications: Meds: Laboratory Tests Test 03/20/21 07:41 03/20/21 09:55 Glucose (Fingerstick) 164 mg/dL White Blood Count 10.5 x10^3/uL Red Blood Count 5.04 x10^6/uL Hemoglobin 14.8 g/dL Hematocrit 44.3 % Mean Corpuscular Volume 88 fL Mean Corpuscular Hemoglobin 29 pg Mean Corpuscular Hemoglobin Concent 33 g/dL Red Cell Distribution Width 13.4 % Platelet Count 132 x10^3/uL Neutrophils (%) (Auto) 76 % Lymphocytes (%) (Auto) 13 % Monocytes (%) (Auto) 10 % Eosinophils (%) (Auto) 1 % Basophils (%) (Auto) 0 % Neutrophils # (Auto) 8.0 x10^3uL Lymphocytes # (Auto) 1.4 x10^3/uL Monocytes # (Auto) 1.1 x10^3/uL Eosinophils # (Auto) 0.1 x10^3/uL Basophils # (Auto) 0.0 x10^3/uL Sodium Level 137 mmol/L Potassium Level 4.2 mmol/L Chloride Level 102 mmol/L Carbon Dioxide Level 28 mmol/L Anion Gap 7 Blood Urea Nitrogen 16 mg/dL Creatinine 1.1 mg/dL Estimated GFR (Cockcroft-Gault) 67.6 BUN/Creatinine Ratio 15 Glucose Level 161 mg/dL Calcium Level 9.1 mg/dL Total Bilirubin 0.5 mg/dL Aspartate Amino Transf (AST/SGOT) 19 U/L Alanine Aminotransferase (ALT/SGPT) 20 U/L Alkaline Phosphatase 111 U/L Total Protein 7.5 g/dL Albumin 2.9 g/dL Albumin/Globulin Ratio 0.6 Valproic Acid (Depakene) Level 17 mcg/mL Valproic Acid Last Dose Date 03/19/2021 Valproic Acid Last Dose Time 1700 Current Medications Medications (Trade) Dose Ordered Sig/Cierra Route PRN Reason Start Time Stop Time Status Last Admin Dose Admin Acetaminophen (Tylenol) 650 mg PRN Q6HRS PRN PO MILD PAIN / TEMP > 100.3'F 03/12/21 18:15 03/20/21 05:14 Multi-Ingredient Ointment (Analgesic [place]) 1 kory PRN QID PRN TP MUSCLE PAIN 03/12/21 18:15 Al Hydroxide/Mg Hydroxide (Mylanta Plus Xs) 15 ml PRN AFTMEALHC PRN PO DYSPEPSIA 03/12/21 18:15 Magnesium Hydroxide (Milk Of Magnesia) 2,400 mg PRN QHS PRN PO CONSTIPATION 03/12/21 18:15 03/17/21 21:27 Rivastigmine (Exelon 13.3mg) 1 patch DAILY TD 03/13/21 09:00 03/17/21 16:13 DC 03/17/21 12:09 Gabapentin (Neurontin) 300 mg BID PO 03/12/21 21:00 03/20/21 20:13 Memantine (Namenda) 10 mg BID PO 03/12/21 21:00 03/17/21 16:13 DC 03/17/21 12:08 Mirtazapine (Remeron) 7.5 mg DAILY PO 03/13/21 09:00 03/15/21 12:40 DC 03/15/21 08:18 Venlafaxine HCl (Effexor) 50 mg TID PO 03/13/21 09:00 03/14/21 17:30 DC 03/14/21 17:17 Docusate Sodium (Colace) 100 mg BID PO 03/13/21 09:00 03/15/21 10:48 DC 03/15/21 08:19 Metformin HCl (Glucophage) 1,000 mg BIDWMEALS PO 03/13/21 08:00 03/20/21 17:40 Olanzapine (ZyPREXA ZYDIS) 2.5 mg PRN Q2HR PRN PO PSYCHOSIS 03/13/21 07:30 Trazodone HCl (Desyrel) 50 mg PRN QHS PRN PO INSOMNIA 03/13/21 07:30 03/17/21 20:02 Sertraline HCl (Zoloft) 50 mg DAILY PO 03/15/21 09:00 03/17/21 16:13 DC 03/17/21 12:08 Mirtazapine (Remeron) 7.5 mg HS PO 03/16/21 21:00 03/20/21 20:13 Divalproex Sodium (Depakote Sprinkles) 125 mg 0900,1700 PO 03/17/21 09:00 03/20/21 17:40 Amoxicillin (Amoxil) 500 mg [id number] PO 03/17/21 21:00 03/24/21 21:00 03/20/21 20:12 Sertraline HCl (Zoloft) 75 mg DAILY PO 03/18/21 09:00 03/20/21 08:52 Lactobacillus Rhamnosus (Culturelle) 1 cap BID PO 03/19/21 21:00 03/20/21 20:13 I have reviewed the current psychotropics carefully including drug interactions. Risk benefit ratio favors no change other than as noted in my dictated progress note. Diagnosis: Problems: (1) Dementia with behavioral disturbance (2) Major neurocognitive disorder (3) Anxiety disorder (4) Dementia, vascular, with delusions (5) Dementia, vascular, with depression (6) Dementia in Alzheimer's disease with delusions (7) Dementia in Alzheimer's disease with depression (8) Impulse control disorder BRANDY STEVENS MD Mar 20, 2021 21:52
[2021-03-21 06:12] VITALS: BP 108/68
[2021-03-21] MEDS: AMOXICILLIN 250 MG CAPSULE PO SCH ×3 (08:46→20:16)
[2021-03-21] MEDS: metFORMIN 500 MG TABLET PO SCH ×2 (08:46→16:58)
[2021-03-21] MEDS: DIVALPROEX 125 MG CAP.SPRINK PO SCH ×2 (08:46→16:58)
[2021-03-21] MEDS: SERTRALINE 25 MG TABLET. PO SCH (08:47)
[2021-03-21] MEDS: LACTOBACILLUS RHAMNOSUS GG 1 CAPSULE. PO SCH ×2 (08:47→20:15)
[2021-03-21] MEDS: GABAPENTIN 300 MG CAPSULE. PO SCH ×2 (08:47→20:16)
[2021-03-21 15:51] VITALS: BP 117/78
[2021-03-21] MEDS: MIRTAZAPINE 7.5 MG TABLET. PO SCH (20:16)
--- NOTE | 2021-03-21 22:02 | PDOC ---
Exam Note: Da Note: Please also refer to the separate dictated note~for this date of service dictated separately.~Patient seen individually. Discussed the patient with Nursing staff reviewed the chart.~Reviewed interim history and current functioning. Reviewed vital signs,~Labs/ Radiology~and current medications noted below. Continue current treatment with the changes noted in the dictated addendum note Assessment: Vital Signs/I&O: Vital Signs Date Time Temp Pulse Resp B/P (MAP) Pulse Ox O2 Delivery O2 Flow Rate FiO2 03/21/21 15:51 97.2 77 19 117/78 (91) 98 03/19/21 15:31 Room Air I & O 03/20/21 03/20/21 03/21/21 15:00 23:00 07:00 Intake Total 120 ml 480 ml Balance 120 ml 480 ml Labs: Laboratory Tests Test 03/21/21 08:17 Glucose (Fingerstick) 142 mg/dL (70-99) H Current Medications: Meds: Laboratory Tests Test 03/21/21 08:17 Glucose (Fingerstick) 142 mg/dL Current Medications Medications (Trade) Dose Ordered Sig/Cierra Route PRN Reason Start Time Stop Time Status Last Admin Dose Admin Acetaminophen (Tylenol) 650 mg PRN Q6HRS PRN PO MILD PAIN / TEMP > 100.3'F 03/12/21 18:15 03/20/21 05:14 Multi-Ingredient Ointment (Analgesic [place]) 1 kory PRN QID PRN TP MUSCLE PAIN 03/12/21 18:15 Al Hydroxide/Mg Hydroxide (Mylanta Plus Xs) 15 ml PRN AFTMEALHC PRN PO DYSPEPSIA 03/12/21 18:15 Magnesium Hydroxide (Milk Of Magnesia) 2,400 mg PRN QHS PRN PO CONSTIPATION 03/12/21 18:15 03/17/21 21:27 Rivastigmine (Exelon 13.3mg) 1 patch DAILY TD 03/13/21 09:00 03/17/21 16:13 DC 03/17/21 12:09 Gabapentin (Neurontin) 300 mg BID PO 03/12/21 21:00 03/21/21 20:16 Memantine (Namenda) 10 mg BID PO 03/12/21 21:00 03/17/21 16:13 DC 03/17/21 12:08 Mirtazapine (Remeron) 7.5 mg DAILY PO 03/13/21 09:00 03/15/21 12:40 DC 03/15/21 08:18 Venlafaxine HCl (Effexor) 50 mg TID PO 03/13/21 09:00 03/14/21 17:30 DC 03/14/21 17:17 Docusate Sodium (Colace) 100 mg BID PO 03/13/21 09:00 03/15/21 10:48 DC 03/15/21 08:19 Metformin HCl (Glucophage) 1,000 mg BIDWMEALS PO 03/13/21 08:00 03/21/21 16:58 Olanzapine (ZyPREXA ZYDIS) 2.5 mg PRN Q2HR PRN PO PSYCHOSIS 03/13/21 07:30 Trazodone HCl (Desyrel) 50 mg PRN QHS PRN PO INSOMNIA 03/13/21 07:30 03/17/21 20:02 Sertraline HCl (Zoloft) 50 mg DAILY PO 03/15/21 09:00 03/17/21 16:13 DC 03/17/21 12:08 Mirtazapine (Remeron) 7.5 mg HS PO 03/16/21 21:00 03/21/21 20:16 Divalproex Sodium (Depakote Sprinkles) 125 mg 0900,1700 PO 03/17/21 09:00 03/21/21 16:58 Amoxicillin (Amoxil) 500 mg [id number] PO 03/17/21 21:00 03/24/21 21:00 03/21/21 20:16 Sertraline HCl (Zoloft) 75 mg DAILY PO 03/18/21 09:00 03/21/21 08:47 Lactobacillus Rhamnosus (Culturelle) 1 cap BID PO 03/19/21 21:00 03/21/21 20:15 I have reviewed the current psychotropics carefully including drug interactions. Risk benefit ratio favors no change other than as noted in my dictated progress note. Diagnosis: Problems: (1) Dementia with behavioral disturbance (2) Major neurocognitive disorder (3) Anxiety disorder (4) Dementia, vascular, with delusions (5) Dementia, vascular, with depression (6) Dementia in Alzheimer's disease with delusions (7) Dementia in Alzheimer's disease with depression (8) Impulse control disorder BRANDY STEVENS MD Mar 21, 2021 22:02
--- NOTE | 2021-03-22 06:25 | PDOC ---
Exam Note: Da Note: This note is a late entry for 03/19/2021 covers elements not covered in my initial note. Subjective: The patient was seen individually in the evening of 03/19/2021 with Leigha SHAW, discussed and reviewed the chart. The patient slept 6-1/2 hours previous night. Overall he remains confused. He put himself on the ground but no injuries were noted. He slept in late and later went for lunch and was calmer after that. Review of Systems: Impaired ambulation. No CV, , pulmonary, eye system symptoms on review. Gait remains unsteady. Mental Status Exam: The patient is oriented to himself. Insight and judgment, recent and remote memory, attention and concentration, fund of knowledge is poor consistent with his diagnoses. Laboratory Data: Reviewed. Impression: Major neurocognitive disorder Alzheimer vascular with delusion, depression, behavioral disturbance. Impulse control disorder unspecified. Anxiety disorder unspecified. Plan: No change from initial note. Assessment: Vital Signs/I&O: Vital Signs Date Time Temp Pulse Resp B/P (MAP) Pulse Ox O2 Delivery O2 Flow Rate FiO2 03/21/21 15:51 97.2 77 19 117/78 (91) 98 03/19/21 15:31 Room Air I & O 03/21/21 03/21/21 03/22/21 15:00 23:00 07:00 Intake Total 120 ml 480 ml Balance 120 ml 480 ml Labs: Laboratory Tests Test 03/21/21 08:17 Glucose (Fingerstick) 142 mg/dL (70-99) H Current Medications: Meds: Laboratory Tests Test 03/21/21 08:17 Glucose (Fingerstick) 142 mg/dL Current Medications Medications (Trade) Dose Ordered Sig/Cierra Route PRN Reason Start Time Stop Time Status Last Admin Dose Admin Acetaminophen (Tylenol) 650 mg PRN Q6HRS PRN PO MILD PAIN / TEMP > 100.3'F 03/12/21 18:15 03/20/21 05:14 Multi-Ingredient Ointment (Analgesic [place]) 1 kory PRN QID PRN TP MUSCLE PAIN 03/12/21 18:15 Al Hydroxide/Mg Hydroxide (Mylanta Plus Xs) 15 ml PRN AFTMEALHC PRN PO DYSPEPSIA 03/12/21 18:15 Magnesium Hydroxide (Milk Of Magnesia) 2,400 mg PRN QHS PRN PO CONSTIPATION 03/12/21 18:15 03/17/21 21:27 Rivastigmine (Exelon 13.3mg) 1 patch DAILY TD 03/13/21 09:00 03/17/21 16:13 DC 03/17/21 12:09 Gabapentin (Neurontin) 300 mg BID PO 03/12/21 21:00 03/21/21 20:16 Memantine (Namenda) 10 mg BID PO 03/12/21 21:00 03/17/21 16:13 DC 03/17/21 12:08 Mirtazapine (Remeron) 7.5 mg DAILY PO 03/13/21 09:00 03/15/21 12:40 DC 03/15/21 08:18 Venlafaxine HCl (Effexor) 50 mg TID PO 03/13/21 09:00 03/14/21 17:30 DC 03/14/21 17:17 Docusate Sodium (Colace) 100 mg BID PO 03/13/21 09:00 03/15/21 10:48 DC 03/15/21 08:19 Metformin HCl (Glucophage) 1,000 mg BIDWMEALS PO 03/13/21 08:00 03/21/21 16:58 Olanzapine (ZyPREXA ZYDIS) 2.5 mg PRN Q2HR PRN PO PSYCHOSIS 03/13/21 07:30 Trazodone HCl (Desyrel) 50 mg PRN QHS PRN PO INSOMNIA 03/13/21 07:30 03/17/21 20:02 Sertraline HCl (Zoloft) 50 mg DAILY PO 03/15/21 09:00 03/17/21 16:13 DC 03/17/21 12:08 Mirtazapine (Remeron) 7.5 mg HS PO 03/16/21 21:00 03/21/21 20:16 Divalproex Sodium (Depakote Sprinkles) 125 mg 0900,1700 PO 03/17/21 09:00 03/21/21 16:58 Amoxicillin (Amoxil) 500 mg [id number] PO 03/17/21 21:00 03/24/21 21:00 03/21/21 20:16 Sertraline HCl (Zoloft) 75 mg DAILY PO 03/18/21 09:00 03/21/21 08:47 Lactobacillus Rhamnosus (Culturelle) 1 cap BID PO 03/19/21 21:00 03/21/21 20:15 I have reviewed the current psychotropics carefully including drug interactions. Risk benefit ratio favors no change other than as noted in my dictated progress note. 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
[2021-03-22 06:28] VITALS: BP 119/78
--- NOTE | 2021-03-22 07:07 | PDOC ---
Exam Note: Da Note: This note is a late entry for 03/20/2021 covers elements not covered in my initial note. Subjective: The patient was seen individually in the evening of 03/20/2021 with Garrett SHAW, discussed and reviewed the chart. The patient slept 8 hours previous night. He has been isolative, somewhat withdrawn, and compliant with medications. Review of Systems: Impaired ambulation. No CV, , pulmonary, eye system symptoms on review. Reliability poor. Mental Status Exam: The patient is oriented to himself. Insight and judgment, recent and remote memory, attention and concentration, fund of knowledge is poor consistent with his diagnoses. Laboratory Data: Reviewed. Impression: Major neurocognitive disorder Alzheimer vascular with delusion, depression, behavioral disturbance. Impulse control disorder unspecified. Anxiety disorder unspecified. Plan: No change from initial note. Assessment: Vital Signs/I&O: Vital Signs Date Time Temp Pulse Resp B/P (MAP) Pulse Ox O2 Delivery O2 Flow Rate FiO2 03/22/21 06:28 97.4 73 18 119/78 (92) 95 03/19/21 15:31 Room Air I & O 03/21/21 03/21/21 03/22/21 15:00 23:00 07:00 Intake Total 120 ml 480 ml Balance 120 ml 480 ml Labs: Laboratory Tests Test 03/21/21 08:17 Glucose (Fingerstick) 142 mg/dL (70-99) H Current Medications: Meds: Laboratory Tests Test 03/21/21 08:17 Glucose (Fingerstick) 142 mg/dL Current Medications Medications (Trade) Dose Ordered Sig/Cierra Route PRN Reason Start Time Stop Time Status Last Admin Dose Admin Acetaminophen (Tylenol) 650 mg PRN Q6HRS PRN PO MILD PAIN / TEMP > 100.3'F 03/12/21 18:15 03/20/21 05:14 Multi-Ingredient Ointment (Analgesic [place]) 1 kory PRN QID PRN TP MUSCLE PAIN 03/12/21 18:15 Al Hydroxide/Mg Hydroxide (Mylanta Plus Xs) 15 ml PRN AFTMEALHC PRN PO DYSPEPSIA 03/12/21 18:15 Magnesium Hydroxide (Milk Of Magnesia) 2,400 mg PRN QHS PRN PO CONSTIPATION 03/12/21 18:15 03/17/21 21:27 Rivastigmine (Exelon 13.3mg) 1 patch DAILY TD 03/13/21 09:00 03/17/21 16:13 DC 03/17/21 12:09 Gabapentin (Neurontin) 300 mg BID PO 03/12/21 21:00 03/21/21 20:16 Memantine (Namenda) 10 mg BID PO 03/12/21 21:00 03/17/21 16:13 DC 03/17/21 12:08 Mirtazapine (Remeron) 7.5 mg DAILY PO 03/13/21 09:00 03/15/21 12:40 DC 03/15/21 08:18 Venlafaxine HCl (Effexor) 50 mg TID PO 03/13/21 09:00 03/14/21 17:30 DC 03/14/21 17:17 Docusate Sodium (Colace) 100 mg BID PO 03/13/21 09:00 03/15/21 10:48 DC 03/15/21 08:19 Metformin HCl (Glucophage) 1,000 mg BIDWMEALS PO 03/13/21 08:00 03/21/21 16:58 Olanzapine (ZyPREXA ZYDIS) 2.5 mg PRN Q2HR PRN PO PSYCHOSIS 03/13/21 07:30 Trazodone HCl (Desyrel) 50 mg PRN QHS PRN PO INSOMNIA 03/13/21 07:30 03/17/21 20:02 Sertraline HCl (Zoloft) 50 mg DAILY PO 03/15/21 09:00 03/17/21 16:13 DC 03/17/21 12:08 Mirtazapine (Remeron) 7.5 mg HS PO 03/16/21 21:00 03/21/21 20:16 Divalproex Sodium (Depakote Sprinkles) 125 mg 0900,1700 PO 03/17/21 09:00 03/21/21 16:58 Amoxicillin (Amoxil) 500 mg [id number] PO 03/17/21 21:00 03/24/21 21:00 03/21/21 20:16 Sertraline HCl (Zoloft) 75 mg DAILY PO 03/18/21 09:00 03/21/21 08:47 Lactobacillus Rhamnosus (Culturelle) 1 cap BID PO 03/19/21 21:00 03/21/21 20:15 I have reviewed the current psychotropics carefully including drug interactions. Risk benefit ratio favors no change other than as noted in my dictated progress note. Diagnosis: Problems: (1) Dementia with behavioral disturbance (2) Major neurocognitive disorder (3) Anxiety disorder (4) Dementia, vascular, with delusions (5) Dementia, vascular, with depression (6) Dementia in Alzheimer's disease with delusions (7) Dementia in Alzheimer's disease with depression (8) Impulse control disorder BRANDY STEVENS MD Mar 22, 2021 07:07
[2021-03-22] MEDS: SERTRALINE 25 MG TABLET. PO SCH (07:48)
[2021-03-22] MEDS: GABAPENTIN 300 MG CAPSULE. PO SCH ×2 (07:49→20:52)
[2021-03-22] MEDS: metFORMIN 500 MG TABLET PO SCH ×2 (07:49→16:58)
[2021-03-22] MEDS: AMOXICILLIN 250 MG CAPSULE PO SCH ×3 (07:49→20:52)
[2021-03-22] MEDS: DIVALPROEX 125 MG CAP.SPRINK PO SCH ×2 (07:49→16:58)
[2021-03-22] MEDS: LACTOBACILLUS RHAMNOSUS GG 1 CAPSULE. PO SCH ×2 (07:49→20:52)
--- NOTE | 2021-03-22 07:58 | PDOC ---
Exam Note: Da Note: This note is a late entry for 03/21/2021 covers elements not covered in my initial note. Subjective: The patient was seen individually in the evening of 03/21/2021 with Garrett SHAW, discussed and reviewed the chart. The patient slept 7-3/4 hours previous night. He has had a better day today per nursing report. He is less anxious, restless, less labile in his mood. Review of Systems: Impaired ambulation. No CV, , pulmonary, eye system symptoms on review. Mental Status Exam: The patient is oriented to himself. Insight and judgment, recent and remote memory, attention and concentration, fund of knowledge is poor consistent with his diagnoses. Laboratory Data: Reviewed. Impression: Major neurocognitive disorder Alzheimer vascular with delusion, depression, behavioral disturbance. Impulse control disorder unspecified. Anxiety disorder unspecified. Plan: No change from initial note. Assessment: Vital Signs/I&O: Vital Signs Date Time Temp Pulse Resp B/P (MAP) Pulse Ox O2 Delivery O2 Flow Rate FiO2 03/22/21 06:28 97.4 73 18 119/78 (92) 95 03/19/21 15:31 Room Air I & O 03/21/21 03/21/21 03/22/21 15:00 23:00 07:00 Intake Total 120 ml 480 ml Balance 120 ml 480 ml Labs: Laboratory Tests Test 03/21/21 08:17 03/22/21 07:30 Glucose (Fingerstick) 142 mg/dL (70-99) H 134 mg/dL (70-99) H Current Medications: Meds: Laboratory Tests Test 03/21/21 08:17 03/22/21 07:30 Glucose (Fingerstick) 142 mg/dL 134 mg/dL Current Medications Medications (Trade) Dose Ordered Sig/Cierra Route PRN Reason Start Time Stop Time Status Last Admin Dose Admin Acetaminophen (Tylenol) 650 mg PRN Q6HRS PRN PO MILD PAIN / TEMP > 100.3'F 03/12/21 18:15 03/20/21 05:14 Multi-Ingredient Ointment (Analgesic [place]) 1 kory PRN QID PRN TP MUSCLE PAIN 03/12/21 18:15 Al Hydroxide/Mg Hydroxide (Mylanta Plus Xs) 15 ml PRN AFTMEALHC PRN PO DYSPEPSIA 03/12/21 18:15 Magnesium Hydroxide (Milk Of Magnesia) 2,400 mg PRN QHS PRN PO CONSTIPATION 03/12/21 18:15 03/17/21 21:27 Rivastigmine (Exelon 13.3mg) 1 patch DAILY TD 03/13/21 09:00 03/17/21 16:13 DC 03/17/21 12:09 Gabapentin (Neurontin) 300 mg BID PO 03/12/21 21:00 03/22/21 07:49 Memantine (Namenda) 10 mg BID PO 03/12/21 21:00 03/17/21 16:13 DC 03/17/21 12:08 Mirtazapine (Remeron) 7.5 mg DAILY PO 03/13/21 09:00 03/15/21 12:40 DC 03/15/21 08:18 Venlafaxine HCl (Effexor) 50 mg TID PO 03/13/21 09:00 03/14/21 17:30 DC 03/14/21 17:17 Docusate Sodium (Colace) 100 mg BID PO 03/13/21 09:00 03/15/21 10:48 DC 03/15/21 08:19 Metformin HCl (Glucophage) 1,000 mg BIDWMEALS PO 03/13/21 08:00 03/22/21 07:49 Olanzapine (ZyPREXA ZYDIS) 2.5 mg PRN Q2HR PRN PO PSYCHOSIS 03/13/21 07:30 Trazodone HCl (Desyrel) 50 mg PRN QHS PRN PO INSOMNIA 03/13/21 07:30 03/17/21 20:02 Sertraline HCl (Zoloft) 50 mg DAILY PO 03/15/21 09:00 03/17/21 16:13 DC 03/17/21 12:08 Mirtazapine (Remeron) 7.5 mg HS PO 03/16/21 21:00 03/21/21 20:16 Divalproex Sodium (Depakote Sprinkles) 125 mg 0900,1700 PO 03/17/21 09:00 03/22/21 07:49 Amoxicillin (Amoxil) 500 mg [id number] PO 03/17/21 21:00 03/24/21 21:00 03/22/21 07:49 Sertraline HCl (Zoloft) 75 mg DAILY PO 03/18/21 09:00 03/22/21 07:48 Lactobacillus Rhamnosus (Culturelle) 1 cap BID PO 03/19/21 21:00 03/22/21 07:49 I have reviewed the current psychotropics carefully including drug interactions. Risk benefit ratio favors no change other than as noted in my dictated progress note. 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
--- NOTE | 2021-03-22 14:03 | TX PLAN ---
Interdisciplinary Tx Plan Admission Information Mar 12, 2021 at 15:55 Legal Status (on Admission): Voluntary DPOA/Guardian Name: Lissy Pleitez Contact [facility] Contact Verified Code Status: DNR Allergies: Coded Allergies: No Known Drug Allergies (Unverified , 02/26/19) Diagnoses Primary Diagnosis: Bipolar D/O recent episode, manic Reasons for Admission: Combative, Confusion/Disoriented, Poor impulse control, Other Problem in Patient's Words: His behavior is changing and becoming aggressive Additional Admission Comments: According to the intake, pt was urinating and defecating on the floor, wandering with elopement attempts, pulling fire alarms, hitting staff on the head and in the face, agitated, pacing, and believes he is being stalked Problems Active Problems: wandering confused disorganized Inactive Problems: medication compliance no aggression noted Pt Strengths/Limitations Ability for [place]: Poor Cognitive Functioning/Ability: Poor Communication Skills/Ability: Poor Financial Resources: Fair Insight/Judgement: Poor Intellectual Ability: Poor Physical Health: Poor Social Skills: Poor Stability in Family: Good Stability in School/Work: Poor Verbal Skills: Poor Discharge Criteria Discharge Criteria: No need for close observ., Adequate arrangements @DC, Improved behavior, Improved mood/thought Preliminary Discharge Plan Preliminary DC Plan: Current Living Arrange., Other Special Precautions Fall Risk: Low Initial D/C Plan [facility] Identified Discharge Needs: Pt sister believes that pt will return to placement; however has been told she needs to call and see if other placements have availability. Currently Utilized Resources Currently Utilized Resources/P: Primary Care Physician Identified Problems/Hx/Goals Objectives/Short-Term Goals Short Term Goals: Control abnormal behavior, Dec. Aggression, Dec. Outbursts, Medication Stabilization, Promote Coping Skill Short Term Goals in Patient's: N/A Interventions/Frequency Staff Interventions/Frequency&: Psychiatrist to assess pt at least 3x per week for medication mgmt. Social Work to assess pt at least 2x per week to identify barriers to care and discharge planning goals. Nursing to assess for medication effects, behavior modification and completion of 15 minute checks daily. Encourage participation in group activities (if applicable) or 1:1 engagement based off activity dept goals. 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 I am not sure what I am supposed to do next, but if you can guide me, I'll do what I can. 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 Pt is medication compliant with meds crushed in pudding and continues to be disorganized. Pt is restless and difficult to engage in group activities. Pt needs encouragement in following directions for meals and cares. At this time, pt is in a w/c as he fell last week; will check with PT/OT on recommendations as the team would like to have pt out of the w/c. SW is working with the family and pt current placement to find a Memory Care placement for discharge if possible. SHASTA SAEED Mar 22, 2021 14:03
[2021-03-22] MEDS: MIRTAZAPINE 7.5 MG TABLET. PO SCH (20:52)
--- NOTE | 2021-03-22 21:56 | PDOC ---
Exam Note: Da Note: Please also refer to the separate dictated note~for this date of service dictated separately.~Patient seen individually. Discussed the patient with Nursing staff reviewed the chart.~Reviewed interim history and current functioning. Reviewed vital signs,~Labs/ Radiology~and current medications noted below. Continue current treatment with the changes noted in the dictated addendum note Assessment: Vital Signs/I&O: Vital Signs Date Time Temp Pulse Resp B/P (MAP) Pulse Ox O2 Delivery O2 Flow Rate FiO2 03/22/21 06:28 97.4 73 18 119/78 (92) 95 03/19/21 15:31 Room Air I & O 03/21/21 03/21/21 03/22/21 15:00 23:00 07:00 Intake Total 120 ml 480 ml Balance 120 ml 480 ml Labs: Laboratory Tests Test 03/22/21 07:30 Glucose (Fingerstick) 134 mg/dL (70-99) H Current Medications: Meds: Laboratory Tests Test 03/22/21 07:30 Glucose (Fingerstick) 134 mg/dL Current Medications Medications (Trade) Dose Ordered Sig/Cierra Route PRN Reason Start Time Stop Time Status Last Admin Dose Admin Acetaminophen (Tylenol) 650 mg PRN Q6HRS PRN PO MILD PAIN / TEMP > 100.3'F 03/12/21 18:15 03/20/21 05:14 Multi-Ingredient Ointment (Analgesic [place]) 1 kory PRN QID PRN TP MUSCLE PAIN 03/12/21 18:15 Al Hydroxide/Mg Hydroxide (Mylanta Plus Xs) 15 ml PRN AFTMEALHC PRN PO DYSPEPSIA 03/12/21 18:15 Magnesium Hydroxide (Milk Of Magnesia) 2,400 mg PRN QHS PRN PO CONSTIPATION 03/12/21 18:15 03/17/21 21:27 Rivastigmine (Exelon 13.3mg) 1 patch DAILY TD 03/13/21 09:00 03/17/21 16:13 DC 03/17/21 12:09 Gabapentin (Neurontin) 300 mg BID PO 03/12/21 21:00 03/22/21 20:52 Memantine (Namenda) 10 mg BID PO 03/12/21 21:00 03/17/21 16:13 DC 03/17/21 12:08 Mirtazapine (Remeron) 7.5 mg DAILY PO 03/13/21 09:00 03/15/21 12:40 DC 03/15/21 08:18 Venlafaxine HCl (Effexor) 50 mg TID PO 03/13/21 09:00 03/14/21 17:30 DC 03/14/21 17:17 Docusate Sodium (Colace) 100 mg BID PO 03/13/21 09:00 03/15/21 10:48 DC 03/15/21 08:19 Metformin HCl (Glucophage) 1,000 mg BIDWMEALS PO 03/13/21 08:00 03/22/21 16:58 Olanzapine (ZyPREXA ZYDIS) 2.5 mg PRN Q2HR PRN PO PSYCHOSIS 03/13/21 07:30 Trazodone HCl (Desyrel) 50 mg PRN QHS PRN PO INSOMNIA 03/13/21 07:30 03/17/21 20:02 Sertraline HCl (Zoloft) 50 mg DAILY PO 03/15/21 09:00 03/17/21 16:13 DC 03/17/21 12:08 Mirtazapine (Remeron) 7.5 mg HS PO 03/16/21 21:00 03/22/21 20:52 Divalproex Sodium (Depakote Sprinkles) 125 mg 0900,1700 PO 03/17/21 09:00 03/22/21 16:58 Amoxicillin (Amoxil) 500 mg [id number] PO 03/17/21 21:00 03/24/21 21:00 03/22/21 20:52 Sertraline HCl (Zoloft) 75 mg DAILY PO 03/18/21 09:00 03/22/21 07:48 Lactobacillus Rhamnosus (Culturelle) 1 cap BID PO 03/19/21 21:00 03/22/21 20:52 I have reviewed the current psychotropics carefully including drug interactions. Risk benefit ratio favors no change other than as noted in my dictated progress note. Diagnosis: Problems: (1) Dementia with behavioral disturbance (2) Major neurocognitive disorder (3) Anxiety disorder (4) Dementia, vascular, with delusions (5) Dementia, vascular, with depression (6) Dementia in Alzheimer's disease with delusions (7) Dementia in Alzheimer's disease with depression (8) Impulse control disorder BRANDY STEVENS MD Mar 22, 2021 21:55
[2021-03-23 06:25] VITALS: BP 114/73
[2021-03-23] MEDS: metFORMIN 500 MG TABLET PO SCH ×2 (09:18→17:14)
[2021-03-23] MEDS: LACTOBACILLUS RHAMNOSUS GG 1 CAPSULE. PO SCH ×2 (09:18→21:08)
[2021-03-23] MEDS: AMOXICILLIN 250 MG CAPSULE PO SCH ×3 (09:18→21:08)
[2021-03-23] MEDS: GABAPENTIN 300 MG CAPSULE. PO SCH ×2 (09:18→21:09)
[2021-03-23] MEDS: SERTRALINE 25 MG TABLET. PO SCH (09:18)
[2021-03-23] MEDS: DIVALPROEX 125 MG CAP.SPRINK PO SCH ×2 (09:18→17:14)
[2021-03-23 15:17] VITALS: BP 119/76
[2021-03-23] MEDS: MIRTAZAPINE 7.5 MG TABLET. PO SCH (21:08)
--- NOTE | 2021-03-23 21:47 | PDOC ---
Exam Note: Da Note: Please also refer to the separate dictated note~for this date of service dictated separately.~Patient seen individually. Discussed the patient with Nursing staff reviewed the chart.~Reviewed interim history and current functioning. Reviewed vital signs,~Labs/ Radiology~and current medications noted below. Continue current treatment with the changes noted in the dictated addendum note Assessment: Vital Signs/I&O: Vital Signs Date Time Temp Pulse Resp B/P (MAP) Pulse Ox O2 Delivery O2 Flow Rate FiO2 03/23/21 15:17 99.5 95 18 119/76 (90) 97 03/23/21 06:25 Room Air I & O 03/22/21 03/22/21 03/23/21 15:00 23:00 07:00 Intake Total 560 ml 240 ml Balance 560 ml 240 ml Labs: Laboratory Tests Test 03/23/21 09:13 Glucose (Fingerstick) 182 mg/dL (70-99) H Current Medications: Meds: Laboratory Tests Test 03/23/21 09:13 Glucose (Fingerstick) 182 mg/dL Current Medications Medications (Trade) Dose Ordered Sig/Cierra Route PRN Reason Start Time Stop Time Status Last Admin Dose Admin Acetaminophen (Tylenol) 650 mg PRN Q6HRS PRN PO MILD PAIN / TEMP > 100.3'F 03/12/21 18:15 03/20/21 05:14 Multi-Ingredient Ointment (Analgesic [place]) 1 kory PRN QID PRN TP MUSCLE PAIN 03/12/21 18:15 Al Hydroxide/Mg Hydroxide (Mylanta Plus Xs) 15 ml PRN AFTMEALHC PRN PO DYSPEPSIA 03/12/21 18:15 Magnesium Hydroxide (Milk Of Magnesia) 2,400 mg PRN QHS PRN PO CONSTIPATION 03/12/21 18:15 03/17/21 21:27 Rivastigmine (Exelon 13.3mg) 1 patch DAILY TD 03/13/21 09:00 03/17/21 16:13 DC 03/17/21 12:09 Gabapentin (Neurontin) 300 mg BID PO 03/12/21 21:00 03/23/21 21:09 Memantine (Namenda) 10 mg BID PO 03/12/21 21:00 03/17/21 16:13 DC 03/17/21 12:08 Mirtazapine (Remeron) 7.5 mg DAILY PO 03/13/21 09:00 03/15/21 12:40 DC 03/15/21 08:18 Venlafaxine HCl (Effexor) 50 mg TID PO 03/13/21 09:00 03/14/21 17:30 DC 03/14/21 17:17 Docusate Sodium (Colace) 100 mg BID PO 03/13/21 09:00 03/15/21 10:48 DC 03/15/21 08:19 Metformin HCl (Glucophage) 1,000 mg BIDWMEALS PO 03/13/21 08:00 03/23/21 17:14 Olanzapine (ZyPREXA ZYDIS) 2.5 mg PRN Q2HR PRN PO PSYCHOSIS 03/13/21 07:30 Trazodone HCl (Desyrel) 50 mg PRN QHS PRN PO INSOMNIA 03/13/21 07:30 03/17/21 20:02 Sertraline HCl (Zoloft) 50 mg DAILY PO 03/15/21 09:00 03/17/21 16:13 DC 03/17/21 12:08 Mirtazapine (Remeron) 7.5 mg HS PO 03/16/21 21:00 03/23/21 21:08 Divalproex Sodium (Depakote Sprinkles) 125 mg 0900,1700 PO 03/17/21 09:00 03/23/21 17:14 Amoxicillin (Amoxil) 500 mg [id number] PO 03/17/21 21:00 03/24/21 21:00 03/23/21 21:08 Sertraline HCl (Zoloft) 75 mg DAILY PO 03/18/21 09:00 03/23/21 09:18 Lactobacillus Rhamnosus (Culturelle) 1 cap BID PO 03/19/21 21:00 03/23/21 21:08 I have reviewed the current psychotropics carefully including drug interactions. Risk benefit ratio favors no change other than as noted in my dictated progress note. Diagnosis: Problems: (1) Major neurocognitive disorder (2) Anxiety disorder (3) Dementia, vascular, with delusions (4) Dementia, vascular, with depression (5) Dementia in Alzheimer's disease with delusions (6) Dementia in Alzheimer's disease with depression (7) Impulse control disorder (8) Dementia with behavioral disturbance BRANDY STEVENS MD Mar 23, 2021 21:47
[2021-03-24 05:48] VITALS: BP 94/60
--- NOTE | 2021-03-24 06:37 | PDOC ---
Exam Note: Da Note: This note is a late entry for 03/22/2021 covers elements not covered in my initial note. Subjective: The patient was reviewed in the morning of 03/22/2021 for a treatment team meeting with Edie Amanda, Dominique Mckay and Felicita (social media manager), Letty, activity therapy and Leigha SHAW, discussed and reviewed the chart. The patient slept 7 hours previous night. Patients gait is unsteady. Oral intake is poor. In the evening discussed with Camilo SHAW. He has been putting himself on the floor gradually. No injury noted. Review of Systems: Impaired ambulation. No CV, , pulmonary, eye system symptoms on review. Mental Status Exam: The patient is oriented to himself. Insight and judgment, recent and remote memory, attention and concentration, fund of knowledge is poor consistent with his diagnoses. Laboratory Data: Reviewed. Impression: Major neurocognitive disorder Alzheimer vascular with delusion, depression, behavioral disturbance. Impulse control disorder unspecified. Anxiety disorder unspecified. Plan: No change from initial note. Assessment: Vital Signs/I&O: Vital Signs Date Time Temp Pulse Resp B/P (MAP) Pulse Ox O2 Delivery O2 Flow Rate FiO2 03/24/21 05:48 97.7 66 16 94/60 (71) 98 Room Air I & O 03/23/21 03/23/21 03/24/21 15:00 23:00 07:00 Intake Total 240 ml 0 ml Balance 240 ml 0 ml Labs: Laboratory Tests Test 03/23/21 09:13 Glucose (Fingerstick) 182 mg/dL (70-99) H Current Medications: Meds: Laboratory Tests Test 03/23/21 09:13 Glucose (Fingerstick) 182 mg/dL Current Medications Medications (Trade) Dose Ordered Sig/Cierra Route PRN Reason Start Time Stop Time Status Last Admin Dose Admin Acetaminophen (Tylenol) 650 mg PRN Q6HRS PRN PO MILD PAIN / TEMP > 100.3'F 03/12/21 18:15 03/20/21 05:14 Multi-Ingredient Ointment (Analgesic [place]) 1 kory PRN QID PRN TP MUSCLE PAIN 03/12/21 18:15 Al Hydroxide/Mg Hydroxide (Mylanta Plus Xs) 15 ml PRN AFTMEALHC PRN PO DYSPEPSIA 03/12/21 18:15 Magnesium Hydroxide (Milk Of Magnesia) 2,400 mg PRN QHS PRN PO CONSTIPATION 03/12/21 18:15 03/17/21 21:27 Rivastigmine (Exelon 13.3mg) 1 patch DAILY TD 03/13/21 09:00 03/17/21 16:13 DC 03/17/21 12:09 Gabapentin (Neurontin) 300 mg BID PO 03/12/21 21:00 03/23/21 21:09 Memantine (Namenda) 10 mg BID PO 03/12/21 21:00 03/17/21 16:13 DC 03/17/21 12:08 Mirtazapine (Remeron) 7.5 mg DAILY PO 03/13/21 09:00 03/15/21 12:40 DC 03/15/21 08:18 Venlafaxine HCl (Effexor) 50 mg TID PO 03/13/21 09:00 03/14/21 17:30 DC 03/14/21 17:17 Docusate Sodium (Colace) 100 mg BID PO 03/13/21 09:00 03/15/21 10:48 DC 03/15/21 08:19 Metformin HCl (Glucophage) 1,000 mg BIDWMEALS PO 03/13/21 08:00 03/23/21 17:14 Olanzapine (ZyPREXA ZYDIS) 2.5 mg PRN Q2HR PRN PO PSYCHOSIS 03/13/21 07:30 Trazodone HCl (Desyrel) 50 mg PRN QHS PRN PO INSOMNIA 03/13/21 07:30 03/17/21 20:02 Sertraline HCl (Zoloft) 50 mg DAILY PO 03/15/21 09:00 03/17/21 16:13 DC 03/17/21 12:08 Mirtazapine (Remeron) 7.5 mg HS PO 03/16/21 21:00 03/23/21 21:08 Divalproex Sodium (Depakote Sprinkles) 125 mg 0900,1700 PO 03/17/21 09:00 03/23/21 17:14 Amoxicillin (Amoxil) 500 mg [id number] PO 03/17/21 21:00 03/24/21 21:00 4/27/21 21:08 Sertraline HCl (Zoloft) 75 mg DAILY PO 03/18/21 09:00 03/23/21 09:18 Lactobacillus Rhamnosus (Culturelle) 1 cap BID PO 03/19/21 21:00 03/23/21 21:08 I have reviewed the current psychotropics carefully including drug interactions. Risk benefit ratio favors no change other than as noted in my dictated progress note. Diagnosis: Problems: (1) Dementia with behavioral disturbance (2) Major neurocognitive disorder (3) Anxiety disorder (4) Dementia, vascular, with delusions (5) Dementia, vascular, with depression (6) Dementia in Alzheimer's disease with delusions (7) Dementia in Alzheimer's disease with depression (8) Impulse control disorder BRANDY STEVENS MD Mar 24, 2021 06:37
--- NOTE | 2021-03-24 07:12 | PDOC ---
Exam Note: Da Note: This note is a late entry for 03/23/2021 covers elements not covered in my initial note. Subjective: The patient was seen individually in the evening of 03/23/2021 with Leigha SHAW, discussed and reviewed the chart. The patient slept 7 hours previous night. At times he is resistive to medications but calmer, remains confused. Review of Systems: Impaired ambulation. No CV, , pulmonary, eye system symptoms on review. Mental Status Exam: The patient is oriented to himself. I met with in his room. Insight and judgment, recent and remote memory, attention and concentration, fund of knowledge is poor consistent with his diagnoses. Laboratory Data: Reviewed. Impression: Major neurocognitive disorder Alzheimer vascular with delusion, depression, behavioral disturbance. Impulse control disorder unspecified. Anxiety disorder unspecified. Plan: No change from initial note. Assessment: Vital Signs/I&O: Vital Signs Date Time Temp Pulse Resp B/P (MAP) Pulse Ox O2 Delivery O2 Flow Rate FiO2 03/24/21 05:48 97.7 66 16 94/60 (71) 98 Room Air I & O 03/23/21 03/23/21 03/24/21 15:00 23:00 07:00 Intake Total 240 ml 0 ml Balance 240 ml 0 ml Labs: Laboratory Tests Test 03/23/21 09:13 Glucose (Fingerstick) 182 mg/dL (70-99) H Current Medications: Meds: Laboratory Tests Test 03/23/21 09:13 Glucose (Fingerstick) 182 mg/dL Current Medications Medications (Trade) Dose Ordered Sig/[place] Route PRN Reason Start Time Stop Time Status Last Admin Dose Admin Acetaminophen (Tylenol) 650 mg PRN Q6HRS PRN PO MILD PAIN / TEMP > 100.3'F 03/12/21 18:15 03/20/21 05:14 Multi-Ingredient Ointment (Analgesic [place]) 1 kory PRN QID PRN TP MUSCLE PAIN 03/12/21 18:15 Al Hydroxide/Mg Hydroxide (Mylanta Plus Xs) 15 ml PRN AFTMEALHC PRN PO DYSPEPSIA 03/12/21 18:15 Magnesium Hydroxide (Milk Of Magnesia) 2,400 mg PRN QHS PRN PO CONSTIPATION 03/12/21 18:15 03/17/21 21:27 Rivastigmine (Exelon 13.3mg) 1 patch DAILY TD 03/13/21 09:00 03/17/21 16:13 DC 03/17/21 12:09 Gabapentin (Neurontin) 300 mg BID PO 03/12/21 21:00 03/23/21 21:09 Memantine (Namenda) 10 mg BID PO 03/12/21 21:00 03/17/21 16:13 DC 03/17/21 12:08 Mirtazapine (Remeron) 7.5 mg DAILY PO 03/13/21 09:00 03/15/21 12:40 DC 03/15/21 08:18 Venlafaxine HCl (Effexor) 50 mg TID PO 03/13/21 09:00 03/14/21 17:30 DC 03/14/21 17:17 Docusate Sodium (Colace) 100 mg BID PO 03/13/21 09:00 03/15/21 10:48 DC 03/15/21 08:19 Metformin HCl (Glucophage) 1,000 mg BIDWMEALS PO 03/13/21 08:00 03/23/21 17:14 Olanzapine (ZyPREXA ZYDIS) 2.5 mg PRN Q2HR PRN PO PSYCHOSIS 03/13/21 07:30 Trazodone HCl (Desyrel) 50 mg PRN QHS PRN PO INSOMNIA 03/13/21 07:30 03/17/21 20:02 Sertraline HCl (Zoloft) 50 mg DAILY PO 03/15/21 09:00 03/17/21 16:13 DC 03/17/21 12:08 Mirtazapine (Remeron) 7.5 mg HS PO 03/16/21 21:00 03/23/21 21:08 Divalproex Sodium (Depakote Sprinkles) 125 mg 0900,1700 PO 03/17/21 09:00 03/23/21 17:14 Amoxicillin (Amoxil) 500 mg [id number] PO 03/17/21 21:00 03/24/21 21:00 03/23/21 21:08 Sertraline HCl (Zoloft) 75 mg DAILY PO 03/18/21 09:00 03/23/21 09:18 Lactobacillus Rhamnosus (Culturelle) 1 cap BID PO 03/19/21 21:00 03/23/21 21:08 I have reviewed the current psychotropics carefully including drug interactions. Risk benefit ratio favors no change other than as noted in my dictated progress note. Diagnosis: Problems: (1) Major neurocognitive disorder (2) Anxiety disorder (3) Dementia, vascular, with delusions (4) Dementia, vascular, with depression (5) Dementia in Alzheimer's disease with delusions (6) Dementia in Alzheimer's disease with depression (7) Impulse control disorder (8) Dementia with behavioral disturbance BRANDY STEVENS MD Mar 24, 2021 07:12
[2021-03-24] MEDS: metFORMIN 500 MG TABLET PO SCH ×2 (07:35→17:43)
[2021-03-24] MEDS: LACTOBACILLUS RHAMNOSUS GG 1 CAPSULE. PO SCH ×2 (07:35→20:17)
[2021-03-24] MEDS: SERTRALINE 25 MG TABLET. PO SCH (07:35)
[2021-03-24] MEDS: AMOXICILLIN 250 MG CAPSULE PO SCH ×3 (07:35→20:17)
[2021-03-24] MEDS: DIVALPROEX 125 MG CAP.SPRINK PO SCH ×2 (07:35→17:44)
[2021-03-24] MEDS: GABAPENTIN 300 MG CAPSULE. PO SCH ×2 (07:35→20:17)
[2021-03-24 15:56] VITALS: BP 96/58
[2021-03-24] MEDS: MIRTAZAPINE 7.5 MG TABLET. PO SCH (20:17)
--- NOTE | 2021-03-24 21:57 | PDOC ---
Exam Note: Da Note: Please also refer to the separate dictated note~for this date of service dictated separately.~Patient seen individually. Discussed the patient with Nursing staff reviewed the chart.~Reviewed interim history and current functioning. Reviewed vital signs,~Labs/ Radiology~and current medications noted below. Continue current treatment with the changes noted in the dictated addendum note Assessment: Vital Signs/I&O: Vital Signs Date Time Temp Pulse Resp B/P (MAP) Pulse Ox O2 Delivery O2 Flow Rate FiO2 03/24/21 15:56 97.4 92 16 96/58 (71) 98 03/24/21 05:48 Room Air I & O 03/23/21 03/23/21 03/24/21 15:00 23:00 07:00 Intake Total 240 ml 0 ml Balance 240 ml 0 ml Labs: Laboratory Tests Test 03/24/21 07:56 Glucose (Fingerstick) 141 mg/dL (70-99) H Current Medications: Meds: Laboratory Tests Test 03/24/21 07:56 Glucose (Fingerstick) 141 mg/dL Current Medications Medications (Trade) Dose Ordered Sig/Cierra Route PRN Reason Start Time Stop Time Status Last Admin Dose Admin Acetaminophen (Tylenol) 650 mg PRN Q6HRS PRN PO MILD PAIN / TEMP > 100.3'F 03/12/21 18:15 03/20/21 05:14 Multi-Ingredient Ointment (Analgesic [place]) 1 kory PRN QID PRN TP MUSCLE PAIN 03/12/21 18:15 Al Hydroxide/Mg Hydroxide (Mylanta Plus Xs) 15 ml PRN AFTMEALHC PRN PO DYSPEPSIA 03/12/21 18:15 Magnesium Hydroxide (Milk Of Magnesia) 2,400 mg PRN QHS PRN PO CONSTIPATION 03/12/21 18:15 03/17/21 21:27 Rivastigmine (Exelon 13.3mg) 1 patch DAILY TD 03/13/21 09:00 03/17/21 16:13 DC 03/17/21 12:09 Gabapentin (Neurontin) 300 mg BID PO 03/12/21 21:00 03/24/21 20:17 Memantine (Namenda) 10 mg BID PO 03/12/21 21:00 03/17/21 16:13 DC 03/17/21 12:08 Mirtazapine (Remeron) 7.5 mg DAILY PO 03/13/21 09:00 03/15/21 12:40 DC 03/15/21 08:18 Venlafaxine HCl (Effexor) 50 mg TID PO 03/13/21 09:00 03/14/21 17:30 DC 03/14/21 17:17 Docusate Sodium (Colace) 100 mg BID PO 03/13/21 09:00 03/15/21 10:48 DC 03/15/21 08:19 Metformin HCl (Glucophage) 1,000 mg BIDWMEALS PO 03/13/21 08:00 03/24/21 17:43 Olanzapine (ZyPREXA ZYDIS) 2.5 mg PRN Q2HR PRN PO PSYCHOSIS 03/13/21 07:30 Trazodone HCl (Desyrel) 50 mg PRN QHS PRN PO INSOMNIA 03/13/21 07:30 03/17/21 20:02 Sertraline HCl (Zoloft) 50 mg DAILY PO 03/15/21 09:00 03/17/21 16:13 DC 03/17/21 12:08 Mirtazapine (Remeron) 7.5 mg HS PO 03/16/21 21:00 03/24/21 20:17 Divalproex Sodium (Depakote Sprinkles) 125 mg 0900,1700 PO 03/17/21 09:00 03/24/21 17:44 Amoxicillin (Amoxil) 500 mg [id number] PO 03/17/21 21:00 03/24/21 21:00 DC 03/24/21 20:17 Sertraline HCl (Zoloft) 75 mg DAILY PO 03/18/21 09:00 03/24/21 07:35 Lactobacillus Rhamnosus (Culturelle) 1 cap BID PO 03/19/21 21:00 03/24/21 20:17 I have reviewed the current psychotropics carefully including drug interactions. Risk benefit ratio favors no change other than as noted in my dictated progress note. 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
[2021-03-25 05:59] VITALS: BP 116/74
[2021-03-25] MEDS: LACTOBACILLUS RHAMNOSUS GG 1 CAPSULE. PO SCH ×2 (10:51→21:40)
[2021-03-25] MEDS: SERTRALINE 25 MG TABLET. PO SCH (10:51)
[2021-03-25] MEDS: metFORMIN 500 MG TABLET PO SCH ×2 (10:51→17:18)
[2021-03-25] MEDS: GABAPENTIN 300 MG CAPSULE. PO SCH ×2 (10:52→21:40)
[2021-03-25] MEDS: DIVALPROEX 125 MG CAP.SPRINK PO SCH ×2 (10:52→17:18)
[2021-03-25 17:54] VITALS: BP 119/69
[2021-03-25] MEDS: MIRTAZAPINE 7.5 MG TABLET. PO SCH (21:40)
--- NOTE | 2021-03-25 21:59 | PDOC ---
Exam Note: Da Note: Please also refer to the separate dictated note~for this date of service dictated separately.~Patient seen individually. Discussed the patient with Nursing staff reviewed the chart.~Reviewed interim history and current functioning. Reviewed vital signs,~Labs/ Radiology~and current medications noted below. Continue current treatment with the changes noted in the dictated addendum note Assessment: Vital Signs/I&O: Vital Signs Date Time Temp Pulse Resp B/P (MAP) Pulse Ox O2 Delivery O2 Flow Rate FiO2 03/25/21 17:54 97.8 73 18 119/69 (86) 100 03/24/21 05:48 Room Air I & O 03/24/21 03/24/21 03/25/21 15:00 23:00 07:00 Intake Total 960 ml 220 ml 240 ml Balance 960 ml 220 ml 240 ml Labs: Laboratory Tests Test 03/25/21 07:55 Glucose (Fingerstick) 137 mg/dL (70-99) H Current Medications: Meds: Laboratory Tests Test 03/25/21 07:55 Glucose (Fingerstick) 137 mg/dL Current Medications Medications (Trade) Dose Ordered Sig/Cierra Route PRN Reason Start Time Stop Time Status Last Admin Dose Admin Acetaminophen (Tylenol) 650 mg PRN Q6HRS PRN PO MILD PAIN / TEMP > 100.3'F 03/12/21 18:15 03/20/21 05:14 Multi-Ingredient Ointment (Analgesic [place]) 1 kory PRN QID PRN TP MUSCLE PAIN 03/12/21 18:15 Al Hydroxide/Mg Hydroxide (Mylanta Plus Xs) 15 ml PRN AFTMEALHC PRN PO DYSPEPSIA 03/12/21 18:15 Magnesium Hydroxide (Milk Of Magnesia) 2,400 mg PRN QHS PRN PO CONSTIPATION 03/12/21 18:15 03/17/21 21:27 Rivastigmine (Exelon 13.3mg) 1 patch DAILY TD 03/13/21 09:00 03/17/21 16:13 DC 03/17/21 12:09 Gabapentin (Neurontin) 300 mg BID PO 03/12/21 21:00 03/25/21 21:40 Memantine (Namenda) 10 mg BID PO 03/12/21 21:00 03/17/21 16:13 DC 03/17/21 12:08 Mirtazapine (Remeron) 7.5 mg DAILY PO 03/13/21 09:00 03/15/21 12:40 DC 03/15/21 08:18 Venlafaxine HCl (Effexor) 50 mg TID PO 03/13/21 09:00 03/14/21 17:30 DC 03/14/21 17:17 Docusate Sodium (Colace) 100 mg BID PO 03/13/21 09:00 03/15/21 10:48 DC 03/15/21 08:19 Metformin HCl (Glucophage) 1,000 mg BIDWMEALS PO 03/13/21 08:00 03/25/21 17:18 Olanzapine (ZyPREXA ZYDIS) 2.5 mg PRN Q2HR PRN PO PSYCHOSIS 03/13/21 07:30 Trazodone HCl (Desyrel) 50 mg PRN QHS PRN PO INSOMNIA 03/13/21 07:30 03/17/21 20:02 Sertraline HCl (Zoloft) 50 mg DAILY PO 03/15/21 09:00 03/17/21 16:13 DC 03/17/21 12:08 Mirtazapine (Remeron) 7.5 mg HS PO 03/16/21 21:00 03/25/21 21:40 Divalproex Sodium (Depakote Sprinkles) 125 mg 0900,1700 PO 03/17/21 09:00 03/25/21 17:18 Amoxicillin (Amoxil) 500 mg [id number] PO 03/17/21 21:00 03/24/21 21:00 DC 03/24/21 20:17 Sertraline HCl (Zoloft) 75 mg DAILY PO 03/18/21 09:00 03/25/21 10:51 Lactobacillus Rhamnosus (Culturelle) 1 cap BID PO 03/19/21 21:00 03/25/21 21:40 I have reviewed the current psychotropics carefully including drug interactions. Risk benefit ratio favors no change other than as noted in my dictated progress note. 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
[2021-03-26 06:03] VITALS: BP 132/83
[2021-03-26 07:06] LABS: BASO % 1 % (0-3); EOS # 0.1 x10^3/uL (0.0-0.7); EOS % 3 % (0-3); HEMOGLOBIN 14.5 g/dL (13.0-17.5); LYMPH # 1.6 x10^3/uL (1.0-4.8); LYMPH % 31 % (24-48); MEAN CORPUSCULAR HEMOGLOBIN 29 pg (25-35); MEAN CORPUSCULAR HGB CONC 34 g/dL (31-37); MEAN CORPUSCULAR VOLUME 87 fL (79-100); MONO # 0.5 x10^3/uL (0.0-1.1); MONO % 9 % (0-9); NEUT # 2.9 x10^3uL (1.8-7.7); NEUT % 56 % (31-73); PLATELET COUNT 207 x10^3/uL (140-400); RED BLOOD COUNT 4.93 x10^6/uL (4.30-5.70); RED CELL DISTRIBUTION WIDTH 12.9 % (11.5-14.5); WHITE BLOOD COUNT 5.2 x10^3/uL (4.0-11.0)
[2021-03-26 07:21] LABS: ALBUMIN 2.9 g/dL (3.4-5.0); ALBUMIN/GLOBULIN RATIO 0.6 (1.0-1.7); GFR 75.5; POTASSIUM 3.6 mmol/L (3.5-5.1); TOTAL BILIRUBIN 0.3 mg/dL (0.2-1.0); TOTAL PROTEIN 7.5 g/dL (6.4-8.2)
[2021-03-26] MEDS: SERTRALINE 25 MG TABLET. PO SCH (08:16)
[2021-03-26] MEDS: LACTOBACILLUS RHAMNOSUS GG 1 CAPSULE. PO SCH ×2 (08:16→21:29)
[2021-03-26] MEDS: metFORMIN 500 MG TABLET PO SCH ×2 (08:16→15:50)
[2021-03-26] MEDS: GABAPENTIN 300 MG CAPSULE. PO SCH ×2 (08:16→21:29)
[2021-03-26] MEDS: DIVALPROEX 125 MG CAP.SPRINK PO SCH ×2 (08:16→15:50)
[2021-03-26 15:53] VITALS: BP 110/70
[2021-03-26] MEDS: MIRTAZAPINE 7.5 MG TABLET. PO SCH (21:29)
--- NOTE | 2021-03-26 22:15 | PDOC ---
Exam Note: Da Note: Please also refer to the separate dictated note~for this date of service dictated separately.~Patient seen individually. Discussed the patient with Nursing staff reviewed the chart.~Reviewed interim history and current functioning. Reviewed vital signs,~Labs/ Radiology~and current medications noted below. Continue current treatment with the changes noted in the dictated addendum note Assessment: Vital Signs/I&O: Vital Signs Date Time Temp Pulse Resp B/P (MAP) Pulse Ox O2 Delivery O2 Flow Rate FiO2 03/26/21 15:53 97.2 88 20 110/70 (83) 94 Room Air I & O 03/25/21 03/25/21 03/26/21 15:00 23:00 07:00 Intake Total 120 ml 480 ml Balance 120 ml 480 ml Labs: Laboratory Tests Test 03/26/21 06:52 03/26/21 07:53 White Blood Count 5.2 x10^3/uL (4.0-11.0) Red Blood Count 4.93 x10^6/uL (4.30-5.70) Hemoglobin 14.5 g/dL (13.0-17.5) Hematocrit 43.0 % (39.0-53.0) Mean Corpuscular Volume 87 fL (79-100) Mean Corpuscular Hemoglobin 29 pg (25-35) Mean Corpuscular Hemoglobin Concent 34 g/dL (31-37) Red Cell Distribution Width 12.9 % (11.5-14.5) Platelet Count 207 x10^3/uL (140-400) Neutrophils (%) (Auto) 56 % (31-73) Lymphocytes (%) (Auto) 31 % (24-48) Monocytes (%) (Auto) 9 % (0-9) Eosinophils (%) (Auto) 3 % (0-3) Basophils (%) (Auto) 1 % (0-3) Neutrophils # (Auto) 2.9 x10^3uL (1.8-7.7) Lymphocytes # (Auto) 1.6 x10^3/uL (1.0-4.8) Monocytes # (Auto) 0.5 x10^3/uL (0.0-1.1) Eosinophils # (Auto) 0.1 x10^3/uL (0.0-0.7) Basophils # (Auto) 0.0 x10^3/uL (0.0-0.2) Sodium Level 141 mmol/L (136-145) Potassium Level 3.6 mmol/L (3.5-5.1) Chloride Level 103 mmol/L (98-107) Carbon Dioxide Level 29 mmol/L (21-32) Anion Gap 9 (6-14) Blood Urea Nitrogen 10 mg/dL (8-26) Creatinine 1.0 mg/dL (0.7-1.3) Estimated GFR (Cockcroft-Gault) 75.5 BUN/Creatinine Ratio 10 (6-20) Glucose Level 154 mg/dL (70-99) H Calcium Level 9.0 mg/dL (8.5-10.1) Total Bilirubin 0.3 mg/dL (0.2-1.0) Aspartate Amino Transferase (AST) 31 U/L (15-37) Alanine Aminotransferase (ALT) 35 U/L (16-63) Alkaline Phosphatase 105 U/L (46-116) Total Protein 7.5 g/dL (6.4-8.2) Albumin 2.9 g/dL (3.4-5.0) L Albumin/Globulin Ratio 0.6 (1.0-1.7) L Glucose (Fingerstick) 207 mg/dL (70-99) H Current Medications: Meds: Laboratory Tests Test 03/26/21 06:52 03/26/21 07:53 White Blood Count 5.2 x10^3/uL Red Blood Count 4.93 x10^6/uL Hemoglobin 14.5 g/dL Hematocrit 43.0 % Mean Corpuscular Volume 87 fL Mean Corpuscular Hemoglobin 29 pg Mean Corpuscular Hemoglobin Concent 34 g/dL Red Cell Distribution Width 12.9 % Platelet Count 207 x10^3/uL Neutrophils (%) (Auto) 56 % Lymphocytes (%) (Auto) 31 % Monocytes (%) (Auto) 9 % Eosinophils (%) (Auto) 3 % Basophils (%) (Auto) 1 % Neutrophils # (Auto) 2.9 x10^3uL Lymphocytes # (Auto) 1.6 x10^3/uL Monocytes # (Auto) 0.5 x10^3/uL Eosinophils # (Auto) 0.1 x10^3/uL Basophils # (Auto) 0.0 x10^3/uL Sodium Level 141 mmol/L Potassium Level 3.6 mmol/L Chloride Level 103 mmol/L Carbon Dioxide Level 29 mmol/L Anion Gap 9 Blood Urea Nitrogen 10 mg/dL Creatinine 1.0 mg/dL Estimated GFR (Cockcroft-Gault) 75.5 BUN/Creatinine Ratio 10 Glucose Level 154 mg/dL Calcium Level 9.0 mg/dL Total Bilirubin 0.3 mg/dL Aspartate Amino Transf (AST/SGOT) 31 U/L Alanine Aminotransferase (ALT/SGPT) 35 U/L Alkaline Phosphatase 105 U/L Total Protein 7.5 g/dL Albumin 2.9 g/dL Albumin/Globulin Ratio 0.6 Glucose (Fingerstick) 207 mg/dL Current Medications Medications (Trade) Dose Ordered Sig/Cierra Route PRN Reason Start Time Stop Time Status Last Admin Dose Admin Acetaminophen (Tylenol) 650 mg PRN Q6HRS PRN PO MILD PAIN / TEMP > 100.3'F 03/12/21 18:15 03/20/21 05:14 Multi-Ingredient Ointment (Analgesic [place]) 1 kory PRN QID PRN TP MUSCLE PAIN 03/12/21 18:15 Al Hydroxide/Mg Hydroxide (Mylanta Plus Xs) 15 ml PRN AFTMEALHC PRN PO DYSPEPSIA 03/12/21 18:15 Magnesium Hydroxide (Milk Of Magnesia) 2,400 mg PRN QHS PRN PO CONSTIPATION 03/12/21 18:15 03/17/21 21:27 Rivastigmine (Exelon 13.3mg) 1 patch DAILY TD 03/13/21 09:00 03/17/21 16:13 DC 03/17/21 12:09 Gabapentin (Neurontin) 300 mg BID PO 03/12/21 21:00 03/26/21 21:29 Memantine (Namenda) 10 mg BID PO 03/12/21 21:00 03/17/21 16:13 DC 03/17/21 12:08 Mirtazapine (Remeron) 7.5 mg DAILY PO 03/13/21 09:00 03/15/21 12:40 DC 03/15/21 08:18 Venlafaxine HCl (Effexor) 50 mg TID PO 03/13/21 09:00 03/14/21 17:30 DC 03/14/21 17:17 Docusate Sodium (Colace) 100 mg BID PO 03/13/21 09:00 03/15/21 10:48 DC 03/15/21 08:19 Metformin HCl (Glucophage) 1,000 mg BIDWMEALS PO 03/13/21 08:00 03/26/21 15:50 Olanzapine (ZyPREXA ZYDIS) 2.5 mg PRN Q2HR PRN PO PSYCHOSIS 03/13/21 07:30 Trazodone HCl (Desyrel) 50 mg PRN QHS PRN PO INSOMNIA 03/13/21 07:30 03/17/21 20:02 Sertraline HCl (Zoloft) 50 mg DAILY PO 03/15/21 09:00 03/17/21 16:13 DC 03/17/21 12:08 Mirtazapine (Remeron) 7.5 mg HS PO 03/16/21 21:00 03/26/21 21:29 Divalproex Sodium (Depakote Sprinkles) 125 mg 0900,1700 PO 03/17/21 09:00 03/26/21 18:07 DC 03/26/21 15:50 Amoxicillin (Amoxil) 500 mg [id number] PO 03/17/21 21:00 03/24/21 21:00 DC 03/24/21 20:17 Sertraline HCl (Zoloft) 75 mg DAILY PO 03/18/21 09:00 03/26/21 08:16 Lactobacillus Rhamnosus (Culturelle) 1 cap BID PO 03/19/21 21:00 03/26/21 21:29 Divalproex Sodium (Depakote Sprinkles) 250 mg 0900,1700 PO 03/27/21 09:00 I have reviewed the current psychotropics carefully including drug interactions. Risk benefit ratio favors no change other than as noted in my dictated progress note. 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
[2021-03-27 06:30] VITALS: BP 89/53
--- NOTE | 2021-03-27 07:36 | PDOC ---
Exam Note: Da Note: This note is a late entry for 03/24/2021 covers elements not covered in my initial note. Subjective: The patient was seen individually in the evening of 03/24/2021 with Chance SHAW, discussed and reviewed the chart. The patient slept 10 hours previous night. He remains confused, wanders the unit, redirects, at times urinating on the floor. Review of Systems: Impaired ambulation. No CV, , pulmonary, eye system symptoms on review. Mental Status Exam: The patient is oriented to himself. Insight and judgment, recent and remote memory, attention and concentration, fund of knowledge is poor consistent with his diagnoses. Laboratory Data: Reviewed. Impression: Major neurocognitive disorder Alzheimer vascular with delusion, depression, behavioral disturbance. Impulse control disorder unspecified. Anxiety disorder unspecified. Plan: No change from initial note. Assessment: Vital Signs/I&O: Vital Signs Date Time Temp Pulse Resp B/P (MAP) Pulse Ox O2 Delivery O2 Flow Rate FiO2 03/27/21 06:30 97.3 67 18 89/53 (65) 98 03/26/21 15:53 Room Air I & O 03/26/21 03/26/21 03/27/21 15:00 23:00 07:00 Intake Total 480 ml 360 ml Balance 480 ml 360 ml Labs: Laboratory Tests Test 03/26/21 07:53 Glucose (Fingerstick) 207 mg/dL (70-99) H Current Medications: Meds: Laboratory Tests Test 03/26/21 07:53 Glucose (Fingerstick) 207 mg/dL Current Medications Medications (Trade) Dose Ordered Sig/Cierra Route PRN Reason Start Time Stop Time Status Last Admin Dose Admin Acetaminophen (Tylenol) 650 mg PRN Q6HRS PRN PO MILD PAIN / TEMP > 100.3'F 03/12/21 18:15 03/20/21 05:14 Multi-Ingredient Ointment (Analgesic [place]) 1 kory PRN QID PRN TP MUSCLE PAIN 03/12/21 18:15 Al Hydroxide/Mg Hydroxide (Mylanta Plus Xs) 15 ml PRN AFTMEALHC PRN PO DYSPEPSIA 03/12/21 18:15 Magnesium Hydroxide (Milk Of Magnesia) 2,400 mg PRN QHS PRN PO CONSTIPATION 03/12/21 18:15 03/17/21 21:27 Rivastigmine (Exelon 13.3mg) 1 patch DAILY TD 03/13/21 09:00 03/17/21 16:13 DC 03/17/21 12:09 Gabapentin (Neurontin) 300 mg BID PO 03/12/21 21:00 03/26/21 21:29 Memantine (Namenda) 10 mg BID PO 03/12/21 21:00 03/17/21 16:13 DC 03/17/21 12:08 Mirtazapine (Remeron) 7.5 mg DAILY PO 03/13/21 09:00 03/15/21 12:40 DC 03/15/21 08:18 Venlafaxine HCl (Effexor) 50 mg TID PO 03/13/21 09:00 03/14/21 17:30 DC 03/14/21 17:17 Docusate Sodium (Colace) 100 mg BID PO 03/13/21 09:00 03/15/21 10:48 DC 03/15/21 08:19 Metformin HCl (Glucophage) 1,000 mg BIDWMEALS PO 03/13/21 08:00 03/26/21 15:50 Olanzapine (ZyPREXA ZYDIS) 2.5 mg PRN Q2HR PRN PO PSYCHOSIS 03/13/21 07:30 Trazodone HCl (Desyrel) 50 mg PRN QHS PRN PO INSOMNIA 03/13/21 07:30 03/17/21 20:02 Sertraline HCl (Zoloft) 50 mg DAILY PO 03/15/21 09:00 03/17/21 16:13 DC 03/17/21 12:08 Mirtazapine (Remeron) 7.5 mg HS PO 03/16/21 21:00 03/26/21 21:29 Divalproex Sodium (Depakote Sprinkles) 125 mg 0900,1700 PO 03/17/21 09:00 03/26/21 18:07 DC 03/26/21 15:50 Amoxicillin (Amoxil) 500 mg [id number] PO 03/17/21 21:00 03/24/21 21:00 DC 03/24/21 20:17 Sertraline HCl (Zoloft) 75 mg DAILY PO 03/18/21 09:00 03/26/21 08:16 Lactobacillus Rhamnosus (Culturelle) 1 cap BID PO 03/19/21 21:00 03/26/21 21:29 Divalproex Sodium (Depakote Sprinkles) 250 mg 0900,1700 PO 03/27/21 09:00 I have reviewed the current psychotropics carefully including drug interactions. Risk benefit ratio favors no change other than as noted in my dictated progress note. 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
--- NOTE | 2021-03-27 08:07 | PDOC ---
Exam Note: Da Note: This note is a late entry for 03/25/2021 covers elements not covered in my initial note. Subjective: The patient was seen individually in the evening of 03/25/2021 with Kati SHAW, discussed and reviewed the chart. The patient slept 7 hours previous night. He sometimes forgets how to eat and has to be fed. Review of Systems: Impaired ambulation. No CV, , pulmonary, eye system symptoms on review. Mental Status Exam: The patient is oriented to himself. Insight and judgment, recent and remote memory, attention and concentration, fund of knowledge is poor consistent with his diagnoses. Laboratory Data: Reviewed. Impression: Major neurocognitive disorder Alzheimer vascular with delusion, depression, behavioral disturbance. Impulse control disorder unspecified. Anxiety disorder unspecified. Plan: No change from initial note. Assessment: Vital Signs/I&O: Vital Signs Date Time Temp Pulse Resp B/P (MAP) Pulse Ox O2 Delivery O2 Flow Rate FiO2 03/27/21 06:30 97.3 67 18 89/53 (65) 98 03/26/21 15:53 Room Air I & O 03/26/21 03/26/21 03/27/21 15:00 23:00 07:00 Intake Total 480 ml 360 ml Balance 480 ml 360 ml Labs: Laboratory Tests Test 03/27/21 07:51 Glucose (Fingerstick) 120 mg/dL (70-99) H Current Medications: Meds: Laboratory Tests Test 03/27/21 07:51 Glucose (Fingerstick) 120 mg/dL Current Medications Medications (Trade) Dose Ordered Sig/Cierra Route PRN Reason Start Time Stop Time Status Last Admin Dose Admin Acetaminophen (Tylenol) 650 mg PRN Q6HRS PRN PO MILD PAIN / TEMP > 100.3'F 03/12/21 18:15 03/20/21 05:14 Multi-Ingredient Ointment (Analgesic [place]) 1 kory PRN QID PRN TP MUSCLE PAIN 03/12/21 18:15 Al Hydroxide/Mg Hydroxide (Mylanta Plus Xs) 15 ml PRN AFTMEALHC PRN PO DYSPEPSIA 03/12/21 18:15 Magnesium Hydroxide (Milk Of Magnesia) 2,400 mg PRN QHS PRN PO CONSTIPATION 03/12/21 18:15 03/17/21 21:27 Rivastigmine (Exelon 13.3mg) 1 patch DAILY TD 03/13/21 09:00 03/17/21 16:13 DC 03/17/21 12:09 Gabapentin (Neurontin) 300 mg BID PO 03/12/21 21:00 03/26/21 21:29 Memantine (Namenda) 10 mg BID PO 03/12/21 21:00 03/17/21 16:13 DC 03/17/21 12:08 Mirtazapine (Remeron) 7.5 mg DAILY PO 03/13/21 09:00 03/15/21 12:40 DC 03/15/21 08:18 Venlafaxine HCl (Effexor) 50 mg TID PO 03/13/21 09:00 03/14/21 17:30 DC 03/14/21 17:17 Docusate Sodium (Colace) 100 mg BID PO 03/13/21 09:00 03/15/21 10:48 DC 03/15/21 08:19 Metformin HCl (Glucophage) 1,000 mg BIDWMEALS PO 03/13/21 08:00 03/26/21 15:50 Olanzapine (ZyPREXA ZYDIS) 2.5 mg PRN Q2HR PRN PO PSYCHOSIS 03/13/21 07:30 Trazodone HCl (Desyrel) 50 mg PRN QHS PRN PO INSOMNIA 03/13/21 07:30 03/17/21 20:02 Sertraline HCl (Zoloft) 50 mg DAILY PO 03/15/21 09:00 03/17/21 16:13 DC 03/17/21 12:08 Mirtazapine (Remeron) 7.5 mg HS PO 03/16/21 21:00 03/26/21 21:29 Divalproex Sodium (Depakote Sprinkles) 125 mg 0900,1700 PO 03/17/21 09:00 03/26/21 18:07 DC 03/26/21 15:50 Amoxicillin (Amoxil) 500 mg [id number] PO 03/17/21 21:00 03/24/21 21:00 DC 03/24/21 20:17 Sertraline HCl (Zoloft) 75 mg DAILY PO 03/18/21 09:00 03/26/21 08:16 Lactobacillus Rhamnosus (Culturelle) 1 cap BID PO 03/19/21 21:00 03/26/21 21:29 Divalproex Sodium (Depakote Sprinkles) 250 mg 0900,1700 PO 03/27/21 09:00 I have reviewed the current psychotropics carefully including drug interactions. Risk benefit ratio favors no change other than as noted in my dictated progress note. Diagnosis: Problems: (1) Dementia with behavioral disturbance (2) Major neurocognitive disorder (3) Anxiety disorder (4) Dementia, vascular, with delusions (5) Dementia, vascular, with depression (6) Dementia in Alzheimer's disease with delusions (7) Dementia in Alzheimer's disease with depression (8) Impulse control disorder BRANDY STEVENS MD March 27, 2021 08:07
[2021-03-27] MEDS: LACTOBACILLUS RHAMNOSUS GG 1 CAPSULE. PO SCH ×2 (08:15→21:08)
[2021-03-27] MEDS: SERTRALINE 25 MG TABLET. PO SCH (08:15)
[2021-03-27] MEDS: DIVALPROEX 125 MG CAP.SPRINK PO SCH ×2 (08:15→17:15)
[2021-03-27] MEDS: metFORMIN 500 MG TABLET PO SCH ×2 (08:15→17:15)
[2021-03-27] MEDS: GABAPENTIN 300 MG CAPSULE. PO SCH ×2 (08:15→21:08)
[2021-03-27 15:47] VITALS: BP 91/66
[2021-03-27] MEDS: MIRTAZAPINE 7.5 MG TABLET. PO SCH (21:08)
--- NOTE | 2021-03-27 21:52 | PDOC ---
Exam Note: Da Note: Please also refer to the separate dictated note~for this date of service dictated separately.~Patient seen individually. Discussed the patient with Nursing staff reviewed the chart.~Reviewed interim history and current functioning. Reviewed vital signs,~Labs/ Radiology~and current medications noted below. Continue current treatment with the changes noted in the dictated addendum note Assessment: Vital Signs/I&O: Vital Signs Date Time Temp Pulse Resp B/P (MAP) Pulse Ox O2 Delivery O2 Flow Rate FiO2 03/27/21 15:47 97.8 74 20 91/66 (74) 95 Room Air I & O 03/26/21 03/26/21 03/27/21 14:59 22:59 06:59 Intake Total 480 ml 360 ml Balance 480 ml 360 ml Labs: Laboratory Tests Test 03/27/21 07:51 Glucose (Fingerstick) 120 mg/dL (70-99) H Current Medications: Meds: Laboratory Tests Test 03/27/21 07:51 Glucose (Fingerstick) 120 mg/dL Current Medications Medications (Trade) Dose Ordered Sig/Cierra Route PRN Reason Start Time Stop Time Status Last Admin Dose Admin Acetaminophen (Tylenol) 650 mg PRN Q6HRS PRN PO MILD PAIN / TEMP > 100.3'F 03/12/21 18:15 03/20/21 05:14 Multi-Ingredient Ointment (Analgesic [place]) 1 kory PRN QID PRN TP MUSCLE PAIN 03/12/21 18:15 Al Hydroxide/Mg Hydroxide (Mylanta Plus Xs) 15 ml PRN AFTMEALHC PRN PO DYSPEPSIA 03/12/21 18:15 Magnesium Hydroxide (Milk Of Magnesia) 2,400 mg PRN QHS PRN PO CONSTIPATION 03/12/21 18:15 03/17/21 21:27 Rivastigmine (Exelon 13.3mg) 1 patch DAILY TD 03/13/21 09:00 03/17/21 16:13 DC 03/17/21 12:09 Gabapentin (Neurontin) 300 mg BID PO 03/12/21 21:00 03/27/21 21:08 Memantine (Namenda) 10 mg BID PO 03/12/21 21:00 03/17/21 16:13 DC 03/17/21 12:08 Mirtazapine (Remeron) 7.5 mg DAILY PO 03/13/21 09:00 03/15/21 12:40 DC 03/15/21 08:18 Venlafaxine HCl (Effexor) 50 mg TID PO 03/13/21 09:00 03/14/21 17:30 DC 03/14/21 17:17 Docusate Sodium (Colace) 100 mg BID PO 03/13/21 09:00 03/15/21 10:48 DC 03/15/21 08:19 Metformin HCl (Glucophage) 1,000 mg BIDWMEALS PO 03/13/21 08:00 03/27/21 17:15 Olanzapine (ZyPREXA ZYDIS) 2.5 mg PRN Q2HR PRN PO PSYCHOSIS 03/13/21 07:30 Trazodone HCl (Desyrel) 50 mg PRN QHS PRN PO INSOMNIA 03/13/21 07:30 03/17/21 20:02 Sertraline HCl (Zoloft) 50 mg DAILY PO 03/15/21 09:00 03/17/21 16:13 DC 03/17/21 12:08 Mirtazapine (Remeron) 7.5 mg HS PO 03/16/21 21:00 03/27/21 21:08 Divalproex Sodium (Depakote Sprinkles) 125 mg 0900,1700 PO 03/17/21 09:00 03/26/21 18:07 DC 03/26/21 15:50 Amoxicillin (Amoxil) 500 mg [id number] PO 03/17/21 21:00 03/24/21 21:00 DC 03/24/21 20:17 Sertraline HCl (Zoloft) 75 mg DAILY PO 03/18/21 09:00 03/27/21 08:15 Lactobacillus Rhamnosus (Culturelle) 1 cap BID PO 03/19/21 21:00 03/27/21 21:08 Divalproex Sodium (Depakote Sprinkles) 250 mg 0900,1700 PO 03/27/21 09:00 03/27/21 17:15 Current Medications Medications (Trade) Dose Ordered Sig/Cierra Route PRN Reason Start Time Stop Time Status Last Admin Dose Admin Divalproex Sodium (Depakote Sprinkles) 250 mg 0900,1700 PO 03/27/21 09:00 03/27/21 17:15 I have reviewed the current psychotropics carefully including drug interactions. Risk benefit ratio favors no change other than as noted in my dictated progress note. Diagnosis: Problems: (1) Major neurocognitive disorder (2) Anxiety disorder (3) Dementia, vascular, with delusions (4) Dementia, vascular, with depression (5) Dementia in Alzheimer's disease with delusions (6) Dementia in Alzheimer's disease with depression (7) Impulse control disorder (8) Dementia with behavioral disturbance BRANDY STEVENS MD March 27, 2021 21:52
[2021-03-28 06:17] VITALS: BP 129/73
[2021-03-28] MEDS: SERTRALINE 25 MG TABLET. PO SCH (06:22)
[2021-03-28] MEDS: metFORMIN 500 MG TABLET PO SCH ×2 (06:23→17:16)
[2021-03-28] MEDS: LACTOBACILLUS RHAMNOSUS GG 1 CAPSULE. PO SCH ×2 (06:23→20:56)
[2021-03-28] MEDS: GABAPENTIN 300 MG CAPSULE. PO SCH ×2 (06:23→20:56)
[2021-03-28] MEDS: DIVALPROEX 125 MG CAP.SPRINK PO SCH ×2 (06:23→17:16)
[2021-03-28 16:12] VITALS: BP 108/73
[2021-03-28] MEDS: MIRTAZAPINE 7.5 MG TABLET. PO SCH (20:56)
--- NOTE | 2021-03-28 21:54 | PDOC ---
Exam Note: Da Note: Please also refer to the separate dictated note~for this date of service dictated separately.~Patient seen individually. Discussed the patient with Nursing staff reviewed the chart.~Reviewed interim history and current functioning. Reviewed vital signs,~Labs/ Radiology~and current medications noted below. Continue current treatment with the changes noted in the dictated addendum note Assessment: Vital Signs/I&O: Vital Signs Date Time Temp Pulse Resp B/P (MAP) Pulse Ox O2 Delivery O2 Flow Rate FiO2 03/28/21 16:12 98.2 91 20 108/73 (85) 98 03/28/21 06:17 Room Air I & O 03/27/21 03/27/21 03/28/21 15:00 23:00 07:00 Intake Total 360 ml 120 ml Balance 360 ml 120 ml Labs: Laboratory Tests Test 03/28/21 07:53 Glucose (Fingerstick) 127 mg/dL (70-99) H Current Medications: Meds: Laboratory Tests Test 03/28/21 07:53 Glucose (Fingerstick) 127 mg/dL Current Medications Medications (Trade) Dose Ordered Sig/Cierra Route PRN Reason Start Time Stop Time Status Last Admin Dose Admin Acetaminophen (Tylenol) 650 mg PRN Q6HRS PRN PO MILD PAIN / TEMP > 100.3'F 03/12/21 18:15 03/20/21 05:14 Multi-Ingredient Ointment (Analgesic [place]) 1 kory PRN QID PRN TP MUSCLE PAIN 03/12/21 18:15 Al Hydroxide/Mg Hydroxide (Mylanta Plus Xs) 15 ml PRN AFTMEALHC PRN PO DYSPEPSIA 03/12/21 18:15 Magnesium Hydroxide (Milk Of Magnesia) 2,400 mg PRN QHS PRN PO CONSTIPATION 03/12/21 18:15 03/17/21 21:27 Rivastigmine (Exelon 13.3mg) 1 patch DAILY TD 03/13/21 09:00 03/17/21 16:13 DC 03/17/21 12:09 Gabapentin (Neurontin) 300 mg BID PO 03/12/21 21:00 03/28/21 20:56 Memantine (Namenda) 10 mg BID PO 03/12/21 21:00 03/17/21 16:13 DC 03/17/21 12:08 Mirtazapine (Remeron) 7.5 mg DAILY PO 03/13/21 09:00 03/15/21 12:40 DC 03/15/21 08:18 Venlafaxine HCl (Effexor) 50 mg TID PO 03/13/21 09:00 03/14/21 17:30 DC 03/14/21 17:17 Docusate Sodium (Colace) 100 mg BID PO 03/13/21 09:00 03/15/21 10:48 DC 03/15/21 08:19 Metformin HCl (Glucophage) 1,000 mg BIDWMEALS PO 03/13/21 08:00 03/28/21 17:16 Olanzapine (ZyPREXA ZYDIS) 2.5 mg PRN Q2HR PRN PO PSYCHOSIS 03/13/21 07:30 Trazodone HCl (Desyrel) 50 mg PRN QHS PRN PO INSOMNIA 03/13/21 07:30 03/17/21 20:02 Sertraline HCl (Zoloft) 50 mg DAILY PO 03/15/21 09:00 03/17/21 16:13 DC 03/17/21 12:08 Mirtazapine (Remeron) 7.5 mg HS PO 03/16/21 21:00 03/28/21 20:56 Divalproex Sodium (Depakote Sprinkles) 125 mg 0900,1700 PO 03/17/21 09:00 03/26/21 18:07 DC 03/26/21 15:50 Amoxicillin (Amoxil) 500 mg [id number] PO 03/17/21 21:00 03/24/21 21:00 DC 03/24/21 20:17 Sertraline HCl (Zoloft) 75 mg DAILY PO 03/18/21 09:00 03/28/21 06:22 Lactobacillus Rhamnosus (Culturelle) 1 cap BID PO 03/19/21 21:00 03/28/21 20:56 Divalproex Sodium (Depakote Sprinkles) 250 mg 0900,1700 PO 03/27/21 09:00 03/28/21 17:16 I have reviewed the current psychotropics carefully including drug interactions. Risk benefit ratio favors no change other than as noted in my dictated progress note. 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
[2021-03-29 06:01] VITALS: BP 108/70
--- NOTE | 2021-03-29 06:49 | PDOC ---
Exam Note: Da Note: This note is a late entry for 03/26/2021 covers elements not covered in my initial note. Subjective: The patient was seen individually in the evening of 03/26/2021 with Neha RN, discussed and reviewed the chart. The patient slept 6-3/4 hours previous night. According to nursing report the day before the patient slept most of the day. On the he has been more awake and ambulating more. He is more verbal as well, smiling per nursing staff and seems a little more interactive. Review of Systems: Impaired ambulation. No CV, , pulmonary, eye system sympt oms on review. Mental Status Exam: The patient is oriented to himself. He is smiling a little more, interactive as I met with him. Insight and judgment, recent and remote memory, attention and concentration, fund of knowledge is poor consistent with his diagnoses. Laboratory Data: Reviewed. Impression: Major neurocognitive disorder Alzheimer vascular with delusion, depression, behavioral disturbance. Impulse control disorder unspecified. Anxiety disorder unspecified. Plan: No change from initial note. Valproic acid level is subtherapeutic at 17 on Depakote Sprinkle 125 mg twice a day. We will increase to 250 mg twice a day. Check CBC, CMP, valproic acid level in 3 days. Rest psychotropics unchanged. Assessment: Vital Signs/I&O: Vital Signs Date Time Temp Pulse Resp B/P (MAP) Pulse Ox O2 Delivery O2 Flow Rate FiO2 03/29/21 06:01 97.8 72 20 108/70 (83) 96 03/28/21 06:17 Room Air I & O 03/28/21 03/28/21 03/29/21 15:00 23:00 07:00 Intake Total 240 ml 120 ml Balance 240 ml 120 ml Labs: Laboratory Tests Test 03/28/21 07:53 Glucose (Fingerstick) 127 mg/dL (70-99) H Current Medications: Meds: Laboratory Tests Test 03/28/21 07:53 Glucose (Fingerstick) 127 mg/dL Current Medications Medications (Trade) Dose Ordered Sig/Cierra Route PRN Reason Start Time Stop Time Status Last Admin Dose Admin Acetaminophen (Tylenol) 650 mg PRN Q6HRS PRN PO MILD PAIN / TEMP > 100.3'F 03/12/21 18:15 03/20/21 05:14 Multi-Ingredient Ointment (Analgesic [place]) 1 kory PRN QID PRN TP MUSCLE PAIN 03/12/21 18:15 Al Hydroxide/Mg Hydroxide (Mylanta Plus Xs) 15 ml PRN AFTMEALHC PRN PO DYSPEPSIA 03/12/21 18:15 Magnesium Hydroxide (Milk Of Magnesia) 2,400 mg PRN QHS PRN PO CONSTIPATION 03/12/21 18:15 03/17/21 21:27 Rivastigmine (Exelon 13.3mg) 1 patch DAILY TD 03/13/21 09:00 03/17/21 16:13 DC 03/17/21 12:09 Gabapentin (Neurontin) 300 mg BID PO 03/12/21 21:00 03/28/21 20:56 Memantine (Namenda) 10 mg BID PO 03/12/21 21:00 03/17/21 16:13 DC 03/17/21 12:08 Mirtazapine (Remeron) 7.5 mg DAILY PO 03/13/21 09:00 03/15/21 12:40 DC 03/15/21 08:18 Venlafaxine HCl (Effexor) 50 mg TID PO 03/13/21 09:00 03/14/21 17:30 DC 03/14/21 17:17 Docusate Sodium (Colace) 100 mg BID PO 03/13/21 09:00 03/15/21 10:48 DC 03/15/21 08:19 Metformin HCl (Glucophage) 1,000 mg BIDWMEALS PO 03/13/21 08:00 03/28/21 17:16 Olanzapine (ZyPREXA ZYDIS) 2.5 mg PRN Q2HR PRN PO PSYCHOSIS 03/13/21 07:30 Trazodone HCl (Desyrel) 50 mg PRN QHS PRN PO INSOMNIA 03/13/21 07:30 03/17/21 20:02 Sertraline HCl (Zoloft) 50 mg DAILY PO 03/15/21 09:00 03/17/21 16:13 DC 03/17/21 12:08 Mirtazapine (Remeron) 7.5 mg HS PO 03/16/21 21:00 03/28/21 20:56 Divalproex Sodium (Depakote Sprinkles) 125 mg 0900,1700 PO 03/17/21 09:00 03/26/21 18:07 DC 03/26/21 15:50 Amoxicillin (Amoxil) 500 mg [id number] PO 03/17/21 21:00 03/24/21 21:00 DC 03/24/21 20:17 Sertraline HCl (Zoloft) 75 mg DAILY PO 03/18/21 09:00 03/28/21 06:22 Lactobacillus Rhamnosus (Culturelle) 1 cap BID PO 03/19/21 21:00 03/28/21 20:56 Divalproex Sodium (Depakote Sprinkles) 250 mg 0900,1700 PO 03/27/21 09:00 03/28/21 17:16 I have reviewed the current psychotropics carefully including drug interactions. Risk benefit ratio favors no change other than as noted in my dictated progress note. Diagnosis: Problems: (1) Dementia with behavioral disturbance (2) Major neurocognitive disorder (3) Anxiety disorder (4) Dementia, vascular, with delusions (5) Dementia, vascular, with depression (6) Dementia in Alzheimer's disease with delusions (7) Dementia in Alzheimer's disease with depression (8) Impulse control disorder BRANDY STEVENS MD March 29, 2021 06:49
--- NOTE | 2021-03-29 07:23 | PDOC ---
Exam Note: Da Note: This note is a late entry for 03/27/2021 covers elements not covered in my initial note. Subjective: The patient was seen individually in the evening of 03/27/2021 with Garrett SHAW, discussed and reviewed the chart. The patient slept 5-1/4 hours previous night. He has been confused, more so in the shower, later he is wandering, ate no breakfast, did eat lunch. I met with him in the evening, Review of Systems: Impaired ambulation. No CV, , pulmonary, eye system symptoms on review. Mental Status Exam: The patient is oriented to himself. Insight and judgment, recent and remote memory, attention and concentration, fund of knowledge is poor consistent with his diagnoses. Laboratory Data: Reviewed. Impression: Major neurocognitive disorder Alzheimer vascular with delusion, depression, behavioral disturbance. Impulse control disorder unspecified. Anxiety disorder unspecified. Plan: No change from initial note. Assessment: Vital Signs/I&O: Vital Signs Date Time Temp Pulse Resp B/P (MAP) Pulse Ox O2 Delivery O2 Flow Rate FiO2 03/29/21 06:01 97.8 72 20 108/70 (83) 96 03/28/21 06:17 Room Air I & O 03/28/21 03/28/21 03/29/21 15:00 23:00 07:00 Intake Total 240 ml 120 ml Balance 240 ml 120 ml Labs: Laboratory Tests Test 03/28/21 07:53 Glucose (Fingerstick) 127 mg/dL (70-99) H Current Medications: Meds: Laboratory Tests Test 03/28/21 07:53 Glucose (Fingerstick) 127 mg/dL Current Medications Medications (Trade) Dose Ordered Sig/Cierra Route PRN Reason Start Time Stop Time Status Last Admin Dose Admin Acetaminophen (Tylenol) 650 mg PRN Q6HRS PRN PO MILD PAIN / TEMP > 100.3'F 03/12/21 18:15 03/20/21 05:14 Multi-Ingredient Ointment (Analgesic [place]) 1 kory PRN QID PRN TP MUSCLE PAIN 03/12/21 18:15 Al Hydroxide/Mg Hydroxide (Mylanta Plus Xs) 15 ml PRN AFTMEALHC PRN PO DYSPEPSIA 03/12/21 18:15 Magnesium Hydroxide (Milk Of Magnesia) 2,400 mg PRN QHS PRN PO CONSTIPATION 03/12/21 18:15 03/17/21 21:27 Rivastigmine (Exelon 13.3mg) 1 patch DAILY TD 03/13/21 09:00 03/17/21 16:13 DC 03/17/21 12:09 Gabapentin (Neurontin) 300 mg BID PO 03/12/21 21:00 03/28/21 20:56 Memantine (Namenda) 10 mg BID PO 03/12/21 21:00 03/17/21 16:13 DC 03/17/21 12:08 Mirtazapine (Remeron) 7.5 mg DAILY PO 03/13/21 09:00 03/15/21 12:40 DC 03/15/21 08:18 Venlafaxine HCl (Effexor) 50 mg TID PO 03/13/21 09:00 03/14/21 17:30 DC 03/14/21 17:17 Docusate Sodium (Colace) 100 mg BID PO 03/13/21 09:00 03/15/21 10:48 DC 03/15/21 08:19 Metformin HCl (Glucophage) 1,000 mg BIDWMEALS PO 03/13/21 08:00 03/28/21 17:16 Olanzapine (ZyPREXA ZYDIS) 2.5 mg PRN Q2HR PRN PO PSYCHOSIS 03/13/21 07:30 Trazodone HCl (Desyrel) 50 mg PRN QHS PRN PO INSOMNIA 03/13/21 07:30 03/17/21 20:02 Sertraline HCl (Zoloft) 50 mg DAILY PO 03/15/21 09:00 03/17/21 16:13 DC 03/17/21 12:08 Mirtazapine (Remeron) 7.5 mg HS PO 03/16/21 21:00 03/28/21 20:56 Divalproex Sodium (Depakote Sprinkles) 125 mg 0900,1700 PO 03/17/21 09:00 03/26/21 18:07 DC 03/26/21 15:50 Amoxicillin (Amoxil) 500 mg [id number] PO 03/17/21 21:00 03/24/21 21:00 DC 03/24/21 20:17 Sertraline HCl (Zoloft) 75 mg DAILY PO 03/18/21 09:00 03/28/21 06:22 Lactobacillus Rhamnosus (Culturelle) 1 cap BID PO 03/19/21 21:00 03/28/21 20:56 Divalproex Sodium (Depakote Sprinkles) 250 mg 0900,1700 PO 03/27/21 09:00 03/28/21 17:16 I have reviewed the current psychotropics carefully including drug interactions. Risk benefit ratio favors no change other than as noted in my dictated progress note. Diagnosis: Problems: (1) Dementia with behavioral disturbance (2) Major neurocognitive disorder (3) Anxiety disorder (4) Dementia, vascular, with delusions (5) Dementia, vascular, with depression (6) Dementia in Alzheimer's disease with delusions (7) Dementia in Alzheimer's disease with depression (8) Impulse control disorder BRANDY STEVENS MD March 29, 2021 07:23
--- NOTE | 2021-03-29 07:48 | PDOC ---
Exam Note: Da Note: This note is a late entry for 03/28/2021 covers elements not covered in my initial note. Subjective: The patient was seen individually in the evening of 03/28/2021 with Garrett SHAW, discussed and reviewed the chart. The patient slept 10 hours previous night. Overall he is doing well. He remains confused, has difficulty expressing himself. Review of Systems: Impaired ambulation. No CV, , pulmonary, eye system symptoms on review. Reliability poor. Mental Status Exam: The patient is oriented to himself. I met with him in his room. Insight and judgment, recent and remote memory, attention and concentration, fund of knowledge is poor consistent with his diagnoses. Laboratory Data: Reviewed. Impression: Major neurocognitive disorder Alzheimer vascular with delusion, depression, behavioral disturbance. Impulse control disorder unspecified. Anxiety disorder unspecified. Plan: No change from initial note. Assessment: Vital Signs/I&O: Vital Signs Date Time Temp Pulse Resp B/P (MAP) Pulse Ox O2 Delivery O2 Flow Rate FiO2 03/29/21 06:01 97.8 72 20 108/70 (83) 96 03/28/21 06:17 Room Air I & O 03/28/21 03/28/21 03/29/21 14:59 22:59 06:59 Intake Total 240 ml 120 ml Balance 240 ml 120 ml Labs: Laboratory Tests Test 03/28/21 07:53 Glucose (Fingerstick) 127 mg/dL (70-99) H Current Medications: Meds: Laboratory Tests Test 03/28/21 07:53 Glucose (Fingerstick) 127 mg/dL Current Medications Medications (Trade) Dose Ordered Sig/Cierra Route PRN Reason Start Time Stop Time Status Last Admin Dose Admin Acetaminophen (Tylenol) 650 mg PRN Q6HRS PRN PO MILD PAIN / TEMP > 100.3'F 03/12/21 18:15 03/20/21 05:14 Multi-Ingredient Ointment (Analgesic [place]) 1 kory PRN QID PRN TP MUSCLE PAIN 03/12/21 18:15 Al Hydroxide/Mg Hydroxide (Mylanta Plus Xs) 15 ml PRN AFTMEALHC PRN PO DYSPEPSIA 03/12/21 18:15 Magnesium Hydroxide (Milk Of Magnesia) 2,400 mg PRN QHS PRN PO CONSTIPATION 03/12/21 18:15 03/17/21 21:27 Rivastigmine (Exelon 13.3mg) 1 patch DAILY TD 03/13/21 09:00 03/17/21 16:13 DC 03/17/21 12:09 Gabapentin (Neurontin) 300 mg BID PO 03/12/21 21:00 03/28/21 20:56 Memantine (Namenda) 10 mg BID PO 03/12/21 21:00 03/17/21 16:13 DC 03/17/21 12:08 Mirtazapine (Remeron) 7.5 mg DAILY PO 03/13/21 09:00 03/15/21 12:40 DC 03/15/21 08:18 Venlafaxine HCl (Effexor) 50 mg TID PO 03/13/21 09:00 03/14/21 17:30 DC 03/14/21 17:17 Docusate Sodium (Colace) 100 mg BID PO 03/13/21 09:00 03/15/21 10:48 DC 03/15/21 08:19 Metformin HCl (Glucophage) 1,000 mg BIDWMEALS PO 03/13/21 08:00 03/28/21 17:16 Olanzapine (ZyPREXA ZYDIS) 2.5 mg PRN Q2HR PRN PO PSYCHOSIS 03/13/21 07:30 Trazodone HCl (Desyrel) 50 mg PRN QHS PRN PO INSOMNIA 03/13/21 07:30 03/17/21 20:02 Sertraline HCl (Zoloft) 50 mg DAILY PO 03/15/21 09:00 03/17/21 16:13 DC 03/17/21 12:08 Mirtazapine (Remeron) 7.5 mg HS PO 03/16/21 21:00 03/28/21 20:56 Divalproex Sodium (Depakote Sprinkles) 125 mg 0900,1700 PO 03/17/21 09:00 03/26/21 18:07 DC 03/26/21 15:50 Amoxicillin (Amoxil) 500 mg [id number] PO 03/17/21 21:00 03/24/21 21:00 DC 03/24/21 20:17 Sertraline HCl (Zoloft) 75 mg DAILY PO 03/18/21 09:00 03/28/21 06:22 Lactobacillus Rhamnosus (Culturelle) 1 cap BID PO 03/19/21 21:00 03/28/21 20:56 Divalproex Sodium (Depakote Sprinkles) 250 mg 0900,1700 PO 03/27/21 09:00 03/28/21 17:16 I have reviewed the current psychotropics carefully including drug interactions. Risk benefit ratio favors no change other than as noted in my dictated progress note. 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
[2021-03-29] MEDS: DIVALPROEX 125 MG CAP.SPRINK PO SCH ×2 (08:41→17:20)
[2021-03-29] MEDS: SERTRALINE 25 MG TABLET. PO SCH (08:41)
[2021-03-29] MEDS: LACTOBACILLUS RHAMNOSUS GG 1 CAPSULE. PO SCH ×2 (08:41→20:11)
[2021-03-29] MEDS: metFORMIN 500 MG TABLET PO SCH ×2 (08:41→17:20)
[2021-03-29] MEDS: GABAPENTIN 300 MG CAPSULE. PO SCH ×2 (08:41→20:11)
[2021-03-29 15:46] VITALS: BP 98/61
[2021-03-29] MEDS: MIRTAZAPINE 7.5 MG TABLET. PO SCH (20:11)
--- NOTE | 2021-03-29 21:52 | PDOC ---
Exam Note: Da Note: Please also refer to the separate dictated note~for this date of service dictated separately.~Patient seen individually. Discussed the patient with Nursing staff reviewed the chart.~Reviewed interim history and current functioning. Reviewed vital signs,~Labs/ Radiology~and current medications noted below. Continue current treatment with the changes noted in the dictated addendum note Assessment: Vital Signs/I&O: Vital Signs Date Time Temp Pulse Resp B/P (MAP) Pulse Ox O2 Delivery O2 Flow Rate FiO2 03/29/21 15:46 97.5 81 17 98/61 (73) 96 03/28/21 06:17 Room Air I & O 03/28/21 03/28/21 03/29/21 15:00 23:00 07:00 Intake Total 240 ml 120 ml Balance 240 ml 120 ml Labs: Laboratory Tests Test 03/29/21 08:17 Glucose (Fingerstick) 127 mg/dL (70-99) H Current Medications: Meds: Laboratory Tests Test 03/29/21 08:17 Glucose (Fingerstick) 127 mg/dL Current Medications Medications (Trade) Dose Ordered Sig/Cierra Route PRN Reason Start Time Stop Time Status Last Admin Dose Admin Acetaminophen (Tylenol) 650 mg PRN Q6HRS PRN PO MILD PAIN / TEMP > 100.3'F 03/12/21 18:15 03/20/21 05:14 Multi-Ingredient Ointment (Analgesic [place]) 1 kory PRN QID PRN TP MUSCLE PAIN 03/12/21 18:15 Al Hydroxide/Mg Hydroxide (Mylanta Plus Xs) 15 ml PRN AFTMEALHC PRN PO DYSPEPSIA 03/12/21 18:15 Magnesium Hydroxide (Milk Of Magnesia) 2,400 mg PRN QHS PRN PO CONSTIPATION 03/12/21 18:15 03/17/21 21:27 Rivastigmine (Exelon 13.3mg) 1 patch DAILY TD 03/13/21 09:00 03/17/21 16:13 DC 03/17/21 12:09 Gabapentin (Neurontin) 300 mg BID PO 03/12/21 21:00 03/29/21 20:11 Memantine (Namenda) 10 mg BID PO 03/12/21 21:00 03/17/21 16:13 DC 03/17/21 12:08 Mirtazapine (Remeron) 7.5 mg DAILY PO 03/13/21 09:00 03/15/21 12:40 DC 03/15/21 08:18 Venlafaxine HCl (Effexor) 50 mg TID PO 03/13/21 09:00 03/14/21 17:30 DC 03/14/21 17:17 Docusate Sodium (Colace) 100 mg BID PO 03/13/21 09:00 03/15/21 10:48 DC 03/15/21 08:19 Metformin HCl (Glucophage) 1,000 mg BIDWMEALS PO 03/13/21 08:00 03/29/21 17:20 Olanzapine (ZyPREXA ZYDIS) 2.5 mg PRN Q2HR PRN PO PSYCHOSIS 03/13/21 07:30 Trazodone HCl (Desyrel) 50 mg PRN QHS PRN PO INSOMNIA 03/13/21 07:30 03/17/21 20:02 Sertraline HCl (Zoloft) 50 mg DAILY PO 03/15/21 09:00 03/17/21 16:13 DC 03/17/21 12:08 Mirtazapine (Remeron) 7.5 mg HS PO 03/16/21 21:00 03/29/21 20:11 Divalproex Sodium (Depakote Sprinkles) 125 mg 0900,1700 PO 03/17/21 09:00 03/26/21 18:07 DC 03/26/21 15:50 Amoxicillin (Amoxil) 500 mg [id number] PO 03/17/21 21:00 03/24/21 21:00 DC 03/24/21 20:17 Sertraline HCl (Zoloft) 75 mg DAILY PO 03/18/21 09:00 03/29/21 08:41 Lactobacillus Rhamnosus (Culturelle) 1 cap BID PO 03/19/21 21:00 03/29/21 20:11 Divalproex Sodium (Depakote Sprinkles) 250 mg 0900,1700 PO 03/27/21 09:00 03/29/21 17:20 I have reviewed the current psychotropics carefully including drug interactions. Risk benefit ratio favors no change other than as noted in my dictated progress note. Diagnosis: Problems: (1) Dementia with behavioral disturbance (2) Major neurocognitive disorder (3) Anxiety disorder (4) Dementia, vascular, with delusions (5) Dementia, vascular, with depression (6) Dementia in Alzheimer's disease with delusions (7) Dementia in Alzheimer's disease with depression (8) Impulse control disorder BRANDY STEVENS MD March 29, 2021 21:52
[2021-03-30 05:02] VITALS: BP 105/66
[2021-03-30 06:23] LABS: BASO % 1 % (0-3); EOS # 0.1 x10^3/uL (0.0-0.7); EOS % 3 % (0-3); HEMATOCRIT 42.8 % (39.0-53.0); HEMOGLOBIN 14.3 g/dL (13.0-17.5); LYMPH # 1.7 x10^3/uL (1.0-4.8); LYMPH % 37 % (24-48); MEAN CORPUSCULAR HEMOGLOBIN 29 pg (25-35); MEAN CORPUSCULAR HGB CONC 33 g/dL (31-37); MEAN CORPUSCULAR VOLUME 88 fL (79-100); MONO # 0.4 x10^3/uL (0.0-1.1); MONO % 9 % (0-9); NEUT # 2.4 x10^3uL (1.8-7.7); NEUT % 51 % (31-73); PLATELET COUNT 202 x10^3/uL (140-400); RED BLOOD COUNT 4.85 x10^6/uL (4.30-5.70); RED CELL DISTRIBUTION WIDTH 13.2 % (11.5-14.5); WHITE BLOOD COUNT 4.7 x10^3/uL (4.0-11.0)
[2021-03-30 06:38] LABS: ALBUMIN/GLOBULIN RATIO 0.7 (1.0-1.7); ALK PHOS 87 U/L (46-116); ALT (SGPT) 28 U/L (16-63); ANION GAP 5 (6-14); AST (SGOT) 21 U/L (15-37); BLOOD UREA NITROGEN 14 mg/dL (8-26); BUN/CREATININE RATIO 14 (6-20); CARBON DIOXIDE 31 mmol/L (21-32); CHLORIDE 106 mmol/L (98-107); GFR 75.5; GLUCOSE 105 mg/dL (70-99); POTASSIUM 3.7 mmol/L (3.5-5.1); SODIUM 142 mmol/L (136-145); TOTAL BILIRUBIN 0.2 mg/dL (0.2-1.0); TOTAL PROTEIN 7.1 g/dL (6.4-8.2)
[2021-03-30 06:41] LABS: VAL ACID 36 mcg/mL (50-100)
[2021-03-30] MEDS: GABAPENTIN 300 MG CAPSULE. PO SCH ×2 (08:14→21:16)
[2021-03-30] MEDS: metFORMIN 500 MG TABLET PO SCH ×2 (08:14→17:03)
[2021-03-30] MEDS: SERTRALINE 25 MG TABLET. PO SCH (08:14)
[2021-03-30] MEDS: DIVALPROEX 125 MG CAP.SPRINK PO SCH ×2 (08:14→17:03)
[2021-03-30] MEDS: LACTOBACILLUS RHAMNOSUS GG 1 CAPSULE. PO SCH ×2 (08:14→21:16)
[2021-03-30 15:27] VITALS: BP 124/76
--- NOTE | 2021-03-30 18:09 | TX PLAN ---
Interdisciplinary Tx Plan Admission Information Mar 12, 2021 at 15:55 Legal Status (on Admission): Voluntary DPOA/Guardian Name: Lissy Pleitez Contact Other Contact Name: [facility] Other Contact Verified Code Status: DNR Allergies: Coded Allergies: No Known Drug Allergies (Unverified , 02/26/19) Diagnoses Primary Diagnosis: Bipolar D/O recent episode, manic Reasons for Admission: Combative, Confusion/Disoriented, Poor impulse control, Other Problem in Patient's Words: His behavior is changing and becoming aggressive Additional Admission Comments: According to the intake, pt was urinating and defecating on the floor, wandering with elopement attempts, pulling fire alarms, hitting staff on the head and in the face, agitated, pacing, and believes he is being stalked Problems Active Problems: wandering confused disorganized Inactive Problems: medication compliance no aggression noted Pt Strengths/Limitations Ability for [place]: Poor Cognitive Functioning/Ability: Poor Communication Skills/Ability: Poor Financial Resources: Fair Insight/Judgement: Poor Intellectual Ability: Poor Physical Health: Poor Social Skills: Poor Stability in Family: Good Stability in School/Work: Poor Verbal Skills: Poor Discharge Criteria Discharge Criteria: No need for close observ., Adequate arrangements @DC, Improved behavior, Improved mood/thought Preliminary Discharge Plan Preliminary DC Plan: Current Living Arrange., Other Special Precautions Fall Risk: Low Initial D/C Plan Pt to potentially [facility] to [facility] Identified Discharge Needs: Pt sister believes that pt will return to placement; however has been told she needs to call and see if other placements have availability. Currently Utilized Resources Currently Utilized Resources/P: Primary Care Physician Identified Problems/Hx/Goals Objectives/Short-Term Goals Short Term Goals: Control abnormal behavior, Dec. Aggression, Dec. Outbursts, Medication Stabilization, Promote Coping Skill Short Term Goals in Patient's: N/A Interventions/Frequency Staff Interventions/Frequency&: Psychiatrist to assess pt at least 3x per week for medication mgmt. Social Work to assess pt at least 2x per week to identify barriers to care and discharge planning goals. Nursing to assess for medication effects, behavior modification and completion of 15 minute checks daily. Encourage participation in group activities (if applicable) or 1:1 engagement based off activity dept goals. 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 I am not sure what I am supposed to do next, but if you can guide me, I'll do what I can. Treatment Plan Explained Patient/Chemical Dependency Attendant had this treatment plan explained to him/her as indicated by the signature below and has been given the opportunity to ask questions and make suggestions: Date: Patient/Chemical Dependency Attendant Signature: Status Update Update Pt is eating roughly 50% of meals with assistance and sleeping on average 7.5 hours per night. Pt is calm and continues to be withdrawn/isolative. Pt does not participate in any groups, but is medication compliant with meds crushed in pudding. Pt currently has a discharge for the beginning of next week. SW is working with pt sister and the facility pt came from to find placement. In the event that does not happen by time of discharge, [facility] will take pt back and continue to evaluate from there. SHASTA SAEED March 30, 2021 18:09
[2021-03-30] MEDS: MIRTAZAPINE 7.5 MG TABLET. PO SCH (21:16)
--- NOTE | 2021-03-30 22:43 | PDOC ---
Exam Note: Da Note: Please also refer to the separate dictated note~for this date of service dictated separately.~Patient seen individually. Discussed the patient with Nursing staff reviewed the chart.~Reviewed interim history and current functioning. Reviewed vital signs,~Labs/ Radiology~and current medications noted below. Continue current treatment with the changes noted in the dictated addendum note Assessment: Vital Signs/I&O: Vital Signs Date Time Temp Pulse Resp B/P (MAP) Pulse Ox O2 Delivery O2 Flow Rate FiO2 03/30/21 15:27 97.3 71 18 124/76 (92) 93 03/28/21 06:17 Room Air I & O 03/29/21 03/29/21 03/30/21 15:00 23:00 07:00 Intake Total 240 ml 0 ml Balance 240 ml 0 ml Labs: Laboratory Tests Test 03/30/21 06:09 03/30/21 07:38 White Blood Count 4.7 x10^3/uL (4.0-11.0) Red Blood Count 4.85 x10^6/uL (4.30-5.70) Hemoglobin 14.3 g/dL (13.0-17.5) Hematocrit 42.8 % (39.0-53.0) Mean Corpuscular Volume 88 fL (79-100) Mean Corpuscular Hemoglobin 29 pg (25-35) Mean Corpuscular Hemoglobin Concent 33 g/dL (31-37) Red Cell Distribution Width 13.2 % (11.5-14.5) Platelet Count 202 x10^3/uL (140-400) Neutrophils (%) (Auto) 51 % (31-73) Lymphocytes (%) (Auto) 37 % (24-48) Monocytes (%) (Auto) 9 % (0-9) Eosinophils (%) (Auto) 3 % (0-3) Basophils (%) (Auto) 1 % (0-3) Neutrophils # (Auto) 2.4 x10^3uL (1.8-7.7) Lymphocytes # (Auto) 1.7 x10^3/uL (1.0-4.8) Monocytes # (Auto) 0.4 x10^3/uL (0.0-1.1) Eosinophils # (Auto) 0.1 x10^3/uL (0.0-0.7) Basophils # (Auto) 0.0 x10^3/uL (0.0-0.2) Sodium Level 142 mmol/L (136-145) Potassium Level 3.7 mmol/L (3.5-5.1) Chloride Level 106 mmol/L (98-107) Carbon Dioxide Level 31 mmol/L (21-32) Anion Gap 5 (6-14) L Blood Urea Nitrogen 14 mg/dL (8-26) Creatinine 1.0 mg/dL (0.7-1.3) Estimated GFR (Cockcroft-Gault) 75.5 BUN/Creatinine Ratio 14 (6-20) Glucose Level 105 mg/dL (70-99) H Calcium Level 9.0 mg/dL (8.5-10.1) Total Bilirubin 0.2 mg/dL (0.2-1.0) Aspartate Amino Transferase (AST) 21 U/L (15-37) Alanine Aminotransferase (ALT) 28 U/L (16-63) Alkaline Phosphatase 87 U/L (46-116) Total Protein 7.1 g/dL (6.4-8.2) Albumin 3.0 g/dL (3.4-5.0) L Albumin/Globulin Ratio 0.7 (1.0-1.7) L Valproic Acid Level 36 mcg/mL (50-100) L Valproic Acid Last Dose Date 03/29/21 Valproic Acid Last Dose Time 1700 Glucose (Fingerstick) 109 mg/dL (70-99) H Current Medications: Meds: Laboratory Tests Test 03/30/21 06:09 03/30/21 07:38 White Blood Count 4.7 x10^3/uL Red Blood Count 4.85 x10^6/uL Hemoglobin 14.3 g/dL Hematocrit 42.8 % Mean Corpuscular Volume 88 fL Mean Corpuscular Hemoglobin 29 pg Mean Corpuscular Hemoglobin Concent 33 g/dL Red Cell Distribution Width 13.2 % Platelet Count 202 x10^3/uL Neutrophils (%) (Auto) 51 % Lymphocytes (%) (Auto) 37 % Monocytes (%) (Auto) 9 % Eosinophils (%) (Auto) 3 % Basophils (%) (Auto) 1 % Neutrophils # (Auto) 2.4 x10^3uL Lymphocytes # (Auto) 1.7 x10^3/uL Monocytes # (Auto) 0.4 x10^3/uL Eosinophils # (Auto) 0.1 x10^3/uL Basophils # (Auto) 0.0 x10^3/uL Sodium Level 142 mmol/L Potassium Level 3.7 mmol/L Chloride Level 106 mmol/L Carbon Dioxide Level 31 mmol/L Anion Gap 5 Blood Urea Nitrogen 14 mg/dL Creatinine 1.0 mg/dL Estimated GFR (Cockcroft-Gault) 75.5 BUN/Creatinine Ratio 14 Glucose Level 105 mg/dL Calcium Level 9.0 mg/dL Total Bilirubin 0.2 mg/dL Aspartate Amino Transf (AST/SGOT) 21 U/L Alanine Aminotransferase (ALT/SGPT) 28 U/L Alkaline Phosphatase 87 U/L Total Protein 7.1 g/dL Albumin 3.0 g/dL Albumin/Globulin Ratio 0.7 Valproic Acid (Depakene) Level 36 mcg/mL Valproic Acid Last Dose Date 03/29/21 Valproic Acid Last Dose Time 1700 Glucose (Fingerstick) 109 mg/dL Current Medications Medications (Trade) Dose Ordered Sig/Cierra Route PRN Reason Start Time Stop Time Status Last Admin Dose Admin Acetaminophen (Tylenol) 650 mg PRN Q6HRS PRN PO MILD PAIN / TEMP > 100.3'F 03/12/21 18:15 03/20/21 05:14 Multi-Ingredient Ointment (Analgesic [place]) 1 kory PRN QID PRN TP MUSCLE PAIN 03/12/21 18:15 Al Hydroxide/Mg Hydroxide (Mylanta Plus Xs) 15 ml PRN AFTMEALHC PRN PO DYSPEPSIA 03/12/21 18:15 Magnesium Hydroxide (Milk Of Magnesia) 2,400 mg PRN QHS PRN PO CONSTIPATION 03/12/21 18:15 03/17/21 21:27 Rivastigmine (Exelon 13.3mg) 1 patch DAILY TD 03/13/21 09:00 03/17/21 16:13 DC 03/17/21 12:09 Gabapentin (Neurontin) 300 mg BID PO 03/12/21 21:00 03/30/21 21:16 Memantine (Namenda) 10 mg BID PO 03/12/21 21:00 03/17/21 16:13 DC 03/17/21 12:08 Mirtazapine (Remeron) 7.5 mg DAILY PO 03/13/21 09:00 03/15/21 12:40 DC 03/15/21 08:18 Venlafaxine HCl (Effexor) 50 mg TID PO 03/13/21 09:00 03/14/21 17:30 DC 03/14/21 17:17 Docusate Sodium (Colace) 100 mg BID PO 03/13/21 09:00 03/15/21 10:48 DC 03/15/21 08:19 Metformin HCl (Glucophage) 1,000 mg BIDWMEALS PO 03/13/21 08:00 03/30/21 17:03 Olanzapine (ZyPREXA ZYDIS) 2.5 mg PRN Q2HR PRN PO PSYCHOSIS 03/13/21 07:30 Trazodone HCl (Desyrel) 50 mg PRN QHS PRN PO INSOMNIA 03/13/21 07:30 03/17/21 20:02 Sertraline HCl (Zoloft) 50 mg DAILY PO 03/15/21 09:00 03/17/21 16:13 DC 03/17/21 12:08 Mirtazapine (Remeron) 7.5 mg HS PO 03/16/21 21:00 03/30/21 21:16 Divalproex Sodium (Depakote Sprinkles) 125 mg 0900,1700 PO 03/17/21 09:00 03/26/21 18:07 DC 03/26/21 15:50 Amoxicillin (Amoxil) 500 mg [id number] PO 03/17/21 21:00 03/24/21 21:00 DC 03/24/21 20:17 Sertraline HCl (Zoloft) 75 mg DAILY PO 03/18/21 09:00 03/30/21 08:14 Lactobacillus Rhamnosus (Culturelle) 1 cap BID PO 03/19/21 21:00 03/30/21 21:16 Divalproex Sodium (Depakote Sprinkles) 250 mg 0900,1700 PO 03/27/21 09:00 03/30/21 17:03 I have reviewed the current psychotropics carefully including drug interactions. Risk benefit ratio favors no change other than as noted in my dictated progress note. 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
[2021-03-31 06:18] VITALS: BP 98/62
--- NOTE | 2021-03-31 07:49 | PDOC ---
Exam Note: Da Note: This note is a late entry for 03/29/2021 covers elements not covered in my initial note. Subjective: The patient was reviewed in the morning of 03/29/2021 for a treatment team meeting with Edie Amanda, Dominique Mckay and Felicita (social media intern), Letty, activity therapy and Leigha SHAW, discussed and reviewed the chart. The patient slept 7-1/4 hours previous night. Sleeping average 7 hours. Appetite is 75%. He is compliance with medications, calm. He remains confused. He was less sedated today in the morning. He was up for breakfast which is an improvement. I met with him in his room in the evening. In fact he was in someone elses room, oblivious of where he was. Review of Systems: Impaired ambulation. No CV, , pulmonary, eye system symptoms on review. Reliability poor. Mental Status Exam: The patient is oriented to himself. I met with him in his room. Insight and judgment, recent and remote memory, attention and conc entration, fund of knowledge is poor consistent with his diagnoses. Laboratory Data: Reviewed. Impression: Major neurocognitive disorder Alzheimer vascular with delusion, depression, behavioral disturbance. Impulse control disorder unspecified. Anxiety disorder unspecified. Plan: No change from initial note. Assessment: Vital Signs/I&O: Vital Signs Date Time Temp Pulse Resp B/P (MAP) Pulse Ox O2 Delivery O2 Flow Rate FiO2 03/31/21 06:18 97.9 68 18 98/62 (74) 96 03/28/21 06:17 Room Air I & O 03/30/21 03/30/21 03/31/21 15:00 23:00 07:00 Intake Total 720 ml 360 ml Balance 720 ml 360 ml Labs: Laboratory Tests Test 03/31/21 07:38 Glucose (Fingerstick) 98 mg/dL (70-99) Current Medications: Meds: Laboratory Tests Test 03/31/21 07:38 Glucose (Fingerstick) 98 mg/dL Current Medications Medications (Trade) Dose Ordered Sig/Cierra Route PRN Reason Start Time Stop Time Status Last Admin Dose Admin Acetaminophen (Tylenol) 650 mg PRN Q6HRS PRN PO MILD PAIN / TEMP > 100.3'F 03/12/21 18:15 03/20/21 05:14 Multi-Ingredient Ointment (Analgesic [place]) 1 kory PRN QID PRN TP MUSCLE PAIN 03/12/21 18:15 Al Hydroxide/Mg Hydroxide (Mylanta Plus Xs) 15 ml PRN AFTMEALHC PRN PO DYSPEPSIA 03/12/21 18:15 Magnesium Hydroxide (Milk Of Magnesia) 2,400 mg PRN QHS PRN PO CONSTIPATION 03/12/21 18:15 03/17/21 21:27 Rivastigmine (Exelon 13.3mg) 1 patch DAILY TD 03/13/21 09:00 03/17/21 16:13 DC 03/17/21 12:09 Gabapentin (Neurontin) 300 mg BID PO 03/12/21 21:00 03/30/21 21:16 Memantine (Namenda) 10 mg BID PO 03/12/21 21:00 03/17/21 16:13 DC 03/17/21 12:08 Mirtazapine (Remeron) 7.5 mg DAILY PO 03/13/21 09:00 03/15/21 12:40 DC 03/15/21 08:18 Venlafaxine HCl (Effexor) 50 mg TID PO 03/13/21 09:00 03/14/21 17:30 DC 03/14/21 17:17 Docusate Sodium (Colace) 100 mg BID PO 03/13/21 09:00 03/15/21 10:48 DC 03/15/21 08:19 Metformin HCl (Glucophage) 1,000 mg BIDWMEALS PO 03/13/21 08:00 03/30/21 17:03 Olanzapine (ZyPREXA ZYDIS) 2.5 mg PRN Q2HR PRN PO PSYCHOSIS 03/13/21 07:30 Trazodone HCl (Desyrel) 50 mg PRN QHS PRN PO INSOMNIA 03/13/21 07:30 03/17/21 20:02 Sertraline HCl (Zoloft) 50 mg DAILY PO 03/15/21 09:00 03/17/21 16:13 DC 03/17/21 12:08 Mirtazapine (Remeron) 7.5 mg HS PO 03/16/21 21:00 03/30/21 21:16 Divalproex Sodium (Depakote Sprinkles) 125 mg 0900,1700 PO 03/17/21 09:00 03/26/21 18:07 DC 03/26/21 15:50 Amoxicillin (Amoxil) 500 mg [id number] PO 03/17/21 21:00 03/24/21 21:00 DC 03/24/21 20:17 Sertraline HCl (Zoloft) 75 mg DAILY PO 03/18/21 09:00 03/30/21 08:14 Lactobacillus Rhamnosus (Culturelle) 1 cap BID PO 03/19/21 21:00 03/30/21 21:16 Divalproex Sodium (Depakote Sprinkles) 250 mg 0900,1700 PO 03/27/21 09:00 03/30/21 17:03 I have reviewed the current psychotropics carefully including drug interactions. Risk benefit ratio favors no change other than as noted in my dictated progress note. Diagnosis: Problems: (1) Dementia with behavioral disturbance (2) Major neurocognitive disorder (3) Anxiety disorder (4) Dementia, vascular, with delusions (5) Dementia, vascular, with depression (6) Dementia in Alzheimer's disease with delusions (7) Dementia in Alzheimer's disease with depression (8) Impulse control disorder BRANDY STEVENS MD March 31, 2021 07:49
[2021-03-31] MEDS: DIVALPROEX 125 MG CAP.SPRINK PO SCH ×2 (08:11→18:24)
[2021-03-31] MEDS: SERTRALINE 25 MG TABLET. PO SCH (08:12)
[2021-03-31] MEDS: GABAPENTIN 300 MG CAPSULE. PO SCH ×2 (08:12→20:37)
[2021-03-31] MEDS: LACTOBACILLUS RHAMNOSUS GG 1 CAPSULE. PO SCH ×2 (08:12→20:37)
[2021-03-31] MEDS: metFORMIN 500 MG TABLET PO SCH ×2 (08:12→18:24)
[2021-03-31 16:10] VITALS: BP 125/75
[2021-03-31] MEDS: MIRTAZAPINE 7.5 MG TABLET. PO SCH (20:37)
--- NOTE | 2021-03-31 21:54 | PDOC ---
Exam Note: Da Note: Please also refer to the separate dictated note~for this date of service dictated separately.~Patient seen individually. Discussed the patient with Nursing staff reviewed the chart.~Reviewed interim history and current functioning. Reviewed vital signs,~Labs/ Radiology~and current medications noted below. Continue current treatment with the changes noted in the dictated addendum note Assessment: Vital Signs/I&O: Vital Signs Date Time Temp Pulse Resp B/P (MAP) Pulse Ox O2 Delivery O2 Flow Rate FiO2 03/31/21 16:10 97.6 63 19 125/75 (92) 98 Room Air I & O 03/30/21 03/30/21 03/31/21 15:00 23:00 07:00 Intake Total 720 ml 360 ml Balance 720 ml 360 ml Labs: Laboratory Tests Test 03/31/21 07:38 Glucose (Fingerstick) 98 mg/dL (70-99) Current Medications: Meds: Laboratory Tests Test 03/31/21 07:38 Glucose (Fingerstick) 98 mg/dL Current Medications Medications (Trade) Dose Ordered Sig/Cierra Route PRN Reason Start Time Stop Time Status Last Admin Dose Admin Acetaminophen (Tylenol) 650 mg PRN Q6HRS PRN PO MILD PAIN / TEMP > 100.3'F 03/12/21 18:15 03/20/21 05:14 Multi-Ingredient Ointment (Analgesic [place]) 1 kory PRN QID PRN TP MUSCLE PAIN 03/12/21 18:15 Al Hydroxide/Mg Hydroxide (Mylanta Plus Xs) 15 ml PRN AFTMEALHC PRN PO DYSPEPSIA 03/12/21 18:15 Magnesium Hydroxide (Milk Of Magnesia) 2,400 mg PRN QHS PRN PO CONSTIPATION 03/12/21 18:15 03/17/21 21:27 Rivastigmine (Exelon 13.3mg) 1 patch DAILY TD 03/13/21 09:00 03/17/21 16:13 DC 03/17/21 12:09 Gabapentin (Neurontin) 300 mg BID PO 03/12/21 21:00 03/31/21 20:37 Memantine (Namenda) 10 mg BID PO 03/12/21 21:00 03/17/21 16:13 DC 03/17/21 12:08 Mirtazapine (Remeron) 7.5 mg DAILY PO 03/13/21 09:00 03/15/21 12:40 DC 03/15/21 08:18 Venlafaxine HCl (Effexor) 50 mg TID PO 03/13/21 09:00 03/14/21 17:30 DC 03/14/21 17:17 Docusate Sodium (Colace) 100 mg BID PO 03/13/21 09:00 03/15/21 10:48 DC 03/15/21 08:19 Metformin HCl (Glucophage) 1,000 mg BIDWMEALS PO 03/13/21 08:00 03/31/21 18:24 Olanzapine (ZyPREXA ZYDIS) 2.5 mg PRN Q2HR PRN PO PSYCHOSIS 03/13/21 07:30 Trazodone HCl (Desyrel) 50 mg PRN QHS PRN PO INSOMNIA 03/13/21 07:30 03/17/21 20:02 Sertraline HCl (Zoloft) 50 mg DAILY PO 03/15/21 09:00 03/17/21 16:13 DC 03/17/21 12:08 Mirtazapine (Remeron) 7.5 mg HS PO 03/16/21 21:00 03/31/21 20:37 Divalproex Sodium (Depakote Sprinkles) 125 mg 0900,1700 PO 03/17/21 09:00 03/26/21 18:07 DC 03/26/21 15:50 Amoxicillin (Amoxil) 500 mg [id number] PO 03/17/21 21:00 03/24/21 21:00 DC 03/24/21 20:17 Sertraline HCl (Zoloft) 75 mg DAILY PO 03/18/21 09:00 03/31/21 08:12 Lactobacillus Rhamnosus (Culturelle) 1 cap BID PO 03/19/21 21:00 03/31/21 20:37 Divalproex Sodium (Depakote Sprinkles) 250 mg 0900,1700 PO 03/27/21 09:00 03/31/21 18:24 I have reviewed the current psychotropics carefully including drug interactions. Risk benefit ratio favors no change other than as noted in my dictated progress note. Diagnosis: Problems: (1) Major neurocognitive disorder (2) Anxiety disorder (3) Dementia, vascular, with delusions (4) Dementia, vascular, with depression (5) Dementia in Alzheimer's disease with delusions (6) Dementia in Alzheimer's disease with depression (7) Impulse control disorder (8) Dementia with behavioral disturbance BRANDY STEVENS MD March 31, 2021 21:54
[2021-04-01 06:36] VITALS: BP 148/48
--- NOTE | 2021-04-01 07:01 | PDOC ---
Exam Note: Da Note: This note is a late entry for 03/30/2021 covers elements not covered in my initial note. Subjective: The patient was seen individually in the evening of 03/30/2021 with Leigha SHAW, discussed and reviewed the chart. The patient slept 6-1/2 hours previous night. He has been more confused, but more alert today on 03/30. He is unable to follow directions. We will check valproic acid level. Review of Systems: Impaired ambulation. No CV, , pulmonary, eye system symptoms on review. Reliability poor. Mental Status Exam: The patient is oriented to himself. I met with him in his room. Insight and judgment, recent and remote memory, attention and concentration, fund of knowledge is poor consistent with his diagnoses. Laboratory Data: Reviewed. Impression: Major neurocognitive disorder Alzheimer vascular with delusion, depression, behavioral disturbance. Impulse control disorder unspecified. Anxiety disorder unspecified. Plan: No change from initial note. Assessment: Vital Signs/I&O: Vital Signs Date Time Temp Pulse Resp B/P (MAP) Pulse Ox O2 Delivery O2 Flow Rate FiO2 04/01/21 06:36 97.4 63 20 148/48 (81) 93 Room Air I & O 03/31/21 03/31/21 04/01/21 15:00 23:00 07:00 Intake Total 120 ml Output Total 2 ml Balance 120 ml -2 ml Labs: Laboratory Tests Test 03/31/21 07:38 Glucose (Fingerstick) 98 mg/dL (70-99) Current Medications: Meds: Laboratory Tests Test 03/31/21 07:38 Glucose (Fingerstick) 98 mg/dL Current Medications Medications (Trade) Dose Ordered Sig/Cierra Route PRN Reason Start Time Stop Time Status Last Admin Dose Admin Acetaminophen (Tylenol) 650 mg PRN Q6HRS PRN PO MILD PAIN / TEMP > 100.3'F 03/12/21 18:15 03/20/21 05:14 Multi-Ingredient Ointment (Analgesic [place]) 1 kory PRN QID PRN TP MUSCLE PAIN 03/12/21 18:15 Al Hydroxide/Mg Hydroxide (Mylanta Plus Xs) 15 ml PRN AFTMEALHC PRN PO DYSPEPSIA 03/12/21 18:15 Magnesium Hydroxide (Milk Of Magnesia) 2,400 mg PRN QHS PRN PO CONSTIPATION 03/12/21 18:15 03/17/21 21:27 Rivastigmine (Exelon 13.3mg) 1 patch DAILY TD 03/13/21 09:00 03/17/21 16:13 DC 03/17/21 12:09 Gabapentin (Neurontin) 300 mg BID PO 03/12/21 21:00 03/31/21 20:37 Memantine (Namenda) 10 mg BID PO 03/12/21 21:00 03/17/21 16:13 DC 03/17/21 12:08 Mirtazapine (Remeron) 7.5 mg DAILY PO 03/13/21 09:00 03/15/21 12:40 DC 03/15/21 08:18 Venlafaxine HCl (Effexor) 50 mg TID PO 03/13/21 09:00 03/14/21 17:30 DC 03/14/21 17:17 Docusate Sodium (Colace) 100 mg BID PO 03/13/21 09:00 03/15/21 10:48 DC 03/15/21 08:19 Metformin HCl (Glucophage) 1,000 mg BIDWMEALS PO 03/13/21 08:00 03/31/21 18:24 Olanzapine (ZyPREXA ZYDIS) 2.5 mg PRN Q2HR PRN PO PSYCHOSIS 03/13/21 07:30 Trazodone HCl (Desyrel) 50 mg PRN QHS PRN PO INSOMNIA 03/13/21 07:30 03/17/21 20:02 Sertraline HCl (Zoloft) 50 mg DAILY PO 03/15/21 09:00 03/17/21 16:13 DC 03/17/21 12:08 Mirtazapine (Remeron) 7.5 mg HS PO 03/16/21 21:00 03/31/21 20:37 Divalproex Sodium (Depakote Sprinkles) 125 mg 0900,1700 PO 03/17/21 09:00 03/26/21 18:07 DC 03/26/21 15:50 Amoxicillin (Amoxil) 500 mg [id number] PO 03/17/21 21:00 03/24/21 21:00 DC 03/24/21 20:17 Sertraline HCl (Zoloft) 75 mg DAILY PO 03/18/21 09:00 03/31/21 08:12 Lactobacillus Rhamnosus (Culturelle) 1 cap BID PO 03/19/21 21:00 03/31/21 20:37 Divalproex Sodium (Depakote Sprinkles) 250 mg 0900,1700 PO 03/27/21 09:00 03/31/21 18:24 I have reviewed the current psychotropics carefully including drug interactions. Risk benefit ratio favors no change other than as noted in my dictated progress note. Diagnosis: Problems: (1) Dementia with behavioral disturbance (2) Major neurocognitive disorder (3) Anxiety disorder (4) Dementia, vascular, with delusions (5) Dementia, vascular, with depression (6) Dementia in Alzheimer's disease with delusions (7) Dementia in Alzheimer's disease with depression (8) Impulse control disorder BRANDY STEVENS MD April 01, 2021 07:00
--- NOTE | 2021-04-01 07:37 | PDOC ---
Exam Note: Da Note: This note is a late entry for 03/31/2021 covers elements not covered in my initial note. Subjective: The patient was seen individually in the evening of 03/31/2021 with Neha SHAW, discussed and reviewed the chart. The patient slept 7 hours previous night. Overall the patient has had some diarrhea. Amoxil has been discontinued. He has been fairly cooperative. He remains confused. Review of Systems: Impaired ambulation. No CV, , pulmonary, eye system symptoms on review. Reliability poor. He does have some diarrhea. Mental Status Exam: The patient is oriented to himself. Insight and judgment, recent and remote memory, attention and concentration, fund of knowledge is poor consistent with his diagnoses. Laboratory Data: Reviewed. Impression: Major neurocognitive disorder Alzheimer vascular with delusion, depression, behavioral disturbance. Impulse control disorder unspecified. Anxiety disorder unspecified. Plan: No change from initial note. Assessment: Vital Signs/I&O: Vital Signs Date Time Temp Pulse Resp B/P (MAP) Pulse Ox O2 Delivery O2 Flow Rate FiO2 04/01/21 06:36 97.4 63 20 148/48 (81) 93 Room Air I & O 03/31/21 03/31/21 04/01/21 15:00 23:00 07:00 Intake Total 120 ml Output Total 2 ml Balance 120 ml -2 ml Labs: Laboratory Tests Test 03/31/21 07:38 Glucose (Fingerstick) 98 mg/dL (70-99) Current Medications: Meds: Laboratory Tests Test 03/31/21 07:38 Glucose (Fingerstick) 98 mg/dL Current Medications Medications (Trade) Dose Ordered Sig/Cierra Route PRN Reason Start Time Stop Time Status Last Admin Dose Admin Acetaminophen (Tylenol) 650 mg PRN Q6HRS PRN PO MILD PAIN / TEMP > 100.3'F 03/12/21 18:15 03/20/21 05:14 Multi-Ingredient Ointment (Analgesic [place]) 1 kory PRN QID PRN TP MUSCLE PAIN 03/12/21 18:15 Al Hydroxide/Mg Hydroxide (Mylanta Plus Xs) 15 ml PRN AFTMEALHC PRN PO DYSPEPSIA 03/12/21 18:15 Magnesium Hydroxide (Milk Of Magnesia) 2,400 mg PRN QHS PRN PO CONSTIPATION 03/12/21 18:15 03/17/21 21:27 Rivastigmine (Exelon 13.3mg) 1 patch DAILY TD 03/13/21 09:00 03/17/21 16:13 DC 03/17/21 12:09 Gabapentin (Neurontin) 300 mg BID PO 03/12/21 21:00 03/31/21 20:37 Memantine (Namenda) 10 mg BID PO 03/12/21 21:00 03/17/21 16:13 DC 03/17/21 12:08 Mirtazapine (Remeron) 7.5 mg DAILY PO 03/13/21 09:00 03/15/21 12:40 DC 03/15/21 08:18 Venlafaxine HCl (Effexor) 50 mg TID PO 03/13/21 09:00 03/14/21 17:30 DC 03/14/21 17:17 Docusate Sodium (Colace) 100 mg BID PO 03/13/21 09:00 03/15/21 10:48 DC 03/15/21 08:19 Metformin HCl (Glucophage) 1,000 mg BIDWMEALS PO 03/13/21 08:00 03/31/21 18:24 Olanzapine (ZyPREXA ZYDIS) 2.5 mg PRN Q2HR PRN PO PSYCHOSIS 03/13/21 07:30 Trazodone HCl (Desyrel) 50 mg PRN QHS PRN PO INSOMNIA 03/13/21 07:30 03/17/21 20:02 Sertraline HCl (Zoloft) 50 mg DAILY PO 03/15/21 09:00 03/17/21 16:13 DC 03/17/21 12:08 Mirtazapine (Remeron) 7.5 mg HS PO 03/16/21 21:00 03/31/21 20:37 Divalproex Sodium (Depakote Sprinkles) 125 mg 0900,1700 PO 03/17/21 09:00 03/26/21 18:07 DC 03/26/21 15:50 Amoxicillin (Amoxil) 500 mg [id number] PO 03/17/21 21:00 03/24/21 21:00 DC 03/24/21 20:17 Sertraline HCl (Zoloft) 75 mg DAILY PO 03/18/21 09:00 03/31/21 08:12 Lactobacillus Rhamnosus (Culturelle) 1 cap BID PO 03/19/21 21:00 03/31/21 20:37 Divalproex Sodium (Depakote Sprinkles) 250 mg 0900,1700 PO 03/27/21 09:00 03/31/21 18:24 I have reviewed the current psychotropics carefully including drug interactions. Risk benefit ratio favors no change other than as noted in my dictated progress note. Diagnosis: Problems: (1) Dementia with behavioral disturbance (2) Major neurocognitive disorder (3) Anxiety disorder (4) Dementia, vascular, with delusions (5) Dementia, vascular, with depression (6) Dementia in Alzheimer's disease with delusions (7) Dementia in Alzheimer's disease with depression (8) Impulse control disorder BRANDY STEVENS MD April 01, 2021 07:37
--- NOTE | 2021-04-01 07:47 | PDOC ---
Exam Note: Da Note: This note is a late entry for 03/31/2021 covers elements not covered in my initial note. Subjective: The patient was seen individually in the evening of 03/31/2021 with Neha SHAW, discussed and reviewed the chart. The patient slept 7 hours previous night. Overall the patient has had some diarrhea. Amoxil has been discontinued. He has been fairly cooperative. He remains confused. Review of Systems: Impaired ambulation. No CV, , pulmonary, eye system symptoms on review. Reliability poor. He does have some diarrhea. Mental Status Exam: The patient is oriented to himself. Insight and judgment, recent and remote memory, attention and concentration, fund of knowledge is poor consistent with his diagnoses. Laboratory Data: Reviewed. Impression: Major neurocognitive disorder Alzheimer vascular with delusion, depression, behavioral disturbance. Impulse control disorder unspecified. Anxiety disorder unspecified. Plan: No change from initial note. Assessment: Vital Signs/I&O: Vital Signs Date Time Temp Pulse Resp B/P (MAP) Pulse Ox O2 Delivery O2 Flow Rate FiO2 04/01/21 06:36 97.4 63 20 148/48 (81) 93 Room Air I & O 03/31/21 03/31/21 04/01/21 15:00 23:00 07:00 Intake Total 120 ml Output Total 2 ml Balance 120 ml -2 ml Labs: Laboratory Tests Test 04/01/21 07:42 Glucose (Fingerstick) 89 mg/dL (70-99) Current Medications: Meds: Laboratory Tests Test 04/01/21 07:42 Glucose (Fingerstick) 89 mg/dL Current Medications Medications (Trade) Dose Ordered Sig/Cierra Route PRN Reason Start Time Stop Time Status Last Admin Dose Admin Acetaminophen (Tylenol) 650 mg PRN Q6HRS PRN PO MILD PAIN / TEMP > 100.3'F 03/12/21 18:15 03/20/21 05:14 Multi-Ingredient Ointment (Analgesic [place]) 1 kory PRN QID PRN TP MUSCLE PAIN 03/12/21 18:15 Al Hydroxide/Mg Hydroxide (Mylanta Plus Xs) 15 ml PRN AFTMEALHC PRN PO DYSPEPSIA 03/12/21 18:15 Magnesium Hydroxide (Milk Of Magnesia) 2,400 mg PRN QHS PRN PO CONSTIPATION 03/12/21 18:15 03/17/21 21:27 Rivastigmine (Exelon 13.3mg) 1 patch DAILY TD 03/13/21 09:00 03/17/21 16:13 DC 03/17/21 12:09 Gabapentin (Neurontin) 300 mg BID PO 03/12/21 21:00 03/31/21 20:37 Memantine (Namenda) 10 mg BID PO 03/12/21 21:00 03/17/21 16:13 DC 03/17/21 12:08 Mirtazapine (Remeron) 7.5 mg DAILY PO 03/13/21 09:00 03/15/21 12:40 DC 03/15/21 08:18 Venlafaxine HCl (Effexor) 50 mg TID PO 03/13/21 09:00 03/14/21 17:30 DC 03/14/21 17:17 Docusate Sodium (Colace) 100 mg BID PO 03/13/21 09:00 03/15/21 10:48 DC 03/15/21 08:19 Metformin HCl (Glucophage) 1,000 mg BIDWMEALS PO 03/13/21 08:00 03/31/21 18:24 Olanzapine (ZyPREXA ZYDIS) 2.5 mg PRN Q2HR PRN PO PSYCHOSIS 03/13/21 07:30 Trazodone HCl (Desyrel) 50 mg PRN QHS PRN PO INSOMNIA 03/13/21 07:30 03/17/21 20:02 Sertraline HCl (Zoloft) 50 mg DAILY PO 03/15/21 09:00 03/17/21 16:13 DC 03/17/21 12:08 Mirtazapine (Remeron) 7.5 mg HS PO 03/16/21 21:00 03/31/21 20:37 Divalproex Sodium (Depakote Sprinkles) 125 mg 0900,1700 PO 03/17/21 09:00 03/26/21 18:07 DC 03/26/21 15:50 Amoxicillin (Amoxil) 500 mg [id number] PO 03/17/21 21:00 03/24/21 21:00 DC 03/24/21 20:17 Sertraline HCl (Zoloft) 75 mg DAILY PO 03/18/21 09:00 03/31/21 08:12 Lactobacillus Rhamnosus (Culturelle) 1 cap BID PO 03/19/21 21:00 03/31/21 20:37 Divalproex Sodium (Depakote Sprinkles) 250 mg 0900,1700 PO 03/27/21 09:00 03/31/21 18:24 I have reviewed the current psychotropics carefully including drug interactions. Risk benefit ratio favors no change other than as noted in my dictated progress note. Diagnosis: Problems: (1) Dementia with behavioral disturbance (2) Major neurocognitive disorder (3) Anxiety disorder (4) Dementia associated with alcoholism with behavioral disturbance (5) Dementia, vascular, with delusions (6) Dementia, vascular, with depression (7) Dementia in Alzheimer's disease with delusions (8) Dementia in Alzheimer's disease with depression (9) Impulse control disorder BRANDY STEVENS MD April 01, 2021 07:47
[2021-04-01] MEDS: GABAPENTIN 300 MG CAPSULE. PO SCH ×2 (08:29→20:37)
[2021-04-01] MEDS: LACTOBACILLUS RHAMNOSUS GG 1 CAPSULE. PO SCH ×2 (08:29→20:37)
[2021-04-01] MEDS: DIVALPROEX 125 MG CAP.SPRINK PO SCH ×2 (08:29→17:00)
[2021-04-01] MEDS: SERTRALINE 25 MG TABLET. PO SCH (08:29)
[2021-04-01] MEDS: metFORMIN 500 MG TABLET PO SCH ×2 (08:29→17:00)
[2021-04-01 15:48] VITALS: BP 126/78
[2021-04-01] MEDS: MIRTAZAPINE 7.5 MG TABLET. PO SCH (20:37)
[2021-04-02 05:58] VITALS: BP 124/83
--- NOTE | 2021-04-02 07:51 | PDOC ---
Exam Note: Da Note: This note is a late entry for 04/01/2021 covers elements not covered in my initial note. Subjective: The patient was seen individually in the evening of 04/01/2021 with Rosas SHAW, discussed and reviewed the chart. The patient slept 5-1/4 hours previous night. The patient remains confused but not agitated or aggressive. Review of Systems: Impaired ambulation. No CV, , pulmonary, eye system symptoms on review. Reliability poor. Mental Status Exam: The patient is oriented to himself. Insight and judgment, recent and remote memory, attention and concentration, fund of knowledge is poor consistent with his diagnoses. Laboratory Data: Reviewed. Impression: Major neurocognitive disorder Alzheimer vascular with delusion, depression, behavioral disturbance. Impulse control disorder unspecified. Anxiety disorder unspecified. Plan: No change from initial note. Assessment: Vital Signs/I&O: Vital Signs Date Time Temp Pulse Resp B/P (MAP) Pulse Ox O2 Delivery O2 Flow Rate FiO2 04/02/21 05:58 97.0 66 18 124/83 (97) 96 04/01/21 15:48 Room Air I & O 04/01/21 04/01/21 04/02/21 15:00 23:00 07:00 Intake Total 220 ml 240 ml Balance 220 ml 240 ml Labs: Laboratory Tests Test 04/02/21 07:45 Glucose (Fingerstick) 141 mg/dL (70-99) H Current Medications: Meds: Laboratory Tests Test 04/02/21 07:45 Glucose (Fingerstick) 141 mg/dL Current Medications Medications (Trade) Dose Ordered Sig/Cierra Route PRN Reason Start Time Stop Time Status Last Admin Dose Admin Acetaminophen (Tylenol) 650 mg PRN Q6HRS PRN PO MILD PAIN / TEMP > 100.3'F 03/12/21 18:15 03/20/21 05:14 Multi-Ingredient Ointment (Analgesic [place]) 1 kory PRN QID PRN TP MUSCLE PAIN 03/12/21 18:15 Al Hydroxide/Mg Hydroxide (Mylanta Plus Xs) 15 ml PRN AFTMEALHC PRN PO DYSPEPSIA 03/12/21 18:15 Magnesium Hydroxide (Milk Of Magnesia) 2,400 mg PRN QHS PRN PO CONSTIPATION 03/12/21 18:15 03/17/21 21:27 Rivastigmine (Exelon 13.3mg) 1 patch DAILY TD 03/13/21 09:00 03/17/21 16:13 DC 03/17/21 12:09 Gabapentin (Neurontin) 300 mg BID PO 03/12/21 21:00 04/01/21 20:37 Memantine (Namenda) 10 mg BID PO 03/12/21 21:00 03/17/21 16:13 DC 03/17/21 12:08 Mirtazapine (Remeron) 7.5 mg DAILY PO 03/13/21 09:00 03/15/21 12:40 DC 03/15/21 08:18 Venlafaxine HCl (Effexor) 50 mg TID PO 03/13/21 09:00 03/14/21 17:30 DC 03/14/21 17:17 Docusate Sodium (Colace) 100 mg BID PO 03/13/21 09:00 03/15/21 10:48 DC 03/15/21 08:19 Metformin HCl (Glucophage) 1,000 mg BIDWMEALS PO 03/13/21 08:00 04/01/21 17:00 Olanzapine (ZyPREXA ZYDIS) 2.5 mg PRN Q2HR PRN PO PSYCHOSIS 03/13/21 07:30 Trazodone HCl (Desyrel) 50 mg PRN QHS PRN PO INSOMNIA 03/13/21 07:30 03/17/21 20:02 Sertraline HCl (Zoloft) 50 mg DAILY PO 03/15/21 09:00 03/17/21 16:13 DC 03/17/21 12:08 Mirtazapine (Remeron) 7.5 mg HS PO 03/16/21 21:00 04/01/21 20:37 Divalproex Sodium (Depakote Sprinkles) 125 mg 0900,1700 PO 03/17/21 09:00 03/26/21 18:07 DC 03/26/21 15:50 Amoxicillin (Amoxil) 500 mg [id number] PO 03/17/21 21:00 03/24/21 21:00 DC 03/24/21 20:17 Sertraline HCl (Zoloft) 75 mg DAILY PO 03/18/21 09:00 04/01/21 08:29 Lactobacillus Rhamnosus (Culturelle) 1 cap BID PO 03/19/21 21:00 04/01/21 20:37 Divalproex Sodium (Depakote Sprinkles) 250 mg 0900,1700 PO 03/27/21 09:00 04/01/21 17:00 I have reviewed the current psychotropics carefully including drug interactions. Risk benefit ratio favors no change other than as noted in my dictated progress note. Diagnosis: Problems: (1) Dementia with behavioral disturbance (2) Major neurocognitive disorder (3) Anxiety disorder (4) Dementia, vascular, with delusions (5) Dementia, vascular, with depression (6) Dementia in Alzheimer's disease with delusions (7) Dementia in Alzheimer's disease with depression (8) Impulse control disorder BRANDY STEVENS MD April 02, 2021 07:51
[2021-04-02] MEDS: LACTOBACILLUS RHAMNOSUS GG 1 CAPSULE. PO SCH ×2 (08:49→20:35)
[2021-04-02] MEDS: SERTRALINE 25 MG TABLET. PO SCH (08:50)
[2021-04-02] MEDS: metFORMIN 500 MG TABLET PO SCH ×2 (08:50→17:34)
[2021-04-02] MEDS: DIVALPROEX 125 MG CAP.SPRINK PO SCH ×2 (08:50→17:34)
[2021-04-02] MEDS: GABAPENTIN 300 MG CAPSULE. PO SCH ×2 (08:50→20:35)
[2021-04-02 15:53] VITALS: BP 122/75
[2021-04-02] MEDS: MIRTAZAPINE 7.5 MG TABLET. PO SCH (20:35)
--- NOTE | 2021-04-02 21:50 | PDOC ---
Exam Note: Da Note: Please also refer to the separate dictated note~for this date of service dictated separately.~Patient seen individually. Discussed the patient with Nursing staff reviewed the chart.~Reviewed interim history and current functioning. Reviewed vital signs,~Labs/ Radiology~and current medications noted below. Continue current treatment with the changes noted in the dictated addendum note Assessment: Vital Signs/I&O: Vital Signs Date Time Temp Pulse Resp B/P (MAP) Pulse Ox O2 Delivery O2 Flow Rate FiO2 04/02/21 15:53 98.3 72 18 122/75 (91) 94 04/01/21 15:48 Room Air I & O 04/01/21 04/01/21 04/02/21 15:00 23:00 07:00 Intake Total 220 ml 240 ml Balance 220 ml 240 ml Labs: Laboratory Tests Test 04/02/21 07:45 Glucose (Fingerstick) 141 mg/dL (70-99) H Current Medications: Meds: Laboratory Tests Test 04/02/21 07:45 Glucose (Fingerstick) 141 mg/dL Current Medications Medications (Trade) Dose Ordered Sig/Cierra Route PRN Reason Start Time Stop Time Status Last Admin Dose Admin Acetaminophen (Tylenol) 650 mg PRN Q6HRS PRN PO MILD PAIN / TEMP > 100.3'F 03/12/21 18:15 03/20/21 05:14 Multi-Ingredient Ointment (Analgesic [place]) 1 kory PRN QID PRN TP MUSCLE PAIN 03/12/21 18:15 Al Hydroxide/Mg Hydroxide (Mylanta Plus Xs) 15 ml PRN AFTMEALHC PRN PO DYSPEPSIA 03/12/21 18:15 Magnesium Hydroxide (Milk Of Magnesia) 2,400 mg PRN QHS PRN PO CONSTIPATION 03/12/21 18:15 03/17/21 21:27 Rivastigmine (Exelon 13.3mg) 1 patch DAILY TD 03/13/21 09:00 03/17/21 16:13 DC 03/17/21 12:09 Gabapentin (Neurontin) 300 mg BID PO 03/12/21 21:00 04/02/21 20:35 Memantine (Namenda) 10 mg BID PO 03/12/21 21:00 03/17/21 16:13 DC 03/17/21 12:08 Mirtazapine (Remeron) 7.5 mg DAILY PO 03/13/21 09:00 03/15/21 12:40 DC 03/15/21 08:18 Venlafaxine HCl (Effexor) 50 mg TID PO 03/13/21 09:00 03/14/21 17:30 DC 03/14/21 17:17 Docusate Sodium (Colace) 100 mg BID PO 03/13/21 09:00 03/15/21 10:48 DC 03/15/21 08:19 Metformin HCl (Glucophage) 1,000 mg BIDWMEALS PO 03/13/21 08:00 04/02/21 17:34 Olanzapine (ZyPREXA ZYDIS) 2.5 mg PRN Q2HR PRN PO PSYCHOSIS 03/13/21 07:30 Trazodone HCl (Desyrel) 50 mg PRN QHS PRN PO INSOMNIA 03/13/21 07:30 03/17/21 20:02 Sertraline HCl (Zoloft) 50 mg DAILY PO 03/15/21 09:00 03/17/21 16:13 DC 03/17/21 12:08 Mirtazapine (Remeron) 7.5 mg HS PO 03/16/21 21:00 04/02/21 20:35 Divalproex Sodium (Depakote Sprinkles) 125 mg 0900,1700 PO 03/17/21 09:00 03/26/21 18:07 DC 03/26/21 15:50 Amoxicillin (Amoxil) 500 mg [id number] PO 03/17/21 21:00 03/24/21 21:00 DC 03/24/21 20:17 Sertraline HCl (Zoloft) 75 mg DAILY PO 03/18/21 09:00 04/02/21 08:50 Lactobacillus Rhamnosus (Culturelle) 1 cap BID PO 03/19/21 21:00 04/02/21 20:35 Divalproex Sodium (Depakote Sprinkles) 250 mg 0900,1700 PO 03/27/21 09:00 04/02/21 17:34 I have reviewed the current psychotropics carefully including drug interactions. Risk benefit ratio favors no change other than as noted in my dictated progress note. Diagnosis: Problems: (1) Dementia with behavioral disturbance (2) Major neurocognitive disorder (3) Anxiety disorder (4) Dementia, vascular, with delusions (5) Dementia, vascular, with depression (6) Dementia in Alzheimer's disease with delusions (7) Dementia in Alzheimer's disease with depression (8) Impulse control disorder BRANDY STEVENS MD April 02, 2021 21:50
[2021-04-03 06:01] VITALS: BP 129/76
[2021-04-03] MEDS: metFORMIN 500 MG TABLET PO SCH ×2 (08:47→17:28)
[2021-04-03] MEDS: LACTOBACILLUS RHAMNOSUS GG 1 CAPSULE. PO SCH ×2 (08:47→19:48)
[2021-04-03] MEDS: DIVALPROEX 125 MG CAP.SPRINK PO SCH ×2 (08:47→17:28)
[2021-04-03] MEDS: GABAPENTIN 300 MG CAPSULE. PO SCH ×2 (08:47→19:47)
[2021-04-03] MEDS: SERTRALINE 25 MG TABLET. PO SCH (08:47)
[2021-04-03 16:04] VITALS: BP 128/67
[2021-04-03] MEDS: MIRTAZAPINE 7.5 MG TABLET. PO SCH (19:48)
[2021-04-04 06:11] VITALS: BP 98/60
[2021-04-04] MEDS: LACTOBACILLUS RHAMNOSUS GG 1 CAPSULE. PO SCH ×2 (08:15→20:02)
[2021-04-04] MEDS: metFORMIN 500 MG TABLET PO SCH ×2 (08:15→17:13)
[2021-04-04] MEDS: DIVALPROEX 125 MG CAP.SPRINK PO SCH ×2 (08:15→17:13)
[2021-04-04] MEDS: GABAPENTIN 300 MG CAPSULE. PO SCH ×2 (08:15→20:02)
[2021-04-04] MEDS: SERTRALINE 25 MG TABLET. PO SCH (08:16)
--- NOTE | 2021-04-04 14:35 | PN ---
DATE: 04/03/2021 SUBJECTIVE: The patient was seen today, met with the staff. Chart was reviewed and also covering for Dr. Rosas. Staff reports no major behavior problems except trying to wander, increased confusion. Also, difficult to redirect and also disorganized with his thinking and needing assistance with ADLs. Staff reports no falls today. OBJECTIVE: VITAL SIGNS: Temperature 97.3, blood pressure 124/78, pulse 64, respirations 18, O2 sat 97%. Slept about 8 hours last night. CURRENT MEDICATIONS: Include Depakote 250 mg twice a day, Zoloft 75 mg daily, mirtazapine 7.5 mg at night, gabapentin 300 mg twice a day and trazodone 50 mg at night p.r.n. for sleep. LABORATORY DATA: The patient's lab reviewed. The patient's Depakote level was 36. ASSESSMENT: Major neurocognitive disorder, most likely vascular with delusion, depression, behavioral disturbances. PLAN: Continue with current treatment plan. Length of stay 7-10 days. ERIN/PORFIRIO/ANDREW DR: Kathleen TID: [id number] [facility]
[2021-04-04 16:16] VITALS: BP 107/67
[2021-04-04] MEDS: MIRTAZAPINE 7.5 MG TABLET. PO SCH (20:02)
--- NOTE | 2021-04-05 05:55 | PN ---
DATE: 04/04/2021 SUBJECTIVE: The patient was seen today, met with the staff, chart reviewed, and also covering for Dr. Rosas. The staff reports increased behavior problems, confusion, disorganized thinking and also difficult to redirect. The patient is needing assistance with the ADLs. Staff reports no falls. OBSERVATION: VITAL SIGNS: Temperature 97.1, blood pressure 98/60, pulse 66, respirations 18, O2 sat 96%. Slept about 7 hours last night. The patient's appetite is fair. His current medications include Depakote 250 mg twice a day, Zoloft 75 mg daily, mirtazapine 7.5 mg at night, gabapentin 300 mg twice a day and trazodone 50 mg at night p.r.n. for sleep. The patient is not having any major side effects to medications. LABORATORY DATA: Reviewed. ASSESSMENT: Major neurocognitive disorder, most likely vascular, with depression, delusions and behavior problems. PLAN: To continue with the treatment. LENGTH OF STAY: 7-10 days. The patient was accepted at [facility]. Estimated length of stay and discharge, most likely next week. MISTI DR: Kathleen TID: [id number] MTDDelia
[2021-04-05 06:31] VITALS: BP 111/69
[2021-04-05] MEDS: GABAPENTIN 300 MG CAPSULE. PO SCH ×2 (08:56→20:09)
[2021-04-05] MEDS: DIVALPROEX 125 MG CAP.SPRINK PO SCH ×2 (08:56→17:38)
[2021-04-05] MEDS: metFORMIN 500 MG TABLET PO SCH ×2 (08:56→17:39)
[2021-04-05] MEDS: SERTRALINE 25 MG TABLET. PO SCH (08:56)
[2021-04-05] MEDS: LACTOBACILLUS RHAMNOSUS GG 1 CAPSULE. PO SCH ×2 (08:56→20:09)
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
[2021-04-05 16:06] VITALS: BP 115/70
[2021-04-05] MEDS: MIRTAZAPINE 7.5 MG TABLET. PO SCH (20:09)
--- NOTE | 2021-04-05 23:47 | PN ---
DATE: 04/05/2021 SUBJECTIVE: The patient was seen today, met with the staff, chart reviewed and also participated in the treatment review conference. The patient sleeping about 7 hours at night. Appetite fair. Ate about 52% of his meals. The patient is awaiting for placement. OBJECTIVE: OBSERVATION VITAL SIGNS: Temperature 97.8, blood pressure 111/69, pulse 63, respirations 16, O2 sat 97%. GENERAL: Slept about 8 hours last night. The patient is compliant with the medications. CURRENT MEDICATIONS: Include Depakote 250 mg twice a day, Zoloft 75 mg daily, mirtazapine 7.5 mg at night, gabapentin 300 mg twice a day and trazodone 50 mg at night p.r.n. for sleep. The patient denies of any side effects to medications. LABORATORY DATA: The patient's lab reviewed. ASSESSMENT: Major neurocognitive disorder, most likely vascular with depression, delusions and behavioral disturbances. PLAN: To continue with the treatment. LENGTH OF STAY: Seven days. He is hoping to be discharged as soon as a placement is available. GENNARO DR: Kathleen TID: [id number] [facility] SYSTEM[facility]
[2021-04-06 06:12] VITALS: BP 94/69
[2021-04-06] MEDS: GABAPENTIN 300 MG CAPSULE. PO SCH ×2 (08:10→21:03)
[2021-04-06] MEDS: SERTRALINE 25 MG TABLET. PO SCH (08:10)
[2021-04-06] MEDS: DIVALPROEX 125 MG CAP.SPRINK PO SCH ×2 (08:10→17:00)
[2021-04-06] MEDS: LACTOBACILLUS RHAMNOSUS GG 1 CAPSULE. PO SCH ×2 (08:10→21:03)
[2021-04-06] MEDS: metFORMIN 500 MG TABLET PO SCH ×2 (08:11→17:00)
[2021-04-06 16:25] VITALS: BP 92/64
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
[2021-04-06] MEDS: MIRTAZAPINE 7.5 MG TABLET. PO SCH (21:03)
[2021-04-07] MEDS ORDERED: METH57CR17 TP (02:44)
[2021-04-07] MEDS ORDERED: MAG30ORA2 PO (02:45)
[2021-04-07] MEDS ORDERED: ACET325T21 PO (02:48)
[2021-04-07] MEDS ORDERED: DIVA125C2 PO (02:49)
[2021-04-07] MEDS ORDERED: SERT50TA PO (02:50)
[2021-04-07] MEDS ORDERED: SERT25TA PO (02:51)
[2021-04-07] MEDS ORDERED: TRAZ-120 PO (02:52)
[2021-04-07] MEDS ORDERED: OLAN5TAB7 PO (02:53)
[2021-04-07] MEDS ORDERED: LACT1CAP21 PO (02:55)
[2021-04-07 06:03] VITALS: BP 112/73
[2021-04-07] MEDS: SERTRALINE 25 MG TABLET. PO SCH (08:29)
[2021-04-07] MEDS: GABAPENTIN 300 MG CAPSULE. PO SCH (08:29)
[2021-04-07] MEDS: LACTOBACILLUS RHAMNOSUS GG 1 CAPSULE. PO SCH (08:29)
[2021-04-07] MEDS: metFORMIN 500 MG TABLET PO SCH (08:29)
[2021-04-07] MEDS: DIVALPROEX 125 MG CAP.SPRINK PO SCH (08:30)
== END 2021-04-07 10:45 | DRG 57 ==
LOC: GEROPSY 15:55
PROVIDERS: ADMIT Psychiatry & Neurology Psychiatry; ATTEND Psychiatry & Neurology Psychiatry
DX: G30.9 Alzheimer's disease, unspecified (principal); F01.51 Vascular dementia, unspecified severity, with behavioral disturbance; F02.81 Dementia in other diseases classified elsewhere, unspecified severity, with behavioral disturbance; F10.27 Alcohol dependence with alcohol-induced persisting dementia; N39.0 Urinary tract infection, site not specified; E11.9 Type 2 diabetes mellitus without complications; E78.5 Hyperlipidemia, unspecified; F32.9 Major depressive disorder, single episode, unspecified; F41.1 Generalized anxiety disorder; F63.9 Impulse disorder, unspecified; Z20.822 Contact with and (suspected) exposure to COVID-19; F41.9 Anxiety disorder, unspecified; G47.00 Insomnia, unspecified; Z79.84 Long term (current) use of oral hypoglycemic drugs; Z79.899 Other long term (current) drug therapy; Z66 Do not resuscitate; Z86.16 Personal history of COVID-19
CPT/HCPCS: 36415; 70450; 80053; 80061; 80164; 81001; 82306; 82607; 82947; 83036; 83540; 83550; 83735; 84436; 84443; 84480; 85025; 85379; 86592; 87077; 87086; 87186; 87426; 87493; 93005; U0003